=== PATIENT | female | born 1985 | race Caucasian/White ===

== ENCOUNTER 2017-07-27 05:19 | Inpatient (IN) | payer OTHER ==
--- NOTE | 2017-07-24 05:59 | HPE ---
DATE OF PLANNED ADMISSION: 07/27/2017 This lady is having a repeat section 07/27/2017. She is a 32-year-old, 4, para 2 with one living child, whose last menstrual period (LMP) was 10/31/2016, estimated date of delivery (EDC) 08/17/2017. Her past history is in 2011, at 32 weeks, had a classical section for hydrocephalic with demise. In 2013, had a repeat section at 37 weeks of gestation, delivered a live male , 6 pounds 1 ounce. The at 32 weeks of gestation was 4.6 pounds, male, but had marked abnormalities. In August 2014, had spontaneous (AB) with no dilation and curettage (D and C). ALLERGIES: She has no allergies. She is on vitamins, otherwise is unremarkable. The rest of her examination, she is normocephalic, atraumatic. Neck full range of motions. Pupils equal and reactive to light. Distal pulses are symmetric. No evidence of deep venous thrombosis (DVT), pulmonary embolism (PE), or superficial phlebitis. Chest is clear bilaterally to bases. No wheezes or rhonchi. No costovertebral angle (CVA) tenderness. Abdomen is soft. Four quadrant bowel sounds are noted. The incisional site is nontender. There are no rashes, lesions, or pruritus. No arthralgia or myalgia. No complaints of cough, wheezes, shortness of breath, or dyspnea on exertion. No allergies. No chest pain. No bleeding. Neurologically complete. No incontinence, urgency, or frequency. No nausea, vomiting, diarrhea, or constipation. No diabetic issues. 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 PAST MEDICAL HISTORY: Unremarkable. PAST SURGICAL HISTORY: As mentioned. FAMILY HISTORY: Is noncontributory. She does not smoke, drink, abuse drugs, and she has no domestic violence. Today, she weighs 145 pounds, is 5 feet 3 inches. Blood pressure is 118/65, pulse is 83, and temperature is 98.1. We counseled her regarding repeat section, including hemorrhage, infection, perforation, , reoperation, remote possibility of blood transfusion, remote possibility of hysterectomy, remote possibility of laceration, remote possibility of admission to intensive care unit (NICU). Patient has expressed understanding of the risks and benefits, and she did ask about trial of labor after section (TOLAC); however, it is not recommended after having one classical section. She has been treated for pyelonephritis and has test of cure, which was negative, and the rest of the she is on prophylactic Macrobid. IN SUMMARY: We have a 39+ weeks for elective repeat section. Risks and benefits were outlined. Patient understands, signed and witnessed the consent form, and procedure is planned as present. We spent 40 minutes in the [id number] consultation.
[2017-07-27] VITALS (8 sets, daily range): BP systolic 102–117; BP diastolic 55–75
[~2017-07-27] VITALS: Ht 160 cm; Wt 64.8 kg
[~2017-07-27 05:19] MED LIST: CEPH500C PO; PRENTAB55 PO
[2017-07-27] MEDS ORDERED: BUPIVACAINE HCL 0.25% 10 ML VIAL INFIL PRN (06:00)
[2017-07-27] MEDS ORDERED: ACETAMINOPHEN 650 MG SUPP PR ONE (06:00)
[2017-07-27] MEDS ORDERED: LR 1,000 ML IV SCH ×2 (06:00→09:30)
[2017-07-27] MEDS ORDERED: LR 1,000 ML IV ONE (06:00)
[2017-07-27] MEDS ORDERED: AZITHROMYCIN INJ 500 MG, VIAL MATE ADAPTER 1 EACH in D5W 250 ML IV ONE (06:00)
[2017-07-27] MEDS ORDERED: BICITRA 30ML SOLN UDC PO ONE (06:00)
[2017-07-27 06:16] LABS: MEAN CORPUSCULAR HEMOGLOBIN 27.8 pg (27.0-33.0); MEAN CORPUSCULAR HGB CONC 33.6 g/dl (32.0-36.5); MEAN CORPUSCULAR VOLUME 82.8 fl (80.0-96.0); PLATELET COUNT, AUTOMATED 244 10^3/uL (150-450); RED CELL DISTRIBUTION WIDTH 15.1 % (11.5-14.5); WHITE BLOOD COUNT 10.2 10^3/uL (4.0-10.0)
[2017-07-27] MEDS ORDERED: CEPH500T PO (07:20)
[2017-07-27] MEDS ORDERED: PRENTAB9 PO (07:20)
[2017-07-27] MEDS ORDERED: ONDANSETRON 4MG/2ML VIAL (J2405) IV PRN ×2 (08:03→09:30)
[2017-07-27] MEDS ORDERED: METOCLOPRAMIDE INJ 10MG/2ML VIAL (J2765) IV PRN ×2 (08:03→09:30)
[2017-07-27] MEDS ORDERED: NALOXONE INJ 0.4 MG/1 ML VIAL (J2310) IV PRN ×2 (08:03)
[2017-07-27] MEDS ORDERED: PHENYLephrine HCL 500 MCG/5 ML (100MCG/ML) SYRINGE (J2370) As Ordered ONE (08:10)
[2017-07-27] MEDS ORDERED: MORPHINE PRES-FREE INJ 10 MG/10 ML VIAL (J2274) As Ordered ONE (08:10)
[2017-07-27] MEDS ORDERED: OXYTOCIN INJ 10 UNITS/ML VIAL (J2590) As Ordered ONE (08:10)
[2017-07-27] MEDS ORDERED: KETOROLAC 60 MG/2 ML VIAL (J1885) As Ordered ONE (08:44)
[2017-07-27 08:48] LABS: CORD GAS HCO3 A 25.6 MEQ/L; CORD GAS O2 SAT A 24.4 %; CORD GAS PCO2 A 60.7 mmHg; CORD GAS PH A 7.243 UNITS; CORD GAS PO2 A 15.5 mmHg; CORD GAS SBC A 20.2 MEQ/L; CORD GAS TCO2 A 27.5 MEQ/L
[2017-07-27 08:49] LABS: CORD GAS ABE V -2.2; CORD GAS HCO3 V 23.7 MEQ/L; CORD GAS O2 SAT V 56.6 %; CORD GAS PCO2 V 44.6 mmHg; CORD GAS PH V 7.343 UNITS; CORD GAS PO2 V 23.8 mmHg; CORD GAS SBC V 21.6 MEQ/L; CORD GAS TCO2 V 25.1 MEQ/L
[2017-07-27] MEDS ORDERED: OXYTOCIN DRIP 30 UNITS in APPROPRIATE DILUENT 1 EA IV SCH (09:09)
[2017-07-27] MEDS ORDERED: RHOGAM 300 MCG (1500 IU) INJ (J2790) IM SCH (09:15)
[2017-07-27] MEDS ORDERED: MEASLES,MUMPS,RUBELLA VACCINE INJ (MMR-II) (90707) SC SCH (09:15)
[2017-07-27] MEDS ORDERED: MOM 30ML SUSPENSION UDC PO PRN (09:15)
[2017-07-27] MEDS ORDERED: DOCUSATE SODIUM 100 MG CAP PO PRN (09:15)
[2017-07-27] MEDS ORDERED: ANUSOL HC CREAM 30GM TOP PRN (09:15)
[2017-07-27] MEDS ORDERED: PERCOCET 5MG/325MG TAB PO PRN ×2 (09:15)
[2017-07-27] MEDS ORDERED: OXYTOCIN INJ 10 UNITS/ML VIAL (J2590) IV ONE (09:15)
[2017-07-27] MEDS ORDERED: METHYLERGONOVINE MALEATE 0.2 MG/ML VIAL (J2210) IM PRN (09:15)
[2017-07-27] MEDS ORDERED: MEPERIDINE INJ 25 MG/ML VIAL (J2175) IV PRN (09:30)
[2017-07-27] MEDS ORDERED: NALBUPHINE HCL 10 MG/ML AMP (J2300) IV PRN (09:30)
[2017-07-27] MEDS ORDERED: KETOROLAC 30 MG/ML VIAL (J1885) IV PRN (09:30)
[2017-07-27] MEDS ORDERED: fentaNYL 100 MCG/2 ML INJECTION (J3010) IV PRN (09:30)
[2017-07-27 09:34] LABS: HBSAG L&D NEGATIVE (NEGATIVE)
[2017-07-27] MEDS: NALBUPHINE HCL 10 MG/ML AMP (J2300) IV PRN ×2 (11:09→15:45)
[2017-07-27] MEDS: LR 1,000 ML IV SCH ×2 (12:00→15:30)
[2017-07-27] MEDS: IBUPROFEN 800 MG TAB PO SCH (17:14)
[2017-07-28] MEDS: IBUPROFEN 800 MG TAB PO SCH ×3 (00:21→17:06)
[2017-07-28 02:00] VITALS: BP 100/60
[2017-07-28 06:00] VITALS: BP 107/63
[2017-07-28 07:00] LABS: MEAN CORPUSCULAR HEMOGLOBIN 28.6 pg (27.0-33.0); MEAN CORPUSCULAR HGB CONC 33.9 g/dl (32.0-36.5); MEAN CORPUSCULAR VOLUME 84.5 fl (80.0-96.0); PLATELET COUNT, AUTOMATED 216 10^3/uL (150-450); RED CELL DISTRIBUTION WIDTH 15.6 % (11.5-14.5); WHITE BLOOD COUNT 12.7 10^3/uL (4.0-10.0)
--- NOTE | 2017-07-28 08:42 | IPN ---
DATE: 07/28/2017 day 2. This lady had a repeat section because of a classical previous section, live male infant 5 pounds 14 ounces, 2660 grams, of 8 and 9 and 1 and 5 minutes respectively. Arterial pH was 7.24, base excess -3.0, venous pH was 7.34, base excess -2.2. Admitting hemoglobin 13.4, hematocrit 39.9 and platelets were 244. Her day 1 hemoglobin 12.6, hematocrit 37.2 and platelets are 216. Vital signs: Today her blood pressure is 107/63, respirations 17, pulse 74 and temperature 97.6. She is presently breast-feeding, doing well, passing gas, voiding, has had a bowel movement. We discussed phlebitis, cystitis, mastitis, metritis and cellulitis, diet, excise pain management, perineal breast and wound care. She is planning on discharge tomorrow and she is requesting a Mirena IUCD for contraception. We had a discussion regarding her repeat section yesterday and the fact that she had a classical section and on entry into the abdomen we noticed an extension up on the anterior vertical incision of her section scar and also extension on the right side prior to actually initiating the section, indicating that there was subsequently a weakness in the previous vertical incision. We did repair them separately before repairing the rest of the incisional site, however, she plans on having a repeat section perhaps earlier than 37 weeks may be indicated. We will revisit this issue at her checkup. The patient is planned on discharge for tomorrow. cc: Stacey Holloway
[2017-07-28] MEDS: PRENATAL VITAMINS CHEWABLE TABLET PO SCH (10:02)
[2017-07-28 12:03] VITALS: BP 129/66
[2017-07-28 14:32] VITALS: BP 118/72
[2017-07-28 18:25] VITALS: BP 117/71
[2017-07-29] MEDS: IBUPROFEN 800 MG TAB PO SCH ×2 (00:53→08:28)
[2017-07-29 06:06] VITALS: BP 127/75
[2017-07-29] MEDS: PRENATAL VITAMINS CHEWABLE TABLET PO SCH (08:28)
[2017-07-29] MEDS ORDERED: IBUP-1114 PO (08:29)
[2017-07-29] MEDS ORDERED: OXYC1TAB23 PO (08:30)
[2017-07-29] MEDS ORDERED: MOM30SS PO (08:38)
[2017-07-29] MEDS ORDERED: COLA100C5 PO (08:38)
[2017-07-29] MEDS ORDERED: ANUS2.5C2 TOP (08:38)
[2017-07-29] MEDS ORDERED: ADACEL/BOOSTRIX VACCINE (DIPHTH/PERTUSS/ACELL/TETANUS)0.5ML SYR (90715) IM ONE (09:00)
--- NOTE | 2017-07-29 16:28 | DSES ---
DATE OF ADMISSION: 07/27/2017 DATE OF DISCHARGE: 07/29/2017 This lady is a 32-year-old 3, now para 3, who had a repeat section because of her previous classical section. Delivered a live male , 5 pounds 14 ounces, 2660 grams, of 8 and 9 at one and five minutes, respectively. Arterial pH was 7.24, base excess -3.0, venous pH 7.34, base excess -2.2. Admitting hemoglobin was 13.4, hematocrit 39.2, and platelets were 244. Discharge hemoglobin 12.6, hematocrit 37.2 and platelets are 216. We discussed phlebitis, cystitis, mastitis, metritis, and cellulitis, diet, exercise pain management, and perineal, breast, and wound care. At the time of her section she had a defect anteriorly and vertically from her previous classical section before we ever actually got to do the section. This will have to be taken into consideration if she wishes to have another because of the state of her uterus at that time. The rest the examination is unremarkable. Her vital signs: Blood pressure is 127/75, respirations 19, pulse 66, and temperature is 98.1. She is normocephalic, atraumatic. Neck: Full range of motion. Pupils equal and reactive to light. Distal pulses are symmetric. No evidence of deep vein thrombosis (DVT) , pulmonary embolism (PE) or superficial phlebitis. Lungs are clear bilaterally to bases. No wheezes or rhonchi. No costovertebral angle (CVA) tenderness. Uterus is 2 below. Lochia is moderate. Incision is clean and dry and healing. She has no rashes, lesions, or pruritus. No arthralgia or myalgia. No complaints of cough, wheezes, shortness of breath, or dyspnea on exertion. No chest pain. Not bleeding. Neurologic complete. No incontinency, urgency, or frequency. No nausea, vomiting, diarrhea, or constipation. No diabetic issues. She does not smoke, drink, abuse drugs. She is . Good support at home. No domestic violence. In summary, we have a repeat times three of a classical section. The patient was discharged to followup in the office in 6 weeks' time. Medications were given and dispensed at discharge. She has a 2-week incision check and a 6-week check.
--- NOTE | 2017-07-31 09:40 | IPN ---
DATE: 07/27/2017 This patient and requested circumcision of their male . After discussing the risks and benefits of circumcision, the medical and nonmedical indications, the penile block and the aftercare, expressed understanding of penile block, aftercare and complications, signed and witnessed consent form. We await the clearance by the electric train driver.
--- NOTE | 2017-07-31 10:40 | RO ---
DATE OF OPERATION: 07/27/2017 PREOPERATIVE DIAGNOSIS: Previous classical section. OPERATION PROPOSED: Repeat section. OPERATION PERFORMED: Repeat section. ANESTHESIA: Spinal plus local anesthetic for intraperitoneal procedures. ESTIMATED BLOOD LOSS: 300 mL SURGEON: Jhoan Willis MD ROLL SETTER: Lisandro Tyler MD DESCRIPTION OF PROCEDURE: After adequate time-out and Swain catheter in the bladder draining clear urine, acetaminophen suppository 1300 mg per rectum, sequentials on board, and adequate antibiotic coverage, a low transverse incision was made into the uterus through the previous abdominal incision passing through abdominal layers securing hemostasis. On opening into the peritoneal cavity, we noticed a defect in the upper part of the previous vertical incision, which was quite obvious, showing into the uterine cavity with membranes intact. We then did the low transverse incision. Artificial rupture of membranes (ARM) draining clear liquor, delivered a livebirth male infant weighing 2660 grams. scores of 8 and 9 at 1 and 5 minutes, respectfully. 5 pounds 14 ounces. Arterial pH 7.24, base excess -3.0, venous pH 7.34, base excess -2.2. The placenta was manually removed. Three-vessel cord, membranes, and tissues intact. The uterine cavity was swept out to clean. It was contracted well down under Pitocin. We then addressed both the defect in the upper segment and a low transverse incision. The angle stitches were placed, and we then repaired the defect in the vertical part of the incision, and then did separate two-layer closure of the low transverse incision, imbricating the second layer. With that done and with instrument pad count correct, we lavaged out the abdomen, identified ovaries and tubes were normal. The uterus was contracted well down under Pitocin. Once again, we reviewed the lower segment, which was clean and dry. We then went ahead and closed the peritoneum with a running stitch. Then, the fascia was closed in the usual fashion. Interrupted subcutaneous. Irrigating the subcutaneous fat and then Dexon 3-0 to the skin. Marcaine 0.25% to the skin with spray and Telfa, and the patient was then sent to recovery in good condition.
== END 2017-07-29 13:30 | disposition home or self-care (01) | DRG 766 ==
LOC: M LDI 05:19 → M OBS 10:49
PROVIDERS: ADMIT Obstetrics & Gynecology; ATTEND Obstetrics & Gynecology
PROC: 10D00Z1 Extraction of Products of Conception, Low, Open Approach (ICD-10-PCS; principal; 2017-07-27 07:30)
DX: O34.212 Maternal care for vertical scar from previous cesarean delivery (principal); Z3A.39 39 weeks gestation of pregnancy; Z37.0 Single live birth; O94 Sequelae of complication of pregnancy, childbirth, and the puerperium; O90.89 Other complications of the puerperium, not elsewhere classified

== ENCOUNTER → 2018-04-02 | Outpatient (REF) | payer OTHER | LOC: M SFHCLERA 16:51 | DX: R10.9 Unspecified abdominal pain (principal) | CPT/HCPCS: 87186 ==

== ENCOUNTER 2019-03-25 17:52 | Inpatient (IN) | payer OTHER ==
[~2019-03-25] VITALS: Ht 160 cm; Wt 50.7 kg
[~2019-03-25 17:52] MED LIST changes: +ANUS2.5C2 TOP; +CEPH500T PO; +COLA100C5 PO; +IBUP-1114 PO; +MOM30SS PO; +OXYC1TAB23 PO; +PRENTAB9 PO
[2019-03-25 18:50] LABS: BASO # 0.1 10^3/uL (0.0-0.2); BASO % 0.6 % (0.0-1.0); HEMATOCRIT 57.9 % (36.0-47.0); LYMPH # 0.4 10^3/uL (1.5-4.5); LYMPH % 2.2 % (24.0-44.0); MEAN CORPUSCULAR HEMOGLOBIN 33.5 pg (27.0-33.0); MEAN CORPUSCULAR HGB CONC 31.6 g/dl (32.0-36.5); MEAN CORPUSCULAR VOLUME 105.9 fl (80.0-96.0); MONO % 5.8 % (0.0-5.0); NEUTROPHILS # 15.8 10^3/uL (1.8-7.7); PLATELET COUNT, AUTOMATED 219 10^3/uL (150-450); RED BLOOD COUNT 5.47 10^6/uL (4.00-5.40); WHITE BLOOD COUNT 17.4 10^3/uL (4.0-10.0)
[2019-03-25 18:58] LABS: HEMOGLOBIN 18.3 g/dl (12.0-15.5)
[2019-03-25 19:20] LABS: ALBUMIN 4.6 GM/DL (3.2-5.2); BILIRUBIN,DIRECT 0.2 MG/DL (0.0-0.2); BILIRUBIN,TOTAL 0.9 MG/DL (0.2-1.0); CALCIUM LEVEL 9.1 MG/DL (8.5-10.1); CREATININE FOR GFR 1.51 MG/DL (0.55-1.30); GLOMERULAR FILTRATION RATE 42.2 (>60); POTASSIUM SERUM 4.7 MEQ/L (3.5-5.1); TOTAL PROTEIN 10.1 GM/DL (6.4-8.2)
[2019-03-25] MEDS ORDERED: ONDANSETRON 4MG/2ML VIAL (J2405) IV ONE (21:15)
[2019-03-25] MEDS ORDERED: NS 1,000 ML IV ONE ×2 (21:15)
[2019-03-25] MEDS ORDERED: MORPHINE 4 MG/ML 1ML VIAL/SYRINGE (J2270) IV ONE (21:30)
[2019-03-25] MEDS ORDERED: PROMETHAZINE INJ 25 MG/ML VIAL (J2550) IV ONE (22:30)
[2019-03-25] MEDS ORDERED: ISOVUE-370 76% 100ML VIAL (Q9967) As Ordered ONE (22:53)
[2019-03-25 22:56] LABS: HEMOGLOBIN A1c 5.2 %
[2019-03-25] MEDS ORDERED: HYDROMORPHONE HCL 0.5 MG/ 0.5 ML SYRINGE (J1170 PER 1) IV PRN (23:30)
--- NOTE | 2019-03-26 00:24 | REPVR ---
EXAM: CT Abdomen and Pelvis With Contrast EXAM DATE/TIME: 03/25/2019 10:18 PM CLINICAL HISTORY: 33 years old, female; Abdominal pain; Epigastric; Additional info: Abd pain, pancreatitis TECHNIQUE: Imaging protocol: Axial computed tomography images of the abdomen and pelvis with intravenous contrast. Coronal and sagittal reformatted images were created and reviewed. Radiation optimization: All CT scans at this facility use at least one of these dose optimization techniques: automated exposure control; mA and/or kV adjustment per patient size (includes targeted exams where dose is matched to clinical indication); or iterative reconstruction. Contrast material: ISO;Contrast volume: 100 ml;Contrast route: AC; COMPARISON: No relevant prior studies available. FINDINGS: Mediastinum: Small hiatal hernia and mild nonspecific distal esophageal wall thickening, suggesting chronic reflux/esophagitis. Liver: Diffuse hepatic steatosis. Gallbladder and bile ducts: No radiodense gallstones. No biliary ductal dilatation. Pancreas: Moderate peripancreatic stranding and edema. No necrosis or hemorrhage. 1.6 x 1.5 cm ovoid hyperdense lesion abutting the pancreatic tail. Spleen: Unremarkable. Adrenals: Unremarkable. Kidneys and ureters: No mass. No radiodense calculi. No hydronephrosis. Stomach and bowel: Mild prominence of the proximal small bowel loops in the upper abdomen, likely reactive. Submucosal fat deposition in the terminal ileum and colon, consistent with chronic inflammation. No obstruction. No pneumatosis. Appendix: Normal. Intraperitoneal space: Small ascites, likely reactive. No organized collection. No free air. Vasculature: Unremarkable. No aneurysm. Lymph nodes: No pathologically enlarged lymph nodes. Bladder: Unremarkable. Reproductive: Unremarkable. Bones/joints: No acute osseous abnormality. Soft tissues: Unremarkable. IMPRESSION: 1. Acute pancreatitis, as described above. Correlate with serum amylase and lipase levels. No drainable fluid collection. No necrosis or hemorrhage. 2. 1.6 x 1.5 cm ovoid hyperdense lesion abutting the pancreatic tail. Malignancy cannot be excluded. Suggest MRI upon resolution of the patient's acute clinical issues. 3. Additional findings, as above. Electronically signed by: Len Golden On 03/26/2019 00:24:41 AM
[2019-03-26] MEDS ORDERED: MULTIVITAMIN -ADULT INJECTION 10 ML, THIAMINE INJection 100 MG, FOLIC ACID 1 MG in NS 1... IV ONE (02:15)
--- NOTE | 2019-03-26 02:29 | HPEPDOC ---
General Date of Admission 03/26/19 Date of Service: Mar 26, 2019 Chief Complaint The patient is a 33-year-old female admitted with a reason for visit of Naus/Vom/Back Pain. History of Present Illness This isn a 33 yo female with no significant pmhx who was drinking a lot of alcohol on Monday, but on Monday, she started having nausea, NBNB vomiting and abd pain radiating to the back with chills, but no fever, chest pain, sob, headache or diarrhea. Patient's pain is 2/10 during our interaction. She requesting clear liquid diet . nausea ia also better controlled. ROS - all 14 point review of system is negative except for whats listed in HPI Surgical hx - 3 c sections social - denied smoking , drinks 4-5 beer and couple shot couple times per week, denied drug use family hx - non- contributory allergy - none Home meds - vitamins - but not Physical exam Gen: NAD, healthy appearing , HEENT: normocephalic, atraumatic, no discharge from ears or nose, no oropharyngeal erythema or exudate, neck is supple, no lymphadenopathy, trachea midline CVS: tachycardic, RR, normal S1n S2, no murmur, rubs, or gallops, no edema, no jvd Resp: LCTAB, no rhonchi, wheezes or crackles Abd : soft, mild tenderness, normal bowel sounds, no rebound tenderness or gu arding MSK: no swelling, full range of motion, strength 5/5 Neuro: AOAx3, no confusion, no focal deficit Psych: normal mood and affect, good judgment Assessment and plan Acute alcoholic pancreatitis and noted ?pancreatic mass on ct abd Acute renal failure and transaminitis noted leukocytosis noted - but lactic acid is wnl and no fever noted- lab results looks hemoconcentrated likely 2/2 vomiting and vol depletion, - monitor off abx -monitor cmp, avoid nephrotoxic agents -ciwa protocol -banana bag 200cc/hr for now - change fluid to ns when complete -bowel rest for now given pancreatic edema on CT scan - ice chips ok - advance diet as tolerated -consider surgery consult for pancreatic mass - prn pain meds -counseled on etoh cessation -f/u abd sono dvt ppx gi ppx full code , from home Home Medications Scheduled [id number]/Iron Fum/Folic/Docusate ( 19 Tablet) 1 Tab Tab, 1 TAB PO DAILY, (Reported) Allergies Coded Allergies: No Known Allergies (Unverified , 07/19/17) A-FIB/CHADSVASC A-FIB History Current/History of A-Fib/PAF?: No Current PO Anticoag Therapy: No Age/Risk Factor Scoring CHADSVASC: CHADSVASC Response (Comments) Value Age Risk Factor Age < 65 years old 0 Gender Risk Factor Female 1 Hx of CHF No 0 Hx of HTN No 0 Hx of Stroke/TIA/or VTE No 0 Hx of Diabetes No 0 Hx of Vascular Disease No 0 Total 1 Treatment Treatment ordered: NONE Reason Anticoagulant not given: Not indicated/[id number] Vital Signs Vital Signs Date Time Temp Pulse Resp B/P (MAP) Pulse Ox O2 Delivery O2 Flow Rate FiO2 03/26/19 00:20 16 03/25/19 23:52 97.6 124 120/76 (91) 100 Room Air Laboratory Data Labs 24H Laboratory Tests 2 03/25/19 18:26: Estimated Mean Plasma Glucose 103, Hemoglobin A1c 5.2 03/25/19 18:33: Immature Granulocyte % (Auto) 0.4, White Blood Count 17.4H, Red Blood Count 5.47H, Hemoglobin 18.3H, Hematocrit 57.9H, Mean Corpuscular Volume 105.9H, Mean Corpuscular Hemoglobin 33.5H, Mean Corpuscular Hemoglobin Concent 31.6L, Red Cell Distribution Width 14.0, Platelet Count 219, Neutrophils (%) (Auto) 91.0H, Lymphocytes (%) (Auto) 2.2L, Monocytes (%) (Auto) 5.8H, Eosinophils (%) (Auto) 0.0, Basophils (%) (Auto) 0.6, Neutrophils # (Auto) 15.8H, Lymphocytes # (Auto) 0.4L, Monocytes # (Auto) 1.0H, Eosinophils # (Auto) 0.0, Basophils # (Auto) 0.1, Nucleated Red Blood Cells % (auto) 0.1H, Anion Gap 25H, Glomerular Filtration Rate 42.2L, Calcium Level 9.1, Aspartate Amino Transf (AST/SGOT) 150H, Alanine Aminotransferase (ALT/SGPT) 102H, Alkaline Phosphatase 113, Total Bilirubin 0.9, Direct Bilirubin 0.2, Total Protein 10.1H, Albumin 4.6, Albumin/Globulin Ratio 0.84L, Lipase [id number] 03/25/19 23:59: Urine Color YELLOW, Urine Appearance CLOUDYH, Urine pH 5.0, Urine Specific [place] 1.025, Urine Protein 1+H, Urine Glucose (UA) 3+H, Urine Ketones 2+H, Urine Blood 3+H, Urine Nitrite NEGATIVE, Urine Bilirubin NEGATIVE, Urine Urobilinogen 0.2, Urine Leukocyte Esterase NEGATIVE, Urine WBC (Auto) 43H, Urine RBC (Auto) 7H, Urine Hyaline Casts (Auto) 12, Urine Bacteria (Auto) NEGATIVE, Urine Squamous Epithelial Cells 7, Urine Transitional Epithelial Cells <1, Urine Granular Casts (Auto) 17, Urine Mucus (Auto) SMALL, Urine Sperm (Auto) 03/26/19 00:27: Lactic Acid Level 1.8 CBC/BMP Laboratory Tests 03/25/19 18:33 Red Blood Count 5.47 H, Mean Corpuscular Volume 105.9 H, Mean Corpuscular Hemoglobin 33.5 H, Mean Corpuscular Hemoglobin Concent 31.6 L, Red Cell Distribution Width 14.0, Neutrophils (%) (Auto) 91.0 H, Lymphocytes (%) (Auto) 2.2 L, Monocytes (%) (Auto) 5.8 H, Eosinophils (%) (Auto) 0.0, Basophils (%) (Auto) 0.6, Neutrophils # (Auto) 15.8 H, Lymphocytes # (Auto) 0.4 L, Monocytes # (Auto) 1.0 H, Eosinophils # (Auto) 0.0, Basophils # (Auto) 0.1 Microbiology Microbiology 03/25/19 Urine Culture, Received Pending Plan / VTE VTE Prophylaxis Ordered?: Yes KASHMIR HURTADO MD Mar 26, 2019 02:25
[2019-03-26 06:40] LABS: HEMATOCRIT 49.1 % (36.0-47.0); MEAN CORPUSCULAR HEMOGLOBIN 33.9 pg (27.0-33.0); MEAN CORPUSCULAR HGB CONC 32.8 g/dl (32.0-36.5); MEAN CORPUSCULAR VOLUME 103.4 fl (80.0-96.0); PLATELET COUNT, AUTOMATED 152 10^3/uL (150-450); RED BLOOD COUNT 4.75 10^6/uL (4.00-5.40); WHITE BLOOD COUNT 19.2 10^3/uL (4.0-10.0)
[2019-03-26 06:48] LABS: HEMOGLOBIN 16.1 g/dl (12.0-15.5)
[2019-03-26 07:04] LABS: CALCIUM LEVEL 7.2 MG/DL (8.5-10.1); CREATININE FOR GFR 1.22 MG/DL (0.55-1.30); MAGNESIUM LEVEL 2.4 MG/DL (1.8-2.4); POTASSIUM SERUM 3.8 MEQ/L (3.5-5.1)
[2019-03-26] MEDS: HEPARIN SOD (PORCINE) 5000 UNITS/ML VIAL SC SCH ×3 (07:57→21:01)
[2019-03-26] MEDS: MORPHINE 4 MG/ML 1ML VIAL/SYRINGE (J2270) IV PRN ×4 (10:04→23:13)
[2019-03-26] MEDS: NS 1,000 ML IV SCH ×5 (10:04→23:12)
[2019-03-26] MEDS: PRENATAL VITAMINS CHEWABLE TABLET PO SCH (10:25)
[2019-03-26] MEDS: DOCUSATE SODIUM 100 MG CAP PO SCH ×2 (10:25→21:01)
[2019-03-26] MEDS: PANTOPRAZOLE 40MG TAB (PROTONIX) PO SCH (10:25)
[2019-03-26 15:16] VITALS: BP 141/77
[2019-03-26 15:20] VITALS: BP 141/77
[2019-03-26] MEDS: ACETAMINOPHEN TAB 650MG DOSE (2X325MG) PO PRN ×2 (15:57→21:04)
--- NOTE | 2019-03-26 16:11 | IPNPDOC ---
Date Seen The patient was seen on 03/26/19. Progress Note SUBJECTIVE: Patient is a 33-year-old white female with past medical history of kidney infection who presented to the emergency room with nausea, vomiting, and back pain. She admits to drinking an excessive amount of alcohol on Monday. On Monday she began having nausea, non-bloody non-bilious vomiting, and abdominal pain (2/10) radiating to her back. She also states that she had chills throug hout the day. She presented to the ER on 03/25/19 after experiencing similar symptoms. She denies fever, chest pain, shortness of breath, or diarrhea. Patient's nausea was controlled in the ER and she was placed on NPO diet. Patient examined in ER. She states that she is still having dull epigastric pain that does not radiate to her back; she rates the pain as a 7/10. Mrs. León states that she has vomited since being in the ER and has had continuous nausea. She feels weak and fatigued but denies diarrhea, syncope, dizziness, chest pain, or chest palpitations. She requested more medication for pain management while I was in the room with her. She is tolerating ice chips and has asked to advance her diet and take a shower. OBJECTIVE PHYSICAL EXAMINATION: VITAL SIGNS: Please see below. GENERAL: 33 year old well nourished female lying in bed. She was alert but in pain. HEENT: NC AT, mucous membranes moist CARDIOVASCULAR: regular rate and rhythm, normal S1S2 RESPIRATORY: Clear to auscultation bilaterally ABDOMINAL: soft, normal bowel sounds, tender to palpation in epigastric region and LUQ. EXTREMITIES: No edema, cyanosis, or rash noted. NEUROLOGICAL: Alert and oriented x3, no focal deficits PSYCHOLOGICAL: normal affect, history of alcohol abuse. LABORATORY DATA, IMAGING STUDIES, MICROBIOLOGY: Please see below. 1. Abdomen/pelvis CT 03/25/19: 1. Acute pancreatitis, as described above. Correlate with serum amylase and lipase levels. No drainable fluid collection. No necrosis or hemorrhage. 2. 1.6 x 1.5 cm ovoid hyperdense lesion abutting the pancreatic tail. Malignancy cannot be excluded. Suggest MRI upon resolution of the patient's acute clinical issues. DVT prophylaxis ordered?: Yes, Heparin ASSESSMENT AND PLAN: Patient is a 33-year-old white female with past medical history of kidney infection PROBLEMS: 1. Acute pancreatitis likely 2/2 to alcohol abuse, less likely 2/2 to high triglycerides -Patient on NPO diet, advance diet as tolerated -c/w 250cc/hr IV fluids -c/w morphine and Tylenol prn for pain -Ordered triglyceride panel to r/o hypertriglyceridemia -Patient fasting glucose: 210 Pancreatic lesion on imaging - CT imaging noted above - discussed these results with patient on 03/26/19; patient has verbalized understanding of findings and need for follow up imaging - MRI ordered to assess hyperdense lesion on pancreatic tail 2. Transaminitis likely 2/2 to acute pancreatitis -AST/ALT 150/102 3. Leukocytosis -Urine culture pending -Monitor patient for fever, not currently on antibiotics. 4. Alcohol abuse -[facility] protocol -elder counselor patient on alcohol cessation -Supplemented with multivitamin DISPOSITION: Patient is stable and prognosis is good. We have ordered a MRI to further assess hyperdense lesion on Abdominal CT. Provide patient with supportive care. VS, I&O, 24H, Fishbone Vital Signs/I&O Vital Signs Date Time Temp Pulse Resp B/P (MAP) Pulse Ox O2 Delivery O2 Flow Rate FiO2 03/26/19 15:06 132/82 (99) 100 03/26/19 14:51 92 03/26/19 14:29 18 03/26/19 14:19 97.7 03/26/19 13:36 Room Air Laboratory Data 24H LABS Laboratory Tests 2 03/25/19 18:26: Estimated Mean Plasma Glucose 103, Hemoglobin A1c 5.2 03/25/19 18:33: Immature Granulocyte % (Auto) 0.4, White Blood Count 17.4H, Red Blood Count 5.47H, Hemoglobin 18.3H, Hematocrit 57.9H, Mean Corpuscular Volume 105.9H, Mean Corpuscular Hemoglobin 33.5H, Mean Corpuscular Hemoglobin Concent 31.6L, Red Cell Distribution Width 14.0, Platelet Count 219, Neutrophils (%) (Auto) 91.0H, Lymphocytes (%) (Auto) 2.2L, Monocytes (%) (Auto) 5.8H, Eosinophils (%) (Auto) 0.0, Basophils (%) (Auto) 0.6, Neutrophils # (Auto) 15.8H, Lymphocytes # (Auto) 0.4L, Monocytes # (Auto) 1.0H, Eosinophils # (Auto) 0.0, Basophils # (Auto) 0.1, Nucleated Red Blood Cells % (auto) 0.1H, Anion Gap 25H, Glomerular Filtration R ate 42.2L, Calcium Level 9.1, Aspartate Amino Transf (AST/SGOT) 150H, Alanine Aminotransferase (ALT/SGPT) 102H, Alkaline Phosphatase 113, Total Bilirubin 0.9, Direct Bilirubin 0.2, Total Protein 10.1H, Albumin 4.6, Albumin/Globulin Ratio 0.84L, Lipase [id number], POC Beta HCG, Quantitative < 5.0 03/25/19 23:59: Urine Color YELLOW, Urine Appearance CLOUDYH, Urine pH 5.0, Urine Specific [place] 1.025, Urine Protein 1+H, Urine Glucose (UA) 3+H, Urine Ketones 2+H, Urine Blood 3+H, Urine Nitrite NEGATIVE, Urine Bilirubin NEGATIVE, Urine Urobilinogen 0.2, Urine Leukocyte Esterase NEGATIVE, Urine WBC (Auto) 43H, Urine RBC (Auto) 7H, Urine Hyaline Casts (Auto) 12, Urine Bacteria (Auto) NEGATIVE, Urine Squamous Epithelial Cells 7, Urine Transitional Epithelial Cells <1, Urine Granular Casts (Auto) 17, Urine Mucus (Auto) SMALL, Urine Sperm (Auto) 03/26/19 00:27: Lactic Acid Level 1.8 03/26/19 06:24: Nucleated Red Blood Cells % (auto) 0.0, Anion Gap 17H, Glomerular Filtration Rate 54.0L, Lactic Acid Level 0.9, Blood Urea Nitrogen 18, Creatinine 1.22, Sodium Level 138, Potassium Level 3.8, Chloride Level 112H, Carbon Dioxide Level 9L, Calcium Level 7.2#L, Magnesium Level 2.4 CBC/BMP Laboratory Tests 03/25/19 18:33 Red Blood Count 5.47 H, Mean Corpuscular Volume 105.9 H, Mean Corpuscular Hemoglobin 33.5 H, Mean Corpuscular Hemoglobin Concent 31.6 L, Red Cell Distribution Width 14.0, Neutrophils (%) (Auto) 91.0 H, Lymphocytes (%) (Auto) 2.2 L, Monocytes (%) (Auto) 5.8 H, Eosinophils (%) (Auto) 0.0, Basophils (%) (Auto) 0.6, Neutrophils # (Auto) 15.8 H, Lymphocytes # (Auto) 0.4 L, Monocytes # (Auto) 1.0 H, Eosinophils # (Auto) 0.0, Basophils # (Auto) 0.1 03/26/19 06:24 Red Blood Count 4.75, Mean Corpuscular Volume 103.4 H, Mean Corpuscular Hemoglobin 33.9 H, Mean Corpuscular Hemoglobin Concent 32.8, Red Cell Distribution Width 13.8, Calcium Level 7.2 #L Microbiology Microbiology 03/25/19 Urine Culture, Received Pending GME ATTESTATION GME ATTESTATION My faculty preceptor for this patient encounter was physically present during the encounter and was fully available. All aspects of the patient interview, examination, medical decision making process, and medical care plan development were reviewed and approved by the faculty preceptor. The faculty preceptor is aware and concurs with the plan as stated in the body of this note and will attest to such by his/her cosignature. ATTENDING NOTE I, Jn Goetz, have independently examined this patient and performed my own physical exam, as well as reviewed the documentation and edited where necessary. I have discussed in detail with the resident / student the findings and plan of treatment as documented by the resident / student and edited their note. I agree with their findings and treatment plan and have edited their documentation. I will continue to follow the patient during this hospital stay. ZHOU SINGLETARY OMS-3 Mar 26, 2019 16:11 JN GOETZ MD Mar 26, 2019 16:47
[2019-03-26 20:00] VITALS: BP_SYST 124; BP_SYST 128; BP_DIAS 64; BP_DIAS 78
[2019-03-26] MEDS ORDERED: PROHANCE 279.3MG/ML 15ML VIAL (A9576) As Ordered ONE (20:03)
--- NOTE | 2019-03-26 23:42 | REPVR ---
EXAM: MR Abdomen Without and With Contrast EXAM DATE/TIME: 03/26/2019 8:36 PM CLINICAL HISTORY: 33 years old, female; Abnormal Findings; Abnormal Radiologic Finding of the Abdomen; Radiologic exam and body structure: pancreas; Abdominal tenderness and Nausea and Other: pain; Additional Info: pancratic mass evaulation TECHNIQUE: Imaging protocol: MR of the abdomen without and with intravenous contrast. Contrast material: PROHANCE;Contrast volume: 6 ml;Contrast route: IV; COMPARISON: CT ABD/PEL W/IV CONTRAST ONLY 03/25/2019 10:58 PM FINDINGS: Limitations: Examination is limited by motion artifact. Upper abdomen is not fully imaged on the study. Liver: Visualized liver is unremarkable. Gallbladder and bile ducts: Gallbladder is distended. No gallbladder wall thickening. No filling defects in the gallbladder. Pancreas: No pancreatic ductal dilatation. Severe peripancreatic fluid collections. Circumscribed exophytic T2-hypointense, T1-isointense solid lesion which is slightly hypervascular relative to the pancreas in the tail of the pancreas measuring 1.5 x 1.7 cm. Spleen: Visualized spleen is unremarkable. Adrenals: Unremarkable. No mass. Kidneys and ureters: Unremarkable. No solid mass. No hydronephrosis. Stomach and bowel: Visualized stomach is unremarkable. Visualized bowel is unremarkable. Intraperitoneal space: No loculated collection. Arteries: No abdominal aortic aneurysm. Bones/joints: Unremarkable. Soft tissues: Unremarkable. IMPRESSION: 1. Severe peripancreatic fluid collections. Consistent with acute pancreatitis. 2. No pancreatic ductal dilatation. 3. Circumscribed exophytic solid lesion in the tail of the pancreas. Differential diagnosis includes but not limited to exophytic pancreatic cancer versus solid pseudopapillary tumor of pancreas. Endocrine tumor is less likely. Recommend routine followup followup with tissue correlation. Electronically signed by: Tracy Urbano On 03/26/2019 23:41:59 PM
--- NOTE | 2019-03-26 23:45 | REPVR ---
EXAM: US Abdomen Complete EXAM DATE/TIME: 03/26/2019 3:54 AM CLINICAL HISTORY: 33 years old, female; Abnormal Findings; Abnormal Lab Test and Abnormal Radiologic Finding of the Abdomen; Radiologic exam and body structure: CT; Elevated Lipase and Elevated liver enzymes; Additional Info: transaminitis//acute pancreatitis TECHNIQUE: Imaging protocol: Real-time ultrasound of the abdomen with image documentation. COMPARISON: CT ABD/PEL W/IV CONTRAST ONLY 03/25/2019 10:58 PM FINDINGS: Liver: Fatty infiltration of the liver. Gallbladder: No gallbladder wall thickening. No gallstones. Gallbladder is dilated. Common bile duct: CBD measures 4.6 mm in diameter. Pancreas: Visualized pancreas is edematous. Discrete pancreatic mass is not identified on this study. Right kidney: Right kidney measures 9.5 cm in length. No right hydronephrosis. No masses. Left kidney: Left kidney measures 10.7 cm in length the No left hydronephrosis. No masses. Spleen: Spleen measures 7.9 cm in length. No masses. Aorta: Aorta measures 2.0 cm in AP diameter. Unremarkable. Inferior vena cava: Normal. Intraperitoneal space: Trace free fluid in the right upper quadrant. IMPRESSION: 1. Visualized pancreas is edematous. Consistent with known pancreatitis. 2. Fatty infiltration of the liver. 3. Trace free fluid in the right upper quadrant. Electronically signed by: Tracy Urbano On 03/26/2019 23:44:59 PM
[2019-03-26 23:59] VITALS: BP 124/78
[2019-03-27] VITALS (7 sets, daily range): BP systolic 130–154; BP diastolic 74–89
[2019-03-27] MEDS: ACETAMINOPHEN TAB 650MG DOSE (2X325MG) PO PRN (02:11)
[2019-03-27] MEDS: NS 1,000 ML IV SCH ×5 (03:32→22:55)
[2019-03-27] MEDS: MORPHINE 4 MG/ML 1ML VIAL/SYRINGE (J2270) IV PRN (04:32)
[2019-03-27] MEDS: HEPARIN SOD (PORCINE) 5000 UNITS/ML VIAL SC SCH ×3 (06:12→21:11)
[2019-03-27] MEDS: DOCUSATE SODIUM 100 MG CAP PO SCH ×2 (07:51→20:53)
[2019-03-27] MEDS: PANTOPRAZOLE 40MG TAB (PROTONIX) PO SCH (07:51)
[2019-03-27] MEDS: PRENATAL VITAMINS CHEWABLE TABLET PO SCH (07:51)
[2019-03-27 09:10] LABS: BASO % 0.1 % (0.0-1.0); EOS % 0.1 % (0.0-3.0); HEMOGLOBIN 14.6 g/dl (12.0-15.5); LYMPH # 0.4 10^3/uL (1.5-4.5); LYMPH % 2.5 % (24.0-44.0); MEAN CORPUSCULAR HEMOGLOBIN 33.4 pg (27.0-33.0); MEAN CORPUSCULAR VOLUME 98.4 fl (80.0-96.0); MONO # 0.6 10^3/uL (0.0-0.8); MONO % 3.9 % (0.0-5.0); NEUTROPHILS # 14.7 10^3/uL (1.8-7.7); NEUTROPHILS % 92.5 % (36.0-66.0); RED BLOOD COUNT 4.37 10^6/uL (4.00-5.40); WHITE BLOOD COUNT 15.9 10^3/uL (4.0-10.0)
[2019-03-27] MEDS: SENOKOT S TAB PO SCH ×2 (09:15→20:53)
[2019-03-27] MEDS ORDERED: NORCO, ANEXSIA 5/325MG TABLET (HYDROcodone/ACETAMINOPHEN) PO PRN (09:15)
[2019-03-27] MEDS: NORCO, ANEXSIA 5/325MG TABLET (HYDROcodone/ACETAMINOPHEN) PO PRN ×4 (09:16→21:12)
[2019-03-27 09:30] LABS: ALBUMIN 2.8 GM/DL (3.2-5.2); ALT/SGPT 45 U/L (12-78); BLOOD UREA NITROGEN 5 MG/DL (7-18); CALCIUM LEVEL 7.4 MG/DL (8.5-10.1); CARBON DIOXIDE LEVEL 20 MEQ/L (21-32); CHLORIDE LEVEL 108 MEQ/L (98-107); CREATININE FOR GFR 0.63 MG/DL (0.55-1.30); GLOMERULAR FILTRATION RATE > 60.0 (>60); GLUCOSE, FASTING 123 MG/DL (70-100); POTASSIUM SERUM 2.9 MEQ/L (3.5-5.1); SODIUM LEVEL 139 MEQ/L (136-145); TOTAL PROTEIN 6.4 GM/DL (6.4-8.2)
[2019-03-27 09:57] LABS: PLATELET COUNT, AUTOMATED 94 10^3/uL (150-450)
[2019-03-27] MEDS ORDERED: MOM 30ML SUSPENSION UDC PO PRN (10:30)
[2019-03-27] MEDS ORDERED: MIRALAX *UNIT DOSE* 17GM PACKET PO PRN (10:30)
--- NOTE | 2019-03-27 10:37 | IPNPDOC ---
Date Seen The patient was seen on 03/27/19. Progress Note SUBJECTIVE: Patient is a 33-year-old white female with past medical history of kidney infection who presented to the emergency room with nausea, vomiting, and back pain. She admits to drinking an excessive amount of alcohol on Monday. On Monday she began having nausea, non-bloody non-bilious vomiting, and abdominal pain (2/10) radiating to her back. She also states that she had chills throug hout the day. She presented to the ER on 03/25/19 after experiencing similar symptoms. She denies fever, chest pain, shortness of breath, or diarrhea. Patient's nausea was controlled in the ER and she was placed on NPO diet. Patient examined at bedside. She is feeling about the same as she was yesterday. Her epigastric/ LUQ pain level has been fluctuating between a 5-8 out of 10. She states that the pain radiates to the right side of her lower back. Her stomach feels more distended today; she has been unable to have a bowel movement but has been urinating frequently. She denies fever, chills, nausea, vomiting, or diarrhea. OBJECTIVE PHYSICAL EXAMINATION: VITAL SIGNS: Please see below. GENERAL: 33 year old well nourished female lying in bed. She was alert but in pain. HEENT: NC AT, mucous membranes moist CARDIOVASCULAR: regular rate and rhythm, normal S1S2 RESPIRATORY: Clear to auscultation bilaterally ABDOMINAL: soft, normal bowel sounds, abdomen appears distended today, tender to palpation in epigastric region and LUQ. EXTREMITIES: No edema, cyanosis, or rash noted. NEUROLOGICAL: Alert and oriented x3, no focal deficits PSYCHOLOGICAL: normal affect, history of alcohol abuse. LABORATORY DATA, IMAGING STUDIES, MICROBIOLOGY: Please see below. 1. Abdomen/pelvis CT 03/25/19: 1. Acute pancreatitis, as described above. Correlate with serum amylase and lipase levels. No drainable fluid collection. No necrosis or hemorrhage. 2. 1.6 x 1.5 cm ovoid hyperdense lesion abutting the pancreatic tail. Malignancy cannot be excluded. Suggest MRI upon resolution of the patient's ac josefina clinical issues. 2. Abdominal US 03/26/19: 1. Visualized pancreas is edematous. Consistent with known pancreatitis. 2. Fatty infiltration of the liver. 3. Trace free fluid in the right upper quadrant. 3. Abdominal MRI 03/26/19: 1. Severe peripancreatic fluid collections. Consistent with acute pancreatitis. 2. No pancreatic ductal dilatation. 3. Circumscribed exophytic solid lesion in the tail of the pancreas. Differential diagnosis includes but not limited to exophytic pancreatic cancer versus solid pseudopapillary tumor of pancreas. Endocrine tumor is less likely. Recommend routine followup with tissue correlation. DVT prophylaxis ordered?: Yes, Heparin ASSESSMENT AND PLAN: Patient is a 33-year-old white female with past medical history of kidney infection PROBLEMS: 1. Acute pancreatitis likely 2/2 to alcohol abuse, less likely 2/2 to high triglycerides -Advancing patient diet as tolerated -c/w 200cc/hr IV fluids -Pain management has been transitioned from morphine to PO oxycodone. -Patient given docusate for constipation likely 2/2 to pain medication -Ordered triglyceride panel to r/o hypertriglyceridemia 2. Pancreatic lesion on imaging - CT imaging noted above - Discussed these results with patient on 03/26/19; patient has verbalized understanding of findings and need for follow up imaging - MRI imaging noted above; routine followup with tissue correlation recommended; - Again verbalized the results of MRI imaging with the patient including the possibility that this could be a malignancy and that a tissue diagnosis might be required - After discussion with radiology, Dr. Matt, it was decided to pursue nuclear medicine options prior; Nuclear medicine liver with SPECT ordered 3. Hypokalemia -Potassium level 2.9 today 4. Transaminitis likely 2/2 to acute pancreatitis -AST: 58 -ALT within normal limits 5. Leukocytosis -WBC: 19.2 and trending up -Urine culture results in lab section; specimen appeared contaminated -Monitor patient for fever, not currently on antibiotics. 6. Alcohol abuse -[facility] protocol -chief counsel patient on alcohol cessation -Supplemented with multivitamin DISPOSITION: Patient is stable and prognosis is fair. Watching how patient does with an advanced diet. She will need followup for solid lesion found on tail of pancreas. Hoping to discharge home in next [address] Matt for input. VS, I&O, 24H, Fishbone Vital Signs/I&O Vital Signs Date Time Temp Pulse Resp B/P (MAP) Pulse Ox O2 Delivery O2 Flow Rate FiO2 03/27/19 09:16 18 03/27/19 08:00 98.1 87 134/85 (101) 99 03/26/19 13:36 Room Air I&O- Last 24 Hours up to 6 AM 03/27/19 06:00 Intake Total 5750 ml Output Total 1000 ml Balance 4750 ml Laboratory Data 24H LABS Laboratory Tests 2 03/27/19 08:00: Immature Granulocyte % (Auto) 0.9, White Blood Count 15.9H, Red Blood Count 4.37, Hemoglobin 14.6, Hematocrit 43.0, Mean Corpuscular Volume 98.4H, Mean Corpuscular Hemoglobin 33.4H, Mean Corpuscular Hemoglobin Concent 34.0, Red Cell Distribution Width 13.4, Platelet Count 94L, Neutrophils (%) (Auto) 92.5H, Lymphocytes (%) (Auto) 2.5L, Monocytes (%) (Auto) 3.9, Eosinophils (%) (Auto) 0.1, Basophils (%) (Auto) 0.1, Neutrophils # (Auto) 14.7H, Lymphocytes # (Auto) 0.4L, Monocytes # (Auto) 0.6, Eosinophils # (Auto) 0.0, Basophils # (Auto) 0.0, Nucleated Red Blood Cells % (auto) 0.0, Immature Platelet Fraction 7.6, Anion Gap 11, Glomerular Filtration Rate > 60.0, Blood Urea Nitrogen 5#L, Creatinine 0.63, Sodium Level 139, Potassium Level 2.9#*L, Chloride Level 108H, Carbon Dioxide Level 20L, Calcium Level 7.4L, Aspartate Amino Transf (AST/SGOT) 58H, Al anine Aminotransferase (ALT/SGPT) 45, Alkaline Phosphatase 68, Total Bilirubin 1.0, Total Protein 6.4#, Albumin 2.8#L, Albumin/Globulin Ratio 0.78L CBC/BMP Laboratory Tests 03/27/19 08:00 Red Blood Count 4.37, Mean Corpuscular Volume 98.4 H, Mean Corpuscular Hemoglobin 33.4 H, Mean Corpuscular Hemoglobin Concent 34.0, Red Cell Distribution Width 13.4, Neutrophils (%) (Auto) 92.5 H, Lymphocytes (%) (Auto) 2.5 L, Monocytes (%) (Auto) 3.9, Eosinophils (%) (Auto) 0.1, Basophils (%) (Auto) 0.1, Neutrophils # (Auto) 14.7 H, Lymphocytes # (Auto) 0.4 L, Monocytes # (Auto) 0.6, Eosinophils # (Auto) 0.0, Basophils # (Auto) 0.0, Calcium Level 7.4 L, Aspartate Amino Transf (AST/SGOT) 58 H, Alanine Aminotransferase (ALT/SGPT) 45, Alkaline Phosphatase 68, Total Bilirubin 1.0, Total Protein 6.4 #, Albumin 2.8 #L Microbiology Microbiology 03/25/19 Urine Culture - Final, Complete GME ATTESTATION GME ATTESTATION My faculty preceptor for this patient encounter was physically present during the encounter and was fully available. All aspects of the patient interview, examination, medical decision making process, and medical care plan development were reviewed and approved by the faculty preceptor. The faculty preceptor is aware and concurs with the plan as stated in the body of this note and will att est to such by his/her cosignature. ATTENDING NOTE I, Jn Goetz, have independently examined this patient and performed my own physical exam, as well as reviewed the documentation and edited where necessary. I have discussed in detail with the resident / student the findings and plan of treatment as documented by the resident / student and edited their note. I agree with their findings and treatment plan and have edited their documentation. I will continue to follow the patient during this hospital stay. ZHOU SINGLETARY OMS-3 Mar 27, 2019 10:37 JN GOETZ MD Mar 27, 2019 15:14
[2019-03-27] MEDS ORDERED: POTASSIUM CHLORIDE 10 MEQ SR TABLET PO ONE ×4 (11:00→21:00)
--- NOTE | 2019-03-27 16:14 | REP ---
Sulfur colloid nuclear liver spleen scan with SPECT: History: 33-year-old patient with acute pancreatitis and a 1.6 cm enhancing nodule and/or adjacent to the tail of the pancreas. Rule out accessory splenule. Comparison is made with recent CT and MRI scanning. Technique: 6.6 mCi technetium 99m sulfur colloid is injected and standard planar images are acquired including anterior, posterior, right and left anterior oblique, and right and left posterior oblique as well as right and left lateral views. A SPECT imaging acquisition is acquired and tomographic reconstruction imaging in all three planes was generated. Scintigraphic findings: There is evidence of mild colloid shift to the bone marrow. The liver measures 18.7 cm in craniocaudal span and is mildly prominent. No focal liver lesion is seen. The spleen is not enlarged measuring 7.5 cm in greatest diameter. It is homogeneous in uptake. There is no evidence to suggest ectopic splenic tissue or accessory splenule in the left mid abdomen. The 16 mm nodule adjacent to the inferior spleen tip does not take sulfur colloid. Impression: Mild colloid shift. Borderline liver size. The nodule seen at the tail of the pancreas does not appear to take up sulfur colloid. Therefore, this does not appear to be an accessory splenule. Electronically Signed by Malachi Matt MD 03/27/2019 06:14 P
[2019-03-27 17:22] LABS: BLOOD UREA NITROGEN 6 MG/DL (7-18); CALCIUM LEVEL 7.7 MG/DL (8.5-10.1); CARBON DIOXIDE LEVEL 26 MEQ/L (21-32); CHLORIDE LEVEL 106 MEQ/L (98-107); CREATININE FOR GFR 0.64 MG/DL (0.55-1.30); GLOMERULAR FILTRATION RATE > 60.0 (>60); GLUCOSE, FASTING 147 MG/DL (70-100); POTASSIUM SERUM 2.8 MEQ/L (3.5-5.1); SODIUM LEVEL 140 MEQ/L (136-145); TRIGLYCERIDES LEVEL 120 MG/DL (<150)
[2019-03-28] VITALS (7 sets, daily range): BP systolic 103–149; BP diastolic 66–90
[2019-03-28] MEDS: NORCO, ANEXSIA 5/325MG TABLET (HYDROcodone/ACETAMINOPHEN) PO PRN ×5 (03:43→23:24)
[2019-03-28] MEDS: NS 1,000 ML IV SCH (03:46)
[2019-03-28 05:12] LABS: BASO % 0.2 % (0.0-1.0); EOS % 0.1 % (0.0-3.0); HEMATOCRIT 38.6 % (36.0-47.0); HEMOGLOBIN 13.6 g/dl (12.0-15.5); LYMPH # 0.6 10^3/uL (1.5-4.5); LYMPH % 3.5 % (24.0-44.0); MEAN CORPUSCULAR HEMOGLOBIN 33.8 pg (27.0-33.0); MEAN CORPUSCULAR HGB CONC 35.2 g/dl (32.0-36.5); MONO % 5.6 % (0.0-5.0); NEUTROPHILS # 15.3 10^3/uL (1.8-7.7); NEUTROPHILS % 89.6 % (36.0-66.0); RED BLOOD COUNT 4.02 10^6/uL (4.00-5.40)
[2019-03-28 05:14] LABS: PLATELET COUNT, AUTOMATED 82 10^3/uL (150-450)
[2019-03-28 05:37] LABS: ALBUMIN 2.7 GM/DL (3.2-5.2); ALT/SGPT 37 U/L (12-78); BILIRUBIN,TOTAL 1.2 MG/DL (0.2-1.0); BLOOD UREA NITROGEN 4 MG/DL (7-18); CALCIUM LEVEL 7.7 MG/DL (8.5-10.1); CARBON DIOXIDE LEVEL 26 MEQ/L (21-32); CHLORIDE LEVEL 105 MEQ/L (98-107); CREATININE FOR GFR 0.53 MG/DL (0.55-1.30); GLOMERULAR FILTRATION RATE > 60.0 (>60); GLUCOSE, FASTING 182 MG/DL (70-100); MAGNESIUM LEVEL 1.9 MG/DL (1.8-2.4); POTASSIUM SERUM 2.9 MEQ/L (3.5-5.1); SODIUM LEVEL 139 MEQ/L (136-145); TOTAL PROTEIN 6.7 GM/DL (6.4-8.2)
[2019-03-28] MEDS: HEPARIN SOD (PORCINE) 5000 UNITS/ML VIAL SC SCH ×3 (06:00→22:00)
[2019-03-28] MEDS: KCL 40MEQ in NS 1000ML 1,000 ML IV SCH ×2 (06:40→11:30)
[2019-03-28] MEDS: KCL 10MEQ/100ML SWI (KRUN) 10 MEQ in APPROPRIATE DILUENT 1 EA IV SCH ×2 (06:41→09:21)
[2019-03-28] MEDS: SENOKOT S TAB PO SCH ×2 (08:08→20:08)
[2019-03-28] MEDS: PRENATAL VITAMINS CHEWABLE TABLET PO SCH (08:09)
[2019-03-28] MEDS: PANTOPRAZOLE 40MG TAB (PROTONIX) PO SCH (08:09)
[2019-03-28] MEDS: DOCUSATE SODIUM 100 MG CAP PO SCH ×2 (08:09→20:08)
[2019-03-28 09:01] LABS: APPEARANCE, URINE CLEAR (CLEAR); BACTERIA, URINE AUTO 1+ (NEGATIVE); BILIRUBIN, URINE AUTO NEGATIVE (NEGATIVE); BLOOD, URINE BLOOD 1+ (NEGATIVE); COLOR, URINE STRAW (YELLOW); GLUCOSE, URINE (UA) AUTO 3+ mg/dL (NEGATIVE); KETONE, URINE AUTO 1+ mg/dL (NEGATIVE); LEUKOCYTE ESTERASE, URINE AUTO NEGATIVE (NEGATIVE); NITRITE, URINE AUTO NEGATIVE (NEGATIVE); PROTEIN, URINE AUTO NEGATIVE (NEGATIVE); RBC, URINE AUTO 4 /HPF (0-3); SPECIFIC GRAVITY URINE AUTO 1.005 (1.002-1.035); SQUAMOUS EPITHELIAL CELL UR AU 1 /HPF (0-6); UROBILINOGEN, URINE AUTO 0.2 mg/dL (0.0-2.0); WBC, URINE AUTO 5 /HPF (0-3)
--- NOTE | 2019-03-28 10:06 | IPNPDOC ---
Date Seen The patient was seen on 03/28/19. Progress Note SUBJECTIVE: Patient is a 33-year-old white female with past medical history of kidney infection who presented to the emergency room with nausea, vomiting, and back pain. She admits to drinking an excessive amount of alcohol on Monday. On Monday she began having nausea, non-bloody non-bilious vomiting, and abdominal pain (2/10) radiating to her back. She also states that she had chills through out the day. She presented to the ER on 03/25/19 after experiencing similar symptoms. She denies fever, chest pain, shortness of breath, or diarrhea. Patient's nausea was controlled in the ER and she was placed on NPO diet. Patient examined at bedside. She states that she is having right and left flank pain; the right side hurts more than the left. She had positive CVA tenderness on the right but denies dysuria or hematuria. A repeat Urine analysis has been ordered. She is no longer experiencing epigastric pain but does have tenderness to palpation in the 2 upper quadrants of her abdomen. Her diet was advanced yesterday and she seems to be tolerating it well. Her stomach feels less distended today; she has been unable to have a bowel movement but has been urinating frequently. Mrs. León is thrombocytopenic today, we will monitor platelet level closely. Patient is hoping to be discharged before 03/30/19 for a two week family trip to [place]. She will need followup for the pancreatic mass documented on imaging. We will call her PCP Dr. Hernandez to discuss further. She denies fever, chills, nausea, vomiting, or diarrhea. OBJECTIVE PHYSICAL EXAMINATION: VITAL SIGNS: Please see below. GENERAL: 33 year old well nourished female lying in bed. She was alert and appears tired. HEENT: NC AT, mucous membranes moist CARDIOVASCULAR: regular rate and irregular rhythm noted (patient's potassium levels are low), normal S1S2 RESPIRATORY: Clear to auscultation bilaterally ABDOMINAL: soft, normal bowel sounds, abdomen appears minimally distended today, tender to palpation in 2 upper quadrants. Right CVA tenderness, no suprapubic tenderness to palpation. EXTREMITIES: No edema, cyanosis, or rash noted. NEUROLOGICAL: Alert and oriented x3, no focal deficits PSYCHOLOGICAL: normal affect, history of alcohol abuse. LABORATORY DATA, IMAGING STUDIES, MICROBIOLOGY: Please see below. 1. Abdomen/pelvis CT 03/25/19: 1. Acute pancreatitis, as described above. Correlate with serum amylase and lipase levels. No drainable fluid collection. No necrosis or hemorrhage. 2. 1.6 x 1.5 cm ovoid hyperdense lesion abutting the pancreatic tail. Malignancy cannot be excluded. Suggest MRI upon resolution of the patient's acute clinical issues. 2. Abdominal US 03/26/19: 1. Visualized pancreas is edematous. Consistent with known pancreatitis. 2. Fatty infiltration of the liver. 3. Trace free fluid in the right upper quadrant. 3. Abdominal MRI 03/26/19: 1. Severe peripancreatic fluid collections. Consistent with acute pancreatitis. 2. No pancreatic ductal dilatation. 3. Circumscribed exophytic solid lesion in the tail of the pancreas. Differential diagnosis includes but not limited to exophytic pancreatic cancer versus solid pseudopapillary tumor of pancreas. Endocrine tumor is less likely. Recommend routine followup with tissue correlation. 4. Liver/Spleen scan NM 03/27/19: Mild colloid shift. Borderline liver size. The nodule seen at the tail of the pancreas does not appear to take up sulfur colloid. Therefore, this does not appear to be an accessory splenule. DVT prophylaxis ordered?: Yes, heparin ASSESSMENT AND PLAN: PROBLEMS: 1. Acute pancreatitis likely 2/2 to alcohol abuse, less likely 2/2 to high triglycerides -Advancing patient diet as tolerated -c/w 200cc/hr IV fluids -Pain management has been transitioned from morphine to PO oxycodone. -Patient given docusate for constipation likely 2/2 to pain medication -Ordered triglyceride panel to r/o hypertriglyceridemia -Patient having R flank pain, repeat urinalysis ordered. Not likely to be referred pain from pancreatitis. 2. Pancreatic lesion on imaging - CT imaging noted above - Discussed these results with patient on 03/26/19; patient has verbalized understanding of findings and need for follow up imaging - MRI imaging noted above; routine followup with tissue correlation recommended; - Again verbalized the results of MRI imaging with the patient including the p ossibility that this could be a malignancy and that a tissue diagnosis might be required - Nuclear medicine imaging did not suggest splenic tissue as an etiology; reported findings to patient - Will need tissue diagnosis; will coordinate with IR for outpatient biopsy 3. Hypokalemia -Potassium level 2.9 today -Supplementing patient with 2-40meq potassium with IV fluids 4. Transaminitis likely 2/2 to acute pancreatitis -resolved, within normal limits today 5. Leukocytosis -WBC: 17.0 and trending up -Repeat urinalysis ordered -Monitor patient for fever, not currently on antibiotics. 6. Alcohol abuse -[facility] protocol -adolescent counselor patient on alcohol cessation -Supplemented with multivitamin 7. Thrombocytopenia -Platelet count 82 -Decreased from 152 on 03/26/19 -Patient on heparin DISPOSITION: Patient is comfortable and prognosis is fair. Advancing diet as tolerated and managing pain. Repeat urinalysis ordered. Continuing to stabilize patient and treat pancreatitis. She will need follow-up consultation for exophytic solid lesion in the tail of the pancreas. We appreciate Dr. Matt for his input. Patient scheduled for discharge tomorrow. VS, I&O, 24H, Fishbone Vital Signs/I&O Vital Signs Date Time Temp Pulse Resp B/P (MAP) Pulse Ox O2 Delivery O2 Flow Rate FiO2 03/28/19 08:39 14 03/28/19 08:00 97.1 95 149/90 (109) 99 03/26/19 13:36 Room Air I&O- Last 24 Hours up to 6 AM 03/28/19 05:59 Intake Total 5560 ml Output Total 3600 ml Balance 1960 ml Laboratory Data 24H LABS Laboratory Tests 2 03/27/19 16:21: Anion Gap 8, Glomerular Filtration Rate > 60.0, Blood Urea Nitrogen 6L, Creatinine 0.64, Sodium Level 140, Potassium Level 2.8*L, Chloride Level 106, Carbon Dioxide Level 26, Calcium Level 7.7L, Triglycerides Level 120 03/28/19 04:34: Anion Gap 8, Glomerular Filtration Rate > 60.0, Blood Urea Nitrogen 4L, Creatinine 0.53L, Sodium Level 139, Potassium Level 2.9*L, Chloride Level 105, Carbon Dioxide Level 26, Calcium Level 7.7L, Immature Granulocyte % (Auto) 1.0, White Blood Count 17.0H, Red Blood Count 4.02, Hemoglobin 13.6, Hematocrit 38.6, Mean Corpuscular Volume 96.0, Mean Corpuscular Hemoglobin 33.8H, Mean Corpuscular Hemoglobin Concent 35.2, Red Cell Distribution Width 13.2, Platelet Count 82L, Neutrophils (%) (Auto) 89.6H, Lymphocytes (%) (Auto) 3.5L, Monocytes (%) (Auto) 5.6H, Eosinophils (%) (Auto) 0.1, Basophils (%) (Auto) 0.2, Neutrophils # (Auto) 15.3H, Lymphocytes # (Auto) 0.6L, Monocytes # (Auto) 1.0H, Eosinophils # (Auto) 0.0, Basophils # (Auto) 0.0, Nucleated Red Blood Cells % (auto) 0.0, Aspartate Amino Transf (AST/SGOT) 36, Alanine Aminotransferase (ALT /SGPT) 37, Alkaline Phosphatase 64, Total Bilirubin 1.2H, Total Protein 6.7, Albumin 2.7L, Magnesium Level 1.9, Albumin/Globulin Ratio 0.68L 03/28/19 08:37: Urine Appearance CLEAR, Urine Color STRAW, Urine pH 7.0, Urine Specific [place] 1.005, Urine Protein NEGATIVE, Urine Glucose (UA) 3+H, Urine Ketones 1+H, Urine Urobilinogen 0.2, Urine Bilirubin NEGATIVE, Urine Leukocyte Esterase NEGATIVE, Urine Blood 1+H, Urine Nitrite NEGATIVE, Urine WBC (Auto) 5H, Urine RBC (Auto) 4H, Urine Hyaline Casts (Auto) 0, Urine Bacteria (Auto) 1+H, Urine Squamous Epithelial Cells 1, Urine Sperm (Auto) CBC/BMP Laboratory Tests 03/27/19 16:21 Calcium Level 7.7 L 03/28/19 04:34 Calcium Level 7.7 L, Red Blood Count 4.02, Mean Corpuscular Volume 96.0, Mean Corpuscular Hemoglobin 33.8 H, Mean Corpuscular Hemoglobin Concent 35.2, Red Cell Distribution Width 13.2, Neutrophils (%) (Auto) 89.6 H, Lymphocytes (%) (Auto) 3.5 L, Monocytes (%) (Auto) 5.6 H, Eosinophils (%) (Auto) 0.1, Basophils (%) (Auto) 0.2, Neutrophils # (Auto) 15.3 H, Lymphocytes # (Auto) 0.6 L, Monocytes # (Auto) 1.0 H, Eosinophils # (Auto) 0.0, Basophils # (Auto) 0.0, Aspartate Amino Transf (AST/SGOT) 36, Alanine Aminotransferase (ALT/SGPT) 37, Alkaline Phosphatase 64, Total Bilirubin 1.2 H, Total Protein 6.7, Albumin 2.7 L Microbiology Microbiology 03/25/19 Urine Culture - Final, Complete GME ATTESTATION GME ATTESTATION My faculty preceptor for this patient encounter was physically present during the encounter and was fully available. All aspects of the patient interview, examination, medical decision making process, and medical care plan development were reviewed and approved by the faculty preceptor. The faculty preceptor is aware and concurs with the plan as stated in the body of this note and will attest to such by his/her cosignature. ATTENDING NOTE I, Jn Charlton, have independently examined this patient and performed my own physical exam, as well as reviewed the documentation and edited where necessary. I have discussed in detail with the resident / student the findings and plan of treatment as documented by the resident / student and edited their note. I agree with their findings and treatment plan and have edited their documentation. I will continue to follow the patient during this hospital stay. ZHOU SINGLETARY OMS-3 Mar 28, 2019 10:06 JN CHARLTON MD Mar 28, 2019 15:53
[2019-03-28] MEDS ORDERED: SENN-52 PO (11:50)
[2019-03-28] MEDS ORDERED: SLF 3 ML SYR IV PRN (12:15)
[2019-03-28] MEDS: SLF 3 ML SYR IV SCH ×2 (13:36→22:36)
[2019-03-28 14:37] LABS: BLOOD UREA NITROGEN 5 MG/DL (7-18); CALCIUM LEVEL 8.2 MG/DL (8.5-10.1); CARBON DIOXIDE LEVEL 28 MEQ/L (21-32); CHLORIDE LEVEL 104 MEQ/L (98-107); GLOMERULAR FILTRATION RATE > 60.0 (>60); GLUCOSE, FASTING 153 MG/DL (70-100); MAGNESIUM LEVEL 2.5 MG/DL (1.8-2.4); POTASSIUM SERUM 3.6 MEQ/L (3.5-5.1); SODIUM LEVEL 140 MEQ/L (136-145)
[2019-03-29] MEDS: NORCO, ANEXSIA 5/325MG TABLET (HYDROcodone/ACETAMINOPHEN) PO PRN ×2 (03:57→11:01)
[2019-03-29 04:00] VITALS: BP 115/66
[2019-03-29 04:20] LABS: BASO # 0.1 10^3/uL (0.0-0.2); BASO % 0.5 % (0.0-1.0); EOS % 0.1 % (0.0-3.0); HEMATOCRIT 42.6 % (36.0-47.0); HEMOGLOBIN 14.9 g/dl (12.0-15.5); LYMPH # 1.3 10^3/uL (1.5-4.5); LYMPH % 7.9 % (24.0-44.0); MEAN CORPUSCULAR HEMOGLOBIN 33.6 pg (27.0-33.0); MEAN CORPUSCULAR VOLUME 95.9 fl (80.0-96.0); MONO # 1.1 10^3/uL (0.0-0.8); MONO % 6.7 % (0.0-5.0); NEUTROPHILS # 14.1 10^3/uL (1.8-7.7); NEUTROPHILS % 84.3 % (36.0-66.0); RED BLOOD COUNT 4.44 10^6/uL (4.00-5.40); WHITE BLOOD COUNT 16.7 10^3/uL (4.0-10.0)
[2019-03-29 04:21] LABS: PLATELET COUNT, AUTOMATED 99 10^3/uL (150-450)
[2019-03-29 04:40] LABS: ALBUMIN 2.7 GM/DL (3.2-5.2); ALT/SGPT 31 U/L (12-78); BILIRUBIN,TOTAL 0.9 MG/DL (0.2-1.0); BLOOD UREA NITROGEN 6 MG/DL (7-18); CALCIUM LEVEL 8.7 MG/DL (8.5-10.1); CARBON DIOXIDE LEVEL 33 MEQ/L (21-32); CHLORIDE LEVEL 98 MEQ/L (98-107); CREATININE FOR GFR 0.61 MG/DL (0.55-1.30); GLOMERULAR FILTRATION RATE > 60.0 (>60); GLUCOSE, FASTING 137 MG/DL (70-100); MAGNESIUM LEVEL 2.3 MG/DL (1.8-2.4); POTASSIUM SERUM 3.2 MEQ/L (3.5-5.1); SODIUM LEVEL 137 MEQ/L (136-145); TOTAL PROTEIN 7.6 GM/DL (6.4-8.2)
[2019-03-29] MEDS: SLF 3 ML SYR IV SCH (05:19)
[2019-03-29] MEDS: HEPARIN SOD (PORCINE) 5000 UNITS/ML VIAL SC SCH (05:19)
[2019-03-29] MEDS ORDERED: POTASSIUM CHLORIDE 10 MEQ SR TABLET PO ONE (07:15)
[2019-03-29] MEDS: PRENATAL VITAMINS CHEWABLE TABLET PO SCH (07:57)
[2019-03-29] MEDS: SENOKOT S TAB PO SCH (07:58)
[2019-03-29] MEDS: PANTOPRAZOLE 40MG TAB (PROTONIX) PO SCH (07:58)
[2019-03-29] MEDS: DOCUSATE SODIUM 100 MG CAP PO SCH (07:58)
[2019-03-29 08:00] VITALS: BP 126/90
[2019-03-29] MEDS ORDERED: ISOVUE-370 76% 100ML VIAL (Q9967) As Ordered ONE (08:02)
--- NOTE | 2019-03-29 08:50 | REP ---
Clinical: Pancreatitis. Comparison: 03/25/2019. Technique: Axial contrast enhanced images from the lung bases to the pubic symphysis using 100 ml Isovue 370 intravenous contrast material with coronal and sagittal re-formations. Findings: The pancreas is diffusely edematous and demonstrates moderate amount of peripancreatic inflammatory stranding and fluid which is considerably decreased when compared to prior examination. A small amount of fluid extends into the pelvis. No drainable collection/abscess or pseudocyst. Mild fatty infiltration to the liver suggested. Spleen, distended gallbladder, bilateral adrenal glands and kidneys are normal. The enteric system is without obstruction or acute inflammatory process. Pelvis demonstrates partially collapsed normal bladder and age-appropriate uterus/adnexa. No free air. No adenopathy. Vasculature normal. Musculoskeletal structures intact. Impression: Improving pancreatitis. Electronically Signed by Fam Hui MD 03/29/2019 08:41 A
[2019-03-29] MEDS ORDERED: HYDR-4571 PO (10:09)
--- NOTE | 2019-03-29 11:05 | DS.PDOC ---
Discharge Summary General Date of Admission Mar 26, 2019 at 01:56 Date of Discharge March 29, 2019 Attending Physician: JN CHARLTON MD Discharge Summary PROCEDURES PERFORMED DURING STAY: None ADMITTING DIAGNOSES: 1. Acute pancreatitis with pancreatic mass DISCHARGE DIAGNOSES: 1. Acute pancreatitis 2. Pancreatic lesion 3. Hypokalemia 4. Transaminitis 5. ETOH abuse 6. Thrombocytopenia COMPLICATIONS/CHIEF COMPLAINT: Nausea, vomiting, back pain HISTORY OF PRESENT ILLNESS / HOSPITAL COURSE: While in the ER she had an Abdomen/pelvis CT scan that showed acute pancreatitis and an ovoid hyperdense lesion abutting the pancreatic tail. She received IV fluids, IV pain medication, and was placed on a NPO diet. On her admission she was also noted to have transaminitis and leukocytosis. Patient has a history of ETOH abuse and was placed on CIWA protocol; fluids and electrolytes were replaced with a banana bag. Abdominal MRI and Liver/Spleen scan NM imaging was ordered. The conclusions are as follows: 1) the lesion is not an accessory spleen 2) Malignancy cannot be ruled out at this time. The patient was able to tolerate an advanced diet well over the course of her stay and was eating solid food before discharge. An abdominal CT scan on 03/29/19 exhibited improving pancreatitis without any abscess collection. Mrs. León continued to be afebrile over the course of her stay. It is highly recommended that she follow up with her PCP, Dr. Hernandez, as soon as she returns from her family vacation to [place] on 04/14/19. DISCHARGE MEDICATIONS: Please see below. ALLERGIES: Please see below. PHYSICAL EXAMINATION ON DISCHARGE: VITAL SIGNS: Please see below. GENERAL: 33 year old well nourished female lying in bed eating breakfast. She was alert and in a pleasant mood HEENT: NC AT, mucous membranes moist CARDIOVASCULAR: regular rate and rhythm, normal S1S2, no murmurs noted. RESPIRATORY: Clear to auscultation bilaterally ABDOMINAL: soft, normal bowel sounds, abdomen appears minimally distended today, tender to palpation in left upper quadrants. Right CVA tenderness, no suprapubic tenderness to palpation. EXTREMITIES: No edema, cyanosis, or rash noted. SKIN: Negative for [place], [place], or Dai signs NEUROLOGICAL: Alert and oriented x3, no focal deficits PSYCHOLOGICAL: normal affect, history of alcohol abuse. LABORATORY DATA: Please see below. IMAGIN. Abdomen/pelvis CT 03/25/19: 1. Acute pancreatitis, as described above. Correlate with serum amylase and lipase levels. No drainable fluid collection. No necrosis or hemorrhage. 2. 1.6 x 1.5 cm ovoid hyperdense lesion abutting the pancreatic tail. Malignancy cannot be excluded. Suggest MRI upon resolution of the patient's acute clinical issues. 2. Abdominal US 03/26/19: 1. Visualized pancreas is edematous. Consistent with known pancreatitis. 2. Fatty infiltration of the liver. 3. Trace free fluid in the right upper quadrant. 3. Abdominal MRI 03/26/19: 1. Severe peripancreatic fluid collections. Consistent with acute pancreatitis. 2. No pancreatic ductal dilatation. 3. Circumscribed exophytic solid lesion in the tail of the pancreas. Differential diagnosis includes but not limited to exophytic pancreatic cancer versus solid pseudopapillary tumor of pancreas. Endocrine tumor is less likely. Recommend routine followup with tissue correlation. 4. Liver/Spleen scan NM 03/27/19: Mild colloid shift. Borderline liver size. The nodule seen at the tail of the pancreas does not appear to take up sulfur colloid. Therefore, this does not appear to be an accessory splenule. 5. Abdominal CT 03/29/19: Improving pancreatitis. PROGNOSIS: Good ACTIVITY: As tolerated DIET: Regular diet DISPOSITION: Patient is being discharged home DISCHARGE INSTRUCTIONS: 1. F.u. with pcp in 2-3 weeks as soon as you return from [place] 2. F.u with pcp for follow up ct abdomen of lesion on pancres and discuss if Fine needle aspiration (FNA) is needed based on repeat imaging. 3. Check CBC in 7-10 days, script provided, we will cc: [facility] results 3. continue to stay hydrated 4. abstain from drinking alcohol. 5. if symptoms return or worsen, please return to the ER. DISCHARGE CONDITION: Stable TIME SPENT ON DISCHARGE: Greater than 35 minutes. Vital Signs/I&Os Vital Signs Date Time Temp Pulse Resp B/P (MAP) Pulse Ox O2 Delivery O2 Flow Rate FiO2 03/29/19 08:00 97.0 90 18 126/90 (102) 99 03/26/19 13:36 Room Air I&O- Last 24 Hours up to 6 AM 03/29/19 06:00 Intake Total 1680 ml Output Total 1750 ml Balance -70 ml Laboratory Data Labs 24H Laboratory Tests 2 03/28/19 11:55: Anion Gap 8, Glomerular Filtration Rate > 60.0, Blood Urea Nitrogen 5L, Creatinine 0.50L, Sodium Level 140, Potassium Level 3.6#, Chloride Level 104, Carbon Dioxide Level 28, Calcium Level 8.2L, Magnesium Level 2.5H 03/29/19 03:51: Anion Gap 6L, Glomerular Filtration Rate > 60.0, Blood Urea Nitrogen 6L, Creat inine 0.61, Sodium Level 137, Potassium Level 3.2L, Chloride Level 98, Carbon Dioxide Level 33H, Calcium Level 8.7, Magnesium Level 2.3, Immature Granulocyte % (Auto) 0.5, White Blood Count 16.7H, Red Blood Count 4.44, Hemoglobin 14.9, Hematocrit 42.6, Mean Corpuscular Volume 95.9, Mean Corpuscular Hemoglobin 33.6H, Mean Corpuscular Hemoglobin Concent 35.0, Red Cell Distribution Width 13.2, Platelet Count 99L, Neutrophils (%) (Auto) 84.3H, Lymphocytes (%) (Auto) 7.9L, Monocytes (%) (Auto) 6.7H, Eosinophils (%) (Auto) 0.1, Basophils (%) (Auto) 0.5, Neutrophils # (Auto) 14.1H, Lymphocytes # (Auto) 1.3L, Monocytes # (Auto) 1.1H, Eosinophils # (Auto) 0.0, Basophils # (Auto) 0.1, Nucleated Red Bl ood Cells % (auto) 0.0, Immature Platelet Fraction 15.3H, Aspartate Amino Transf (AST/SGOT) 24, Alanine Aminotransferase (ALT/SGPT) 31, Alkaline Phosphatase 92, Total Bilirubin 0.9, Total Protein 7.6, Albumin 2.7L, Albumin/Globulin Ratio 0.55L CBC/BMP Laboratory Tests 03/28/19 11:55 Calcium Level 8.2 L 03/29/19 03:51 Calcium Level 8.7, Red Blood Count 4.44, Mean Corpuscular Volume 95.9, Mean Corpuscular Hemoglobin 33.6 H, Mean Corpuscular Hemoglobin Concent 35.0, Red Cell Distribution Width 13.2, Neutrophils (%) (Auto) 84.3 H, Lymphocytes (%) (Auto) 7.9 L, Monocytes (%) (Auto) 6.7 H, Eosinophils (%) (Auto) 0.1, Basophils (%) (Auto) 0.5, Neutrophils # (Auto) 14.1 H, Lymphocytes # (Auto) 1.3 L, Monocytes # (Auto) 1.1 H, Eosinophils # (Auto) 0.0, Basophils # (Auto) 0.1, Aspartate Amino Transf (AST/SGOT) 24, Alanine Aminotransferase (ALT/SGPT) 31, A lkaline Phosphatase 92, Total Bilirubin 0.9, Total Protein 7.6, Albumin 2.7 L Microbiology Microbiology 03/25/19 Urine Culture - Final, Complete Discharge Medications Scheduled Eep675/Iron Fum/Folic/Docusate ( 19 Tablet) 1 Tab Tab, 1 TAB PO DAILY, (Reported) Sennosides/Docusate Sodium (Senna Plus Tablet) 1 Each Tablet, 1 TAB PO BID Scheduled PRN Hydrocodone/Acetaminophen (Hydrocodone-Acetamin 5-325 mg) 1 Each Tablet, 2 TAB PO QHS PRN for SEVERE PAIN (PS 8-10) Allergies Coded Allergies: No Known Allergies (Unverified , 07/19/17) GME ATTESTATION GME ATTESTATION My faculty preceptor for this patient encounter was physically present during the encounter and was fully available. All aspects of the patient interview, examination, medical decision making process, and medical care plan development were reviewed and approved by the faculty preceptor. The faculty preceptor is aware and concurs with the plan as stated in the body of this note and will attest to such by his/her cosignature. ATTENDING NOTE I, Jn Charlton, have independently examined this patient and performed my own physical exam, as well as reviewed the documentation and edited where necessary. I have discussed in detail with the resident / student the findings and plan of treatment as documented by the resident / student and edited their note. I agree with their findings and treatment plan and have edited their documentation. I will continue to follow the patient during this hospital stay. Time spent on discharge - 35 minutes ZHOU S-3 Mar 29, 2019 11:05 WAYNE MUNOZ DO Mar 29, 2019 14:58 JN CHARLTON MD Mar 29, 2019 15:13
== END 2019-03-29 12:20 | disposition home or self-care (01) | DRG 440 ==
LOC: M ED 17:52 → M ED INP 03-26 01:56 → M PCU 03-26 15:17
PROVIDERS: ADMIT Internal Medicine; ATTEND Internal Medicine
DX: K85.20 Alcohol induced acute pancreatitis without necrosis or infection (principal); K86.89 Other specified diseases of pancreas; F10.10 Alcohol abuse, uncomplicated; E87.6 Hypokalemia; D69.6 Thrombocytopenia, unspecified

== ENCOUNTER 2019-04-30 10:43 | Inpatient (IN) | payer OTHER ==
[~2019-04-30] VITALS: Ht 160 cm; Wt 48.9 kg
[~2019-04-30 10:43] MED LIST changes: +HYDR-4571 PO; +SENN-52 PO
[2019-04-30 12:41] LABS: BASO # 0.1 10^3/uL (0.0-0.2); BASO % 0.6 % (0.0-1.0); HEMOGLOBIN 16.5 g/dl (12.0-15.5); LYMPH # 0.5 10^3/uL (1.5-5.0); LYMPH % 2.7 % (24.0-44.0); MEAN CORPUSCULAR HEMOGLOBIN 33.1 pg (27.0-33.0); MEAN CORPUSCULAR HGB CONC 31.7 g/dl (32.0-36.5); MEAN CORPUSCULAR VOLUME 104.2 fl (80.0-96.0); MONO % 5.4 % (0.0-5.0); NEUTROPHILS # 16.1 10^3/uL (1.5-8.5); NEUTROPHILS % 90.6 % (36.0-66.0); PLATELET COUNT, AUTOMATED 195 10^3/uL (150-450); RED BLOOD COUNT 4.99 10^6/uL (4.00-5.40); WHITE BLOOD COUNT 17.8 10^3/uL (4.0-10.0)
[2019-04-30] MEDS ORDERED: NS 1,000 ML IV ONE ×3 (13:00→17:45)
[2019-04-30] MEDS ORDERED: ONDANSETRON 4MG/2ML VIAL (J2405) IV ONE (13:00)
[2019-04-30 13:07] LABS: ALBUMIN 4.8 GM/DL (3.2-5.2); ALT/SGPT 63 U/L (12-78); BILIRUBIN,DIRECT 0.3 MG/DL (0.0-0.2); BILIRUBIN,TOTAL 1.2 MG/DL (0.2-1.0); BLOOD UREA NITROGEN 12 MG/DL (7-18); CALCIUM LEVEL 9.2 MG/DL (8.5-10.1); CARBON DIOXIDE LEVEL 6 MEQ/L (21-32); CHLORIDE LEVEL 100 MEQ/L (98-107); CREATININE FOR GFR 1.31 MG/DL (0.55-1.30); GLOMERULAR FILTRATION RATE 49.5 (>60); GLUCOSE, FASTING 299 MG/DL (70-100); LIPASE 278 U/L (73-393); POTASSIUM SERUM 5.4 MEQ/L (3.5-5.1); SODIUM LEVEL 133 MEQ/L (136-145); TOTAL PROTEIN 9.9 GM/DL (6.4-8.2)
[2019-04-30 13:08] LABS: HCG, SERUM QUALITATIVE NEGATIVE (NEGATIVE)
[2019-04-30] MEDS ORDERED: METOCLOPRAMIDE INJ 10MG/2ML VIAL (J2765) IV ONE (13:30)
[2019-04-30 13:48] LABS: CK-MB VALUE MASS 1.5 NG/ML (<3.6); CPK CREATINE PHOSPHOKINASE 74 U/L (26-192); MB/CK RELATIVE INDEX 2.03 (< OR =4); TROPONIN I < 0.02 NG/ML (< 0.10)
[2019-04-30 13:52] LABS: VENOUS BASE EXCESS -26.6 (-2.0-2.0); VENOUS HCO3 4.3 MEQ/L (23.0-27.0); VENOUS O2 SATURATION 71.5 % (60.0-80.0); VENOUS PARTIAL PRESSURE CO2 20.3 mmHg (38.0-50.0); VENOUS PARTIAL PRESSURE O2 46.8 mmHg (30.0-50.0); VENOUS PH 6.947 UNITS (7.330-7.430); VENOUS STANDARD HCO3 6.8 MEQ/L
[2019-04-30] MEDS ORDERED: ISOVUE-370 76% 100ML VIAL (Q9967) As Ordered ONE (13:53)
[2019-04-30] MEDS: MORPHINE 4 MG/ML 1ML VIAL/SYRINGE (J2270) IV PRN ×7 (14:02→21:10)
[2019-04-30] MEDS ORDERED: VANCOMYCIN HCL 1,000 MG, VIAL MATE ADAPTER 1 EACH in D5W 250 ML IV ONE (14:30)
--- NOTE | 2019-04-30 14:44 | REP ---
Clinical: Acute chest pain and shortness of breath . Technique: Axial contrast enhanced images from the thoracic inlet to the upper abdomen using 100 ml Isovue 370 intravenous contrast material with multiplanar re-formations. Findings: Satisfactory enhancement of the pulmonary vasculature is achieved and no filling defects are identified to suggest pulmonary embolus. Further evaluation of the mediastinum demonstrates normal thoracic aorta, heart and pericardium. The bilateral lung santiago are well aerated and clear without consolidation pleural effusion or pneumothorax. Tracheobronchial tree is patent. No nodule or mass lesion is identified. No adenopathy noted. Surrounding musculoskeletal structures intact Impression: No evidence for pulmonary embolus. No acute mediastinal or pleural parenchymal process. Electronically Signed by Fam Hui MD 04/30/2019 02:36 P
[2019-04-30] MEDS ORDERED: PIPERACILLIN/TAZOBACTAM SOD 3.375 GM in D5W MINI-BAG PLUS 50 ML IV ONE (14:45)
--- NOTE | 2019-04-30 14:51 | REP ---
Clinical: Upper abdominal pain with history of pancreatitis. Technique: Axial contrast enhanced images from the lung bases to the pubic symphysis with coronal and sagittal re-formations using oral (per protocol) and 100 ml Isovue 370 intravenous. Comparison: 03/29/2019. Findings: There appears to be mucosal thickening to the distal esophagus extending to the gastroesophageal junction which may represent esophagitis and should be correlated clinically. Diffuse fatty infiltration to the liver noted without focal hepatic lesion identified. Spleen, bilateral adrenal glands and kidneys are normal. The gallbladder is moderately distended but without evidence for acute cholecystitis. The pancreas is relatively normal in appearance although a 1.5 cm enhancing rounded lesion at the tail of the pancreas is again suggested and unchanged. Mild mucosal thickening of the ascending through transverse colon is nonspecific but infectious/inflammatory colitis cannot be excluded. Remainder of the small large bowel is unremarkable. Pelvis demonstrates normal bladder and age-appropriate uterus/adnexa. No pelvic fluid or ascites. No adenopathy. No free air. Abdominal aorta and vasculature appears normal. Musculoskeletal structures are intact. Impression: 1. Mild mucosal thickening to the distal esophagus raising the possibility of esophagitis. 2. Hepatic steatosis without focal hepatic lesion. 3. Mild mucosal thickening to the ascending and transverse colon raising the possibility of infectious/inflammatory colitis and correlation is recommended. 4. Stable solid 1.5 cm enhancing ovoid lesion at the tail of the pancreas previously evaluated on MRI warrants continued evaluation. Electronically Signed by Fam Hui MD 04/30/2019 02:42 P
[2019-04-30 15:05] LABS: ETHYL ALCOHOL (ETHANOL) < 0.003 % (0.000-0.010)
[2019-04-30 15:58] LABS: AMPHETAMINES LEVEL URINE NEGATIVE (NEGATIVE); BARBITURATES URINE NEGATIVE (NEGATIVE); BENZODIAZEPINES URINE NEGATIVE (NEGATIVE); CANNABINOIDS URINE NEGATIVE (NEGATIVE); COCAINE METABOLITE URINE NEGATIVE (NEGATIVE); METHADONE URINE NEGATIVE (NEGATIVE); OPIATES URINE NEGATIVE (NEGATIVE); PHENCYCLIDINE URINE NEGATIVE (NEGATIVE)
--- NOTE | 2019-04-30 16:08 | REP ---
Clinical: Epigastric pain. Technique: Real time escobar scale ultrasound examination using curved array transducer. Findings: Diffuse fatty infiltration to the liver without focal hepatic lesion identified. Pancreas is incompletely evaluated but visualized portions appear normal. Gallbladder is without gallstones, wall thickening, or pericholecystic fluid. No biliary ductal dilatation is appreciated and the common bile duct measures 4.4 mm diameter. The right kidney is normal in reniform shape without hydronephrosis and measures 10.2 x 5.0 x 3.5 cm. No ascites. Impression: Hepatic steatosis. Electronically Signed by Fam Hui MD 04/30/2019 04:00 P
[2019-04-30] MEDS ORDERED: INSULIN HUMAN REGULAR 100 UNITS in NS 99 ML IV SCH (17:43)
[2019-04-30] MEDS ORDERED: NS 1,000 ML IV SCH ×2 (17:43→18:15)
[2019-04-30] MEDS ORDERED: HumaLOG INSULIN (NovoLOG) PER UNIT IV STA (18:12)
[2019-04-30 18:38] LABS: VENOUS BASE EXCESS -24.1 (-2.0-2.0); VENOUS HCO3 5.6 MEQ/L (23.0-27.0); VENOUS O2 SATURATION 98.6 % (60.0-80.0); VENOUS PARTIAL PRESSURE CO2 22.4 mmHg (38.0-50.0); VENOUS PARTIAL PRESSURE O2 136.2 mmHg (30.0-50.0); VENOUS PH 7.012 UNITS (7.330-7.430); VENOUS STANDARD HCO3 8.4 MEQ/L; VENOUS TOTAL CO2 6.2 MEQ/L (24.0-28.0)
--- NOTE | 2019-04-30 18:55 | HPEPDOC ---
General Date of Admission 04/30/19 Date of Service: Apr 30, 2019 Attending Physician: SUSAN SOTELO DO Chief Complaint The patient is a 34-year-old female admitted with a reason for visit of Ad burkett Source: Patient Exam Limitations: No limitations Timing/Duration: Day(s) (3-4 days) Severity: Severe Associated Symptoms: Loss of appetite, Nausea, Vomiting History of Present Illness Patient is 34 years old female without significant past medical history present ed to the hospital with nausea, vomiting, abdominal pain. Patient stated that around 3-4 days ago she started feeling nausea, vomited multiple times almost every hour, had epigastric abdominal pain. Today his symptoms became worse and she decided to come to the hospital. Of note, patient stated when she was 19 years old she was found to have hyperglycemia however she has never been diagnosed with diabetes, did not take any medications for diabetes. Also patient recently had pancreatitis and she was admitted in the hospital.. In emergency room patient was found to have a glucose level of 299, lactic acid of 3.4, potassium level 5.4, bicarbonate 6, anion gap of 27, VBG pH 6.8, urine positive for ketones Home Medications Scheduled Nfd147/Iron Fum/Folic/Docusate ( 19 Tablet) 1 Tab Tab, 1 TAB PO DAILY, (Reported) Allergies Coded Allergies: No Known Allergies (Unverified , 07/19/17) Past Medical History Medical History Patient stated that she is healthy, however when she was in age 19 she was diagnosed with hyperglycemia, she does not remember about diagnosis of diabetes. She didn't take any medications after that. Family History Father has COPD grand mother has diabetes Social History * Smoker: Denies Drugs: denies Psychosocial History: No pertinent psych hx A-FIB/CHADSVASC A-FIB History Current/History of A-Fib/PAF?: No Current PO Anticoag Therapy: No Review of Systems Constitutional: Reports: Malaise, Fatigue, Weight Loss; Denies: Chills Eyes: Denies: Eyelid inflammation ENT: Denies: Head Aches, Dysphagia Skin: Denies: Lesions, Jaundice Pulmonary: Denies: Dyspnea Cardiovascular: Reports: Palpitations; Denies: Chest Pain Gastrointestinal: Reports: Nausea, Vomiting, Abdominal Pain Genitourinary: Reports: Dysuria, Frequency Hematologic: Denies: Bruising Endocrine: Reports: Polydipsia, Polyuria Musculoskeletal: Denies: Neck Pain Neurological: Denies: Weakness Psych: Reports: Mood Normal Physical Examination General Exam: Positive: Alert, Cooperative Eye Exam: Positive: PERRLA, EOMI ENT Exam: Positive: Atraumatic Neck Exam: Positive: Supple; Negative: JVD Chest Exam: Positive: Clear to auscultation Heart Exam: Positive: Tachycardic Telemetry: Positive: No significant arrhythmia Abdomen Exam: Positive: BS Hypoactive Extremity Exam: Negative: Clubbing, Cyanosis Skin Exam: Negative: Rash Neuro Exam: Positive: Strength at 5/5 X4 ext, Cranial Nerves 3-12 NL Psych Exam: Positive: Mental status NL Vital Signs Vital Signs Date Time Temp Pulse Resp B/P (MAP) Pulse Ox O2 Delivery O2 Flow Rate FiO2 04/30/19 16:41 20 04/30/19 16:34 113 100 Room Air 04/30/19 16:20 117/75 (89) 04/30/19 14:31 97.8 Laboratory Data Labs 24H Laboratory Tests 2 04/30/19 11:17: Immature Granulocyte % (Auto) 0.7, White Blood Count 17.8H, Red Blood Count 4.99, Hemoglobin 16.5H, Hematocrit 52.0H, Mean Corpuscular Volume 104.2H, Mean Corpuscular Hemoglobin 33.1H, Mean Corpuscular Hemoglobin Concent 31.7L, Red Cell Distribution Width 13.2, Platelet Count 195, Neutrophils (%) (Auto) 90.6H, Lymphocytes (%) (Auto) 2.7L, Monocytes (%) (Auto) 5.4H, Eosinophils (%) (Auto) 0.0, Basophils (%) (Auto) 0.6, Neutrophils # (Auto) 16.1H, Lymphocytes # (Auto) 0.5L, Monocytes # (Auto) 1.0H, Eosinophils # (Auto) 0.0, Basophils # (Auto) 0.1, Nucleated Red Blood Cells % (auto) 0.0, Anion Gap 27H, Glomerular Filtration Rate 49.5L, Calcium Level 9.2, Aspartate Amino Transf (AST/SGOT) 96H, Alanine Aminotransferase (ALT/SGPT) 63, Alkaline Phosphatase 131H, Total Bilirubin 1.2H, Direct Bilirubin 0.3H, Total Creatine Kinase 74, Creatine Kinase MB 1.5, Creatine Kinase MB Relative Index 2.03, Troponin I < 0.02, Total Protein 9.9H, Albumin 4.8, Albumin/Globulin Ratio 0.94L, Lipase 278, Human Chorionic Gonadotropin, Qual NEGATIVE, Ethyl Alcohol Level < 0.003 04/30/19 11:55: Urine Color YELLOW, Urine Appearance HAZY, Urine pH 5.0, Urine Specific [place] 1.022, Urine Protein 2+H, Urine Glucose (UA) 3+H, Urine Ketones 2+H, Urine Blood 2+H, Urine Nitrite NEGATIVE, Urine Bilirubin NEGATIVE, Urine Urobilinogen 0.2, Urine Leukocyte Esterase NEGATIVE, Urine WBC (Auto) 4H, Urine RBC (Auto) 6H, Urine Hyaline Casts (Auto) 3, Urine Bacteria (Auto) NEGATIVE, Urine Squamous Ep ithelial Cells 1, Urine Amorphous Sediment SMALLH, Urine Granular Casts (Auto) 6, Urine Mucus (Auto) SMALL, Urine Sperm (Auto) , Urine Amphetamines Screen NEGATIVE, Urine Benzodiazepines Screen NEGATIVE, Urine Opiates Screen NEGATIVE, Urine Methadone Screen NEGATIVE, Urine Barbiturates Screen NEGATIVE, Urine Phencyclidine Screen NEGATIVE, Urine Cocaine Metabolite Screen NEGATIVE, Urine Cannabinoids Screen NEGATIVE 04/30/19 13:25: Blood Gas Bicarbonate Standard 6.8, Venous Blood pH 6.947L, Venous Blood Partial Pressure CO2 20.3L, Venous Blood Partial Pressure O2 46.8, Venous Blood Total Carbon Dioxide 5.0L, Venous Blood HCO3 4.3L, Venous Blood Oxygen Saturation 71.5, Venous Blood Base Excess -26.6L, Lactic Acid Level 3.4*H CBC/BMP Laboratory Tests 04/30/19 11:17 Red Blood Count 4.99, Mean Corpuscular Volume 104.2 H, Mean Corpuscular Hemoglobin 33.1 H, Mean Corpuscular Hemoglobin Concent 31.7 L, Red Cell Distribution Width 13.2, Neutrophils (%) (Auto) 90.6 H, Lymphocytes (%) (Auto) 2.7 L, Monocytes (%) (Auto) 5.4 H, Eosinophils (%) (Auto) 0.0, Basophils (%) (Auto) 0.6, Neutrophils # (Auto) 16.1 H, Lymphocytes # (Auto) 0.5 L, Monocytes # (Auto) 1.0 H, Eosinophils # (Auto) 0.0, Basophils # (Auto) 0.1 Microbiology Microbiology 04/30/19 Blood Culture, Received Pending 04/30/19 Blood Culture, Received Pending Assessment/Plan Patient is 34 years old female without significant past medical history presented to the hospital with nausea, vomiting, abdominal pain. Patient stated that around 3-4 days ago she started feeling nausea, vomited multiple times almost every hour, had epigastric abdominal pain. Today his symptoms became worse and she decided to come to the hospital. Of note, patient stated when she was 19 years old she was found to have hyperglycemia however she has never been diagnosed with diabetes, did not take any medications for diabetes. In emergency room patient was found to have a glucose level of 299, lactic acid of 3.4, potassium level 5.4, bicarbonate 6, anion gap of 27. Treatment for DKA initiated. Problems (1) DKA (diabetic ketoacidoses) Problem Text: Patient developed DKA We will check anti [place], anti -islet, anti-insulin antibody Patient recently has been treated for pancreatitis. Differential diagnosis includes secondary development of diabetes due to previous pancreatitis or SAY or SONJA 10 units of insulin IV Glucose level every hour BMP every 2 hours, potassium as needed Insulin drip, when serum glucose reaches 200 changed normal saline to 5% dextrose with 0.45 % NaCl at 150-250 mL/h Aggressive hydration When serum glucose reaches 200 mg/dc reduce Regular Insulin infusion to 0.02 units/kg , keep serum glucose between 150-200 mg /dl Continue insulin drip until AG close and glucose level <200. I gave sign out to night team to watch closely. (2) Metabolic acidosis Status: Acute Problem Text: Secondary to DKA Monitor lactic acid Monitor ABG ABG STAT (3) Dehydration Status: Acute Problem Text: Aggressive hydration Monitor BMP Plan / VTE VTE Prophylaxis Ordered?: Yes Plan IVF: Initiate SUSAN SOTELO DO Apr 30, 2019 18:55
[2019-04-30 18:59] LABS: BLOOD UREA NITROGEN 11 MG/DL (7-18); CALCIUM LEVEL 7.9 MG/DL (8.5-10.1); CARBON DIOXIDE LEVEL 7 MEQ/L (21-32); CHLORIDE LEVEL 113 MEQ/L (98-107); CREATININE FOR GFR 1.04 MG/DL (0.55-1.30); GLOMERULAR FILTRATION RATE > 60.0 (>60); GLUCOSE, FASTING 172 MG/DL (70-100); POTASSIUM SERUM 5.2 MEQ/L (3.5-5.1); SODIUM LEVEL 139 MEQ/L (136-145)
[2019-04-30 19:22] LABS: HEMOGLOBIN A1c 6.5 %
[2019-04-30] MEDS ORDERED: D5W/0.45% SODIUM CHLORIDE 1,000 ML IV SCH (19:45)
[2019-04-30] MEDS: D5W/0.45% SODIUM CHLORIDE 1,000 ML IV SCH (19:49)
[2019-04-30] MEDS ORDERED: ONDANSETRON 4MG/2ML VIAL (J2405) IV PRN (20:30)
[2019-04-30 20:37] VITALS: BP 116/81
[2019-04-30 20:43] LABS: BLOOD UREA NITROGEN 10 MG/DL (7-18); CARBON DIOXIDE LEVEL 5 MEQ/L (21-32); CHLORIDE LEVEL 114 MEQ/L (98-107); CREATININE FOR GFR 1.02 MG/DL (0.55-1.30); GLOMERULAR FILTRATION RATE > 60.0 (>60); GLUCOSE, FASTING 157 MG/DL (70-100); POTASSIUM SERUM 4.8 MEQ/L (3.5-5.1); SODIUM LEVEL 138 MEQ/L (136-145)
[2019-04-30 21:00] VITALS: BP 117/79; O2SAT 99
[2019-04-30] MEDS: INSULIN IV RATE CHANGE DOCUMENTATION ML/HR XX SCH ×2 (21:01→23:04)
[2019-04-30] MEDS: HEPARIN SOD (PORCINE) 5000 UNITS/ML VIAL SC SCH (21:08)
[2019-04-30 22:00] VITALS: BP 108/74; O2SAT 100
[2019-04-30 23:00] VITALS: BP 117/76; O2SAT 100
[2019-04-30] MEDS: HYDROMORPHONE HCL 0.5 MG/ 0.5 ML SYRINGE (J1170 PER 1) IV PRN (23:26)
[2019-05-01] VITALS (18 sets, daily range): BP systolic 94–126; BP diastolic 65–80; O2SAT 97–100
[2019-05-01 00:04] LABS: ACETAMINOPHEN LEVEL < 2.0 UG/ML (10.0-30.0); ACETONE/KETONE > 46.00 MG/DL (<2.81); BLOOD UREA NITROGEN 9 MG/DL (7-18); CALCIUM LEVEL 7.8 MG/DL (8.5-10.1); CARBON DIOXIDE LEVEL 9 MEQ/L (21-32); CHLORIDE LEVEL 113 MEQ/L (98-107); GLOMERULAR FILTRATION RATE > 60.0 (>60); GLUCOSE, FASTING 160 MG/DL (70-100); POTASSIUM SERUM 4.7 MEQ/L (3.5-5.1); SODIUM LEVEL 136 MEQ/L (136-145)
[2019-05-01] MEDS: INSULIN IV RATE CHANGE DOCUMENTATION ML/HR XX SCH ×11 (01:06→12:22)
[2019-05-01 01:35] LABS: BLOOD UREA NITROGEN 9 MG/DL (7-18); CALCIUM LEVEL 8.1 MG/DL (8.5-10.1); CARBON DIOXIDE LEVEL 11 MEQ/L (21-32); CHLORIDE LEVEL 115 MEQ/L (98-107); CREATININE FOR GFR 0.96 MG/DL (0.55-1.30); GLOMERULAR FILTRATION RATE > 60.0 (>60); GLUCOSE, FASTING 148 MG/DL (70-100); POTASSIUM SERUM 3.9 MEQ/L (3.5-5.1); SODIUM LEVEL 139 MEQ/L (136-145)
[2019-05-01] MEDS: D5W/0.45% SODIUM CHLORIDE 1,000 ML IV SCH ×2 (03:13→08:10)
[2019-05-01] MEDS ORDERED: CEPACOL LOZENGE PO PRN (03:30)
[2019-05-01] MEDS: ONDANSETRON 4MG/2ML VIAL (J2405) IV PRN ×2 (03:40→07:35)
[2019-05-01] MEDS: HYDROMORPHONE HCL 0.5 MG/ 0.5 ML SYRINGE (J1170 PER 1) IV PRN ×4 (03:42→22:26)
[2019-05-01 05:09] LABS: HEMATOCRIT 39.5 % (36.0-47.0); MEAN CORPUSCULAR HEMOGLOBIN 32.2 pg (27.0-33.0); MEAN CORPUSCULAR HGB CONC 32.4 g/dl (32.0-36.5); MEAN CORPUSCULAR VOLUME 99.5 fl (80.0-96.0); PLATELET COUNT, AUTOMATED 128 10^3/uL (150-450); RED BLOOD COUNT 3.97 10^6/uL (4.00-5.40); WHITE BLOOD COUNT 13.7 10^3/uL (4.0-10.0)
[2019-05-01 05:12] LABS: HEMOGLOBIN 12.8 g/dl (12.0-15.5)
[2019-05-01 05:42] LABS: ALBUMIN 3.4 GM/DL (3.2-5.2); ALT/SGPT 38 U/L (12-78); BILIRUBIN,TOTAL 0.9 MG/DL (0.2-1.0); BLOOD UREA NITROGEN 9 MG/DL (7-18); CALCIUM LEVEL 8.1 MG/DL (8.5-10.1); CARBON DIOXIDE LEVEL 13 MEQ/L (21-32); CHLORIDE LEVEL 114 MEQ/L (98-107); CREATININE FOR GFR 0.87 MG/DL (0.55-1.30); GLOMERULAR FILTRATION RATE > 60.0 (>60); GLUCOSE, FASTING 155 MG/DL (70-100); MAGNESIUM LEVEL 2.2 MG/DL (1.8-2.4); PHOSPHORUS LEVEL 1.1 MG/DL (2.5-4.9); POTASSIUM SERUM 3.7 MEQ/L (3.5-5.1); SODIUM LEVEL 138 MEQ/L (136-145); TOTAL PROTEIN 7.4 GM/DL (6.4-8.2)
[2019-05-01 06:18] LABS: ABG O2 SATURATION 97.9 % (95.0-99.0); ABG PARTIAL PRESSURE CO2 25.1 mmHg (35.0-45.0); ABG PARTIAL PRESSURE O2 95.5 mmHg (75.0-100.0); ABG STANDARD HCO3 12.5 MEQ/L (22.0-26.0); ABG TOTAL CO2 10.8 MEQ/L (22.0-29.0)
[2019-05-01 06:21] LABS: ABG pH (ARTERIAL) 7.218 UNITS (7.350-7.450)
[2019-05-01] MEDS ORDERED: SODIUM PHOSPHATE INJ 20 MMOL in D5W 250 ML IV ONE (07:00)
[2019-05-01] MEDS: HEPARIN SOD (PORCINE) 5000 UNITS/ML VIAL SC SCH ×2 (08:11→21:00)
[2019-05-01] MEDS ORDERED: INSULIN HUMAN REGULAR 100 UNITS in NS 99 ML IV SCH (09:00)
[2019-05-01 09:34] LABS: BLOOD UREA NITROGEN 7 MG/DL (7-18); CALCIUM LEVEL 7.5 MG/DL (8.5-10.1); CARBON DIOXIDE LEVEL 15 MEQ/L (21-32); CHLORIDE LEVEL 111 MEQ/L (98-107); CREATININE FOR GFR 0.85 MG/DL (0.55-1.30); GLOMERULAR FILTRATION RATE > 60.0 (>60); GLUCOSE, FASTING 158 MG/DL (70-100); POTASSIUM SERUM 3.4 MEQ/L (3.5-5.1); SODIUM LEVEL 137 MEQ/L (136-145)
[2019-05-01] MEDS ORDERED: SODIUM BICARBONATE 8.4% INJ 50 ML SYRINGE IV ONE (10:00)
[2019-05-01] MEDS: CIPROFLOXACIN 400 MG in APPROPRIATE DILUENT 1 EA IV SCH ×2 (10:09→21:30)
[2019-05-01] MEDS: metroNIDAZOLE 500 MG in APPROPRIATE DILUENT 1 EA IV SCH ×2 (11:23→18:35)
--- NOTE | 2019-05-01 11:54 | IPNPDOC ---
Subjective Date Seen The patient was seen on 05/01/19. Subjective Chief Complaint/HPI Patient is comfortable in no apparent distress. Offers no new complaints except left-sided abdominal pain General: Denies: ROS Unobtainable, Chills, Night Sweats, Fatigue, Malaise, Normal Appetite, Other Symptoms Constitutional: Denies: Chills, Fever, Malaise, Night Sweats, Weakness, Fatigue, Weight Loss, Lethargy, Other Eyes: Denies: Pain, Vision change, Conjunctivae inflammation, Eyelid inflammation, Redness, Other ENT: Denies: Head Aches, Ear Pain, Dysphagia, Sinus Congestion, Post Nasal Drip, Sore Throat, Epistaxis, Other Symptoms Skin: Denies: Rash, Lesions, Jaundice, Bruising, Itching, Dry, Breakdown, Nail Changes, Other Pulmonary: Denies: Dyspnea, Cough, Pleuritic Chest Pain, Other Symptoms Cardiovascular: Denies: Chest Pain, Palpitations, Orthopnea, Paroxysmal Noc. Dyspnea, Edema, Lt Headedness, Other Symptoms Gastrointestinal: Reports: Abdominal Pain Genitourinary: Denies: Dysuria, Frequency, Incontinence, Hematuria, Retention, Other Symptoms Musculoskeletal: Denies: Neck Pain, Back Pain, Shoulder Pain, Arm Pain, Hand Pain, Leg Pain, Foot Pain, Joint Pain, Muscle Pain, Spasms, Other Symptoms Neurological: Denies: Weakness, Numbness, Incoordination, Change in speech, Confusion, Seizures, Other Symptoms Objective Physical Examination General Exam: Positive: Alert, Cooperative Eye Exam: Positive: PERRLA, EOMI ENT Exam: Positive: Atraumatic Neck Exam: Positive: Supple; Negative: JVD Chest Exam: Positive: Clear to auscultation Heart Exam: Positive: Tachycardic Telemetry: Positive: No significant arrhythmia Abdomen Exam: Positive: BS Hypoactive, Tenderness (mild tenderness. Positive at the left lower quadrant) Extremity Exam: Negative: Clubbing, Cyanosis Skin Exam: Negative: Rash Neuro Exam: Positive: Strength at 5/5 X4 ext, Cranial Nerves 3-12 NL Psych Exam: Positive: Mental status NL Assessment /Plan Problems (1) DKA (diabetic ketoacidoses) Status: Acute Problem Text: (2) Metabolic acidosis Status: Acute Problem Text: (3) Dehydration Status: Acute Problem Text: (4) Colitis Status: Acute (5) Pancreatic lesion Status: Chronic Plan/VTE VTE Prophylaxis Ordered?: Yes Plan IVF: Initiate Despite patient's normal fingerstick blood sugar. She is is still acidotic with low bicarbonate levels Will continue D5 half-normal saline. Her 150 mL per hour Will continue insulin drip at 1 unit per hour at least 6 more hours Soda bicarbonate 50 mEq IV 1 Phosphate supplement given Potassium supplement ordered BMP and phosphate every 4 hours for 24 hours Once patient has normal pH and acidosis has completely resolved, then we'll start her on by mouth diet and will cover with subcutaneous insulin Patient has a history of lesion on the pancreatic tail for which outpatient workup was recommended on her last admission, which she never got followed up. CT abdomen and pelvis shows acute colitis of the ascending and transverse colon and on physical examination she does have tenderness mostly on the left side lower quadrant on deep palpation cause of her colitis could be infectious versus inflammatory. And since she had a leukocytosis which responded to Zosyn and Vanco. We'll restart patient on Cipro and Flagyl for acute bacterial colitis. We'll monitor patient's CBC in a.m. VS, I&O, 24H, [facility] Vital Signs/I&O Vital Signs Date Time Temp Pulse Resp B/P (MAP) Pulse Ox O2 Delivery O2 Flow Rate FiO2 05/01/19 11:22 18 100 05/01/19 09:00 95 118/78 (91) 05/01/19 08:00 98.6 05/01/19 04:00 Room Air I&O- Last 24 Hours up to 6 AM 05/01/19 06:00 Intake Total 3125 ml Output Total 850 ml Balance 2275 ml Laboratory Data 24H LABS Laboratory Tests 2 04/30/19 11:55: Urine Color YELLOW, Urine Appearance HAZY, Urine pH 5.0, Urine Specific [place] 1.022, Urine Protein 2+H, Urine Glucose (UA) 3+H, Urine Ketones 2+H, Urine Blood 2+H, Urine Nitrite NEGATIVE, Urine Bilirubin NEGATIVE, Urine Urobilinogen 0.2, Urine Leukocyte Esterase NEGATIVE, Urine WBC (Auto) 4H, Urine RBC (Auto) 6H, Urine Hyaline Casts (Auto) 3, Urine Bacteria (Auto) NEGATIVE, Urine Squamous Epithelial Cells 1, Urine Amorphous Sediment SMALLH, Urine Granular Casts (Auto) 6, Urine Mucus (Auto) SMALL, Urine Sperm (Auto) , Urine Amphetamines Screen NEGATIVE, Urine Benzodiazepines Screen NEGATIVE, Urine Opiates Screen NEGATIVE, Urine Methadone Screen NEGATIVE, Urine Barbiturates Screen NEGATIVE, Urine Phencyclidine Screen NEGATIVE, Urine Cocaine Metabolite Screen NEGATIVE, Urine Cannabinoids Screen NEGATIVE 04/30/19 13:25: Blood Gas Bicarbonate Standard 6.8, Venous Blood pH 6.947L, Venous Blood Partial Pressure CO2 20.3L, Venous Blood Partial Pressure O2 46.8, Venous Blood Total Carbon Dioxide 5.0L, Venous Blood HCO3 4.3L, Venous Blood Oxygen Saturation 71.5, Venous Blood Base Excess -26.6L, Lactic Acid Level 3.4*H 04/30/19 18:28: Blood Gas Bicarbonate Standard 8.4, Venous Blood pH 7.012L, Venous Blood Partial Pressure CO2 22.4L, Venous Blood Partial Pressure O2 136.2H, Venous Blood Total Carbon Dioxide 6.2L, Venous Blood HCO3 5.6L, Venous Blood Oxygen Saturation 98.6H, Venous Blood Base Excess -24.1L, Anion Gap 19H, Glomerular Filtration Rate > 60.0, Estimated Mean Plasma Glucose 140H, Hemoglobin A1c 6.5, Osmolality 307H, Blood Urea Nitrogen 11, Creatinine 1.04, Sodium Level 139, Potassium Level 5.2H, Chloride Level 113H, Carbon Dioxide Level 7L, Calcium Level 7.9L 04/30/19 18:29: Lactic Acid Followup at 4 Hours 1.4 04/30/19 18:52: Bedside Glucose (Misc Panel) 168H 04/30/19 20:09: Anion Gap 19H, Glomerular Filtration Rate > 60.0, Blood Urea Nitrogen 10, Creatinine 1.02, Sodium Level 138, Potassium Level 4.8, Chloride Level 114H, Carbon Dioxide Level 5L, Calcium Level 8.0L 04/30/19 20:38: Bedside Glucose (Misc Panel) 141H 04/30/19 22:07: Bedside Glucose (Misc Panel) 147H 04/30/19 23:00: Bedside Glucose (Misc Panel) 158H, Anion Gap 14, Glomerular Filtration Rate > 60.0, Blood Urea Nitrogen 9, Creatinine 1.00, Sodium Level 136, Potassium Level 4.7, Chloride Level 113H, Carbon Dioxide Level 9L, Calcium Level 7.8L, Salicylates Level 2.0L, Acetaminophen Level < 2.0L, B-Hydroxybutyrate > 46.00H 05/01/19 00:31: Bedside Glucose (Misc Panel) 163H 05/01/19 01:03: Bedside Glucose (Misc Panel) 144H, Anion Gap 13, Glomerular Filtration Rate > 60.0, Blood Urea Nitrogen 9, Creatinine 0.96, Sodium Level 139, Potassium Level 3.9, Chloride Level 115H, Carbon Dioxide Level 11L, Calcium Level 8.1L 05/01/19 02:06: Bedside Glucose (Misc Panel) 151H 05/01/19 03:10: Bedside Glucose (Misc Panel) 113H 05/01/19 03:49: Bedside Glucose (Misc Panel) 112H 05/01/19 04:51: Bedside Glucose (Misc Panel) 149H, Nucleated Red Blood Cells % (auto) 0.0, Anion Gap 11, Glomerular Filtration Rate > 60.0, Lactic Acid Level 0.6, Blood Urea Nitrogen 9, Creatinine 0.87, Sodium Level 138, Potassium Level 3.7, Chloride Level 114H, Carbon Dioxide Level 13L, Calcium Level 8.1L, Phosphorus Level 1.1L, Aspartate Amino Transf (AST/SGOT) 43H, Alanine Aminotransferase (ALT/SGPT) 38, Alkaline Phosphatase 85, Total Bilirubin 0.9, Total Protein 7.4#, Albumin 3.4#, Magnesium Level 2.2, Albumin/Globulin Ratio 0.85L, B-Hydroxybutyrate 40.10H 05/01/19 06:01: Blood Gas Bicarbonate Standard 12.5L, Arterial Blood pH 7.218*L, Arterial Blood Partial Pressure CO2 25.1L, Arterial Blood Partial Pressure O2 95.5, Arterial Blood Total CO2 10.8L, Arterial Blood HCO3 10.0L, Arterial Blood Base Excess - 16.0L, Arterial Blood Oxygen Saturation 97.9 05/01/19 06:06: Bedside Glucose (Misc Panel) 173H 05/01/19 07:22: Bedside Glucose (Misc Panel) 115H 05/01/19 08:20: Bedside Glucose (Misc Panel) 128H 05/01/19 09:02: Anion Gap 11, Glomerular Filtration Rate > 60.0, Blood Urea Nitrogen 7, Creatinine 0.85, Sodium Level 137, Potassium Level 3.4L, Chloride Level 111H, Carbon Dioxide Level 15L, Calcium Level 7.5L 05/01/19 09:04: Bedside Glucose (Misc Panel) 147H 05/01/19 10:12: Bedside Glucose (Misc Panel) 179H 05/01/19 11:03: Bedside Glucose (Misc Panel) 166H CBC/BMP Laboratory Tests 04/30/19 18:28 Calcium Level 7.9 L 04/30/19 20:09 Calcium Level 8.0 L 04/30/19 23:00 Calcium Level 7.8 L 05/01/19 01:03 Calcium Level 8.1 L 05/01/19 04:51 Red Blood Count 3.97 L, Mean Corpuscular Volume 99.5 H, Mean Corpuscular Hemoglobin 32.2, Mean Corpuscular Hemoglobin Concent 32.4, Red Cell Distribution Width 13.3, Calcium Level 8.1 L, Phosphorus Level 1.1 L, Aspartate Amino Transf (AST/SGOT) 43 H, Alanine Aminotransferase (ALT/SGPT) 38, Alkaline Phosphatase 85, Total Bilirubin 0.9, Total Protein 7.4 #, Albumin 3.4 # 05/01/19 09:02 Calcium Level 7.5 L Microbiology Microbiology 04/30/19 Blood Culture, Received Pending 04/30/19 Blood Culture, Received Pending MARIO ALBERTO NAPIER MD May 01, 2019 11:54
[2019-05-01] MEDS ORDERED: KCL 10MEQ/100ML SWI (KRUN) 10 MEQ in APPROPRIATE DILUENT 1 EA IV ONE ×2 (12:00→23:00)
[2019-05-01] MEDS ORDERED: POTASSIUM PHOSPHATE INJ 15 MMOL in D5W 250 ML IV ONE (13:00)
[2019-05-01 13:45] LABS: BLOOD UREA NITROGEN 5 MG/DL (7-18); CALCIUM LEVEL 7.4 MG/DL (8.5-10.1); CARBON DIOXIDE LEVEL 17 MEQ/L (21-32); CHLORIDE LEVEL 109 MEQ/L (98-107); CREATININE FOR GFR 0.72 MG/DL (0.55-1.30); GLOMERULAR FILTRATION RATE > 60.0 (>60); GLUCOSE, FASTING 105 MG/DL (70-100); PHOSPHORUS LEVEL 0.5 MG/DL (2.5-4.9); SODIUM LEVEL 137 MEQ/L (136-145)
[2019-05-01] MEDS: POTASSIUM CHLORIDE 10 MEQ SR TABLET PO ONE ×3 (14:44→15:00)
[2019-05-01] MEDS: LEVEMIR (INSULIN DETEMIR) 1 UNITS/0.01ML SC SCH (14:44)
[2019-05-01] MEDS ORDERED: POTASSIUM CHLORIDE 10% LIQ 20 MEQ/15 ML UDC PO ONE ×2 (15:00→23:00)
[2019-05-01] MEDS ORDERED: POTASSIUM CHLORIDE 10 MEQ SR TABLET PO ONE (15:15)
--- NOTE | 2019-05-01 16:57 | ECGEPIP ---
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
[2019-05-01 17:17] LABS: BLOOD UREA NITROGEN 4 MG/DL (7-18); CARBON DIOXIDE LEVEL 17 MEQ/L (21-32); CHLORIDE LEVEL 107 MEQ/L (98-107); CREATININE FOR GFR 0.68 MG/DL (0.55-1.30); GLOMERULAR FILTRATION RATE > 60.0 (>60); GLUCOSE, FASTING 160 MG/DL (70-100); POTASSIUM SERUM 3.4 MEQ/L (3.5-5.1); SODIUM LEVEL 135 MEQ/L (136-145)
[2019-05-01] MEDS: HumaLOG INSULIN (NovoLOG) PER UNIT SC SCH ×2 (18:34→21:00)
--- NOTE | 2019-05-01 20:34 | ECGEPIP ---
[facility] Test Date: 2019-04-30 Pat Name: FRIDA HERNANDEZ Department: Room: - Gender: Female Cinema Operator: maritza : 1985 Requested By: SUSAN SOTELO Order Number: [id number] Reading MD: Logan Rueda Measurements Intervals [place] Rate: 109 P: 74 TN: 126 QRS: 78 QRSD: 92 T: 76 QT: 346 QTc: 468 Interpretive Statements SINUS TACHYCARDIA ABNORMAL RHYTHM ECG Electronically Signed on 05-01-2019 20:34:11 EDT by Logan Rueda
[2019-05-01] MEDS: K-PHOS ORIGINAL (POT.ACID PHOSPHATE) 500MG TAB PO SCH ×2 (21:30→22:25)
[2019-05-01 21:52] LABS: BLOOD UREA NITROGEN 4 MG/DL (7-18); CALCIUM LEVEL 8.1 MG/DL (8.5-10.1); CARBON DIOXIDE LEVEL 19 MEQ/L (21-32); CHLORIDE LEVEL 107 MEQ/L (98-107); CREATININE FOR GFR 0.65 MG/DL (0.55-1.30); GLOMERULAR FILTRATION RATE > 60.0 (>60); GLUCOSE, FASTING 112 MG/DL (70-100); POTASSIUM SERUM 3.2 MEQ/L (3.5-5.1); SODIUM LEVEL 135 MEQ/L (136-145)
[2019-05-02] VITALS: BP 118/79
[2019-05-02 02:09] LABS: BLOOD UREA NITROGEN 4 MG/DL (7-18); CALCIUM LEVEL 8.1 MG/DL (8.5-10.1); CARBON DIOXIDE LEVEL 20 MEQ/L (21-32); CHLORIDE LEVEL 105 MEQ/L (98-107); CREATININE FOR GFR 0.64 MG/DL (0.55-1.30); GLOMERULAR FILTRATION RATE > 60.0 (>60); GLUCOSE, FASTING 136 MG/DL (70-100); POTASSIUM SERUM 3.9 MEQ/L (3.5-5.1); SODIUM LEVEL 134 MEQ/L (136-145)
[2019-05-02] MEDS: metroNIDAZOLE 500 MG in APPROPRIATE DILUENT 1 EA IV SCH ×3 (03:24→18:24)
[2019-05-02 04:00] VITALS: BP 120/83
[2019-05-02] MEDS: HYDROMORPHONE HCL 0.5 MG/ 0.5 ML SYRINGE (J1170 PER 1) IV PRN (04:37)
[2019-05-02] MEDS: ONDANSETRON 4MG/2ML VIAL (J2405) IV PRN (04:44)
[2019-05-02 04:52] LABS: BASO % 0.4 % (0.0-1.0); EOS % 0.4 % (0.0-3.0); HEMATOCRIT 36.6 % (36.0-47.0); HEMOGLOBIN 12.7 g/dl (12.0-15.5); LYMPH # 1.2 10^3/uL (1.5-5.0); LYMPH % 14.9 % (24.0-44.0); MEAN CORPUSCULAR HEMOGLOBIN 33.9 pg (27.0-33.0); MEAN CORPUSCULAR HGB CONC 34.7 g/dl (32.0-36.5); MEAN CORPUSCULAR VOLUME 97.6 fl (80.0-96.0); MONO # 0.6 10^3/uL (0.0-0.8); MONO % 7.3 % (0.0-5.0); NEUTROPHILS # 6.1 10^3/uL (1.5-8.5); NEUTROPHILS % 76.7 % (36.0-66.0); PLATELET COUNT, AUTOMATED 103 10^3/uL (150-450); RED BLOOD COUNT 3.75 10^6/uL (4.00-5.40)
[2019-05-02 05:14] LABS: ALBUMIN 3.1 GM/DL (3.2-5.2); ALT/SGPT 29 U/L (12-78); BLOOD UREA NITROGEN 3 MG/DL (7-18); CARBON DIOXIDE LEVEL 20 MEQ/L (21-32); CHLORIDE LEVEL 105 MEQ/L (98-107); CREATININE FOR GFR 0.69 MG/DL (0.55-1.30); GLOMERULAR FILTRATION RATE > 60.0 (>60); GLUCOSE, FASTING 142 MG/DL (70-100); MAGNESIUM LEVEL 1.8 MG/DL (1.8-2.4); PHOSPHORUS LEVEL 0.4 MG/DL (2.5-4.9); POTASSIUM SERUM 3.5 MEQ/L (3.5-5.1); SODIUM LEVEL 133 MEQ/L (136-145); TOTAL PROTEIN 7.2 GM/DL (6.4-8.2)
[2019-05-02] MEDS ORDERED: SODIUM PHOSPHATE INJ 30 MMOL in D5W 500 ML IV ONE (08:00)
[2019-05-02] MEDS: LEVEMIR (INSULIN DETEMIR) 1 UNITS/0.01ML SC SCH (08:24)
[2019-05-02] MEDS: HumaLOG INSULIN (NovoLOG) PER UNIT SC SCH ×4 (08:24→20:33)
[2019-05-02] MEDS: K-PHOS ORIGINAL (POT.ACID PHOSPHATE) 500MG TAB PO SCH ×2 (08:25→21:16)
[2019-05-02] MEDS: HEPARIN SOD (PORCINE) 5000 UNITS/ML VIAL SC SCH (08:54)
[2019-05-02 09:06] VITALS: BP 121/74
[2019-05-02] MEDS: PERCOCET 5MG/325MG TAB PO PRN ×3 (09:15→18:52)
[2019-05-02] MEDS: PANTOPRAZOLE 40MG TAB (PROTONIX) PO SCH (09:16)
[2019-05-02] MEDS ORDERED: MAG SULF 1GM/100ML (MAG RUN) 1 GM in APPROPRIATE DILUENT 1 EA IV ONE (10:00)
[2019-05-02] MEDS: CIPROFLOXACIN 400 MG in APPROPRIATE DILUENT 1 EA IV SCH ×2 (10:32→21:17)
--- NOTE | 2019-05-02 11:06 | IPNPDOC ---
Subjective Date Seen The patient was seen on 05/02/19. Subjective Chief Complaint/HPI Offers no new complaints. The present time except soreness at the lower esophagus on swelling General: Denies: ROS Unobtainable, Chills, Night Sweats, Fatigue, Malaise, Normal Appetite, Other Symptoms Constitutional: Denies: Chills, Fever, Malaise, Night Sweats, Weakness, Fatigue, Weight Loss, Lethargy, Other Eyes: Denies: Pain, Vision change, Conjunctivae inflammation, Eyelid inflammation, Redness, Other ENT: Denies: Head Aches, Ear Pain, Dysphagia, Sinus Congestion, Post Nasal Drip, Sore Throat, Epistaxis, Other Symptoms Skin: Denies: Rash, Lesions, Jaundice, Bruising, Itching, Dry, Breakdown, Nail Changes, Other Cardiovascular: Denies: Chest Pain, Palpitations, Orthopnea, Paroxysmal Noc. Dyspnea, Edema, Lt Headedness, Other Symptoms Gastrointestinal: Denies: Nausea, Vomiting, Abdominal Pain, Diarrhea, Constipation, Melena, Hematochezia, Other Symptoms Musculoskeletal: Denies: Neck Pain, Back Pain, Shoulder Pain, Arm Pain, Hand Pain, Leg Pain, Foot Pain, Joint Pain, Muscle Pain, Spasms, Other Symptoms Neurological: Denies: Weakness, Numbness, Incoordination, Change in speech, Confusion, Seizures, Other Symptoms Psych: Denies: Mood Normal, Anxiety, Depression, Memory Issues, Thoughts of Self Harm, Anger, Thoughts of Harming Other, Other Psych Objective Physical Examination General Exam: Positive: Alert, Cooperative Eye Exam: Positive: PERRLA, EOMI ENT Exam: Positive: Atraumatic Neck Exam: Positive: Supple; Negative: JVD Chest Exam: Positive: Clear to auscultation Heart Exam: Positive: Tachycardic Telemetry: Positive: No significant arrhythmia Abdomen Exam: Positive: BS Hypoactive, Tenderness (mild tenderness. Positive at the left lower quadrant) Extremity Exam: Negative: Clubbing, Cyanosis Skin Exam: Negative: Rash Neuro Exam: Positive: Strength at 5/5 X4 ext, Cranial Nerves 3-12 NL Psych Exam: Positive: Mental status NL Assessment /Plan Problems (1) DKA (diabetic ketoacidoses) Status: Resolved Problem Text: Started on a carb consistent diet IV fluids. DC Continue detemir 10 units subcutaneous daily Antibody workup is still pending, most likely autoimmune or secondary to previous pancreatitis Monitor for inducible sugar with coverage (2) Metabolic acidosis Status: Resolved Problem Text: (3) Dehydration Status: Resolved Problem Text: (4) Colitis Status: Acute Problem Text: WBC count is progressively decreasing Patient is no more abdominal pain up or tenderness on palpation Continue Cipro and Flagyl Pain management Out of bed as tolerated (5) Pancreatic lesion Status: Chronic (6) Thrombocytopenia Status: Acute Problem Text: Patient's platelet counts has a progressively decreasing its 103 today. We will DC subcutaneous heparin. Patient does not require DVT prophylaxis as she can be physically active. Once the IV fluids and drips have been stopped Repeat labs in a.m. Plan/VTE VTE Prophylaxis Ordered?: No VTE Exclusion Mechanical Proph: Low Risk for VTE VTE Exclusion Pharmacological: At Low Risk for VTE Plan IVF: Initiate VS, I&O, 24H, Fishbone Vital Signs/I&O Vital Signs Date Time Temp Pulse Resp B/P (MAP) Pulse Ox O2 Delivery O2 Flow Rate FiO2 05/02/19 09:45 18 05/02/19 09:06 98.5 100 121/74 (90) 99 05/01/19 04:00 Room Air I&O- Last 24 Hours up to 6 AM 05/02/19 05:59 Intake Total 3289.0 ml Output Total 500 ml Balance 2789.0 ml Laboratory Data 24H LABS Laboratory Tests 2 05/01/19 12:17: Bedside Glucose (Misc Panel) 103 05/01/19 13:05: Anion Gap 11, Glomerular Filtration Rate > 60.0, Blood Urea Nitrogen 5L, Creatinine 0.72, Sodium Level 137, Potassium Level 3.0L, Chloride Level 109H, Carbon Dioxide Level 17L, Calcium Level 7.4L, Phosphorus Level 0.5#L 05/01/19 13:06: Bedside Glucose (Misc Panel) 94 05/01/19 16:28: Anion Gap 11, Glomerular Filtration Rate > 60.0, Blood Urea Nitrogen 4L, Creatinine 0.68, Sodium Level 135L, Potassium Level 3.4L, Chloride Level 107, Carbon Dioxide Level 17L, Calcium Level 8.0L 05/01/19 18:24: Bedside Glucose (Misc Panel) 142H 05/01/19 20:57: Bedside Glucose (Misc Panel) 112H 05/01/19 21:04: Anion Gap 9, Glomerular Filtration Rate > 60.0, Blood Urea Nitrogen 4L, Creatinine 0.65, Sodium Level 135L, Potassium Level 3.2L, Chloride Level 107, Carbon Dioxide Level 19L, Calcium Level 8.1L 05/02/19 01:01: Anion Gap 9, Glomerular Filtration Rate > 60.0, Blood Urea Nitrogen 4L, Creatinine 0.64, Sodium Level 134L, Potassium Level 3.9#, Chloride Level 105, Carbon Dioxide Level 20L, Calcium Level 8.1L 05/02/19 04:39: Immature Granulocyte % (Auto) 0.3, White Blood Count 8.0, Red Blood Count 3.75L, Hemoglobin 12.7, Hematocrit 36.6, Mean Corpuscular Volume 97.6H, Mean Corpuscular Hemoglobin 33.9H, Mean Corpuscular Hemoglobin Concent 34.7, Red Cell Distribution Width 12.9, Platelet Count 103L, Neutrophils (%) (Auto) 76.7H, Lymphocytes (%) (Auto) 14.9L, Monocytes (%) (Auto) 7.3H, Eosinophils (%) (Auto) 0.4, Basophils (%) (Auto) 0.4, Neutrophils # (Auto) 6.1, Lymphocytes # (Auto) 1.2L, Monocytes # (Auto) 0.6, Eosinophils # (Auto) 0.0, Basophils # (Auto) 0.0, Nucleated Red Blood Cells % (auto) 0.0, Anion Gap 8, Glomerular Filtration Rate > 60.0, Blood Urea Nitrogen 3L, Creatinine 0.69, Sodium Level 133L, Potassium Level 3.5, Chloride Level 105, Carbon Dioxide Level 20L, Calcium Level 8.0L, Phosphorus Level 0.4L, Aspartate Amino Transf (AST/SGOT) 33, Alanine Aminotransferase (ALT/SGPT) 29, Alkaline Phosphatase 81, Total Bilirubin 1.0, Total Protein 7.2, Albumin 3.1L, Magnesium Level 1.8, Albumin/Globulin Ratio 0.76L 05/02/19 08:18: Bedside Glucose (Misc Panel) 172H CBC/BMP Laboratory Tests 05/01/19 13:05 Calcium Level 7.4 L 05/01/19 16:28 Calcium Level 8.0 L 05/01/19 21:04 Calcium Level 8.1 L 05/02/19 01:01 Calcium Level 8.1 L 05/02/19 04:39 Red Blood Count 3.75 L, Mean Corpuscular Volume 97.6 H, Mean Corpuscular Hemoglobin 33.9 H, Mean Corpuscular Hemoglobin Concent 34.7, Red Cell Distribution Width 12.9, Neutrophils (%) (Auto) 76.7 H, Lymphocytes (%) (Auto) 14.9 L, Monocytes (%) (Auto) 7.3 H, Eosinophils (%) (Auto) 0.4, Basophils (%) ( Auto) 0.4, Neutrophils # (Auto) 6.1, Lymphocytes # (Auto) 1.2 L, Monocytes # (Auto) 0.6, Eosinophils # (Auto) 0.0, Basophils # (Auto) 0.0, Calcium Level 8.0 L, Phosphorus Level 0.4 L, Aspartate Amino Transf (AST/SGOT) 33, Alanine Aminotransferase (ALT/SGPT) 29, Alkaline Phosphatase 81, Total Bilirubin 1.0, Total Protein 7.2, Albumin 3.1 L Microbiology Microbiology 04/30/19 Blood Culture - Preliminary, Resulted No growth after 24 hours . All specim... 04/30/19 Blood Culture - Preliminary, Resulted No growth after 24 hours . All specim... MARIO ALBERTO NAPIER MD May 02, 2019 11:06
[2019-05-02 15:10] VITALS: BP 120/78
[2019-05-02] MEDS ORDERED: GLUCOSE 4 GM CHEW TABLET PO PRN (17:00)
[2019-05-02] MEDS ORDERED: GLUCAGON FOR INJ 1 MG VIAL (J1610) SC PRN (17:00)
[2019-05-02] MEDS ORDERED: DEXTROSE 50% 50 ML SYRINGE IV PRN (17:00)
[2019-05-02 19:00] VITALS: BP 110/64
[2019-05-02 20:55] VITALS: BP 111/80
[2019-05-03] MEDS: PERCOCET 5MG/325MG TAB PO PRN ×2 (02:41→09:17)
[2019-05-03] MEDS: metroNIDAZOLE 500 MG in APPROPRIATE DILUENT 1 EA IV SCH ×2 (02:42→11:00)
[2019-05-03 04:00] VITALS: BP 110/72
[2019-05-03 04:54] LABS: BASO % 0.6 % (0.0-1.0); EOS % 0.4 % (0.0-3.0); HEMATOCRIT 35.5 % (36.0-47.0); HEMOGLOBIN 12.3 g/dl (12.0-15.5); LYMPH # 0.9 10^3/uL (1.5-5.0); LYMPH % 18.9 % (24.0-44.0); MEAN CORPUSCULAR HEMOGLOBIN 32.7 pg (27.0-33.0); MEAN CORPUSCULAR HGB CONC 34.6 g/dl (32.0-36.5); MEAN CORPUSCULAR VOLUME 94.4 fl (80.0-96.0); MONO # 0.5 10^3/uL (0.0-0.8); MONO % 10.7 % (0.0-5.0); NEUTROPHILS # 3.3 10^3/uL (1.5-8.5); PLATELET COUNT, AUTOMATED 100 10^3/uL (150-450); RED BLOOD COUNT 3.76 10^6/uL (4.00-5.40); WHITE BLOOD COUNT 4.8 10^3/uL (4.0-10.0)
[2019-05-03 05:03] VITALS: BP 114/76
[2019-05-03 05:12] LABS: ALBUMIN 2.9 GM/DL (3.2-5.2); ALT/SGPT 23 U/L (12-78); BILIRUBIN,TOTAL 0.7 MG/DL (0.2-1.0); BLOOD UREA NITROGEN 4 MG/DL (7-18); CARBON DIOXIDE LEVEL 27 MEQ/L (21-32); CHLORIDE LEVEL 101 MEQ/L (98-107); CREATININE FOR GFR 0.46 MG/DL (0.55-1.30); GLOMERULAR FILTRATION RATE > 60.0 (>60); GLUCOSE, FASTING 158 MG/DL (70-100); POTASSIUM SERUM 2.7 MEQ/L (3.5-5.1); SODIUM LEVEL 135 MEQ/L (136-145); TOTAL PROTEIN 6.5 GM/DL (6.4-8.2)
[2019-05-03] MEDS ORDERED: POTASSIUM CHLORIDE 10 MEQ SR TABLET PO ONE (05:30)
[2019-05-03] MEDS ORDERED: KCL 10MEQ/100ML SWI (KRUN) 10 MEQ in APPROPRIATE DILUENT 1 EA IV ONE (05:30)
[2019-05-03 06:47] LABS: MAGNESIUM LEVEL 2.1 MG/DL (1.8-2.4); PHOSPHORUS LEVEL 1.5 MG/DL (2.5-4.9)
[2019-05-03] MEDS ORDERED: K-PHOS NEUTRAL 250MG TABLET (SOD.PHOSPHATE/POT.PHOSPHATE) PO SCH (09:00)
[2019-05-03] MEDS: PANTOPRAZOLE 40MG TAB (PROTONIX) PO SCH (09:16)
[2019-05-03] MEDS: HumaLOG INSULIN (NovoLOG) PER UNIT SC SCH ×2 (09:18→12:00)
[2019-05-03] MEDS: CIPROFLOXACIN 400 MG in APPROPRIATE DILUENT 1 EA IV SCH (09:18)
[2019-05-03 10:41] LABS: BLOOD UREA NITROGEN 4 MG/DL (7-18); CALCIUM LEVEL 8.6 MG/DL (8.5-10.1); CARBON DIOXIDE LEVEL 24 MEQ/L (21-32); CHLORIDE LEVEL 102 MEQ/L (98-107); CREATININE FOR GFR 0.53 MG/DL (0.55-1.30); GLOMERULAR FILTRATION RATE > 60.0 (>60); GLUCOSE, FASTING 144 MG/DL (70-100); SODIUM LEVEL 134 MEQ/L (136-145)
[2019-05-03] MEDS ORDERED: PANT40TA3 PO (11:08)
[2019-05-03] MEDS ORDERED: PERCOCET PO (11:08)
[2019-05-03] MEDS ORDERED: CIPR-250 PO (11:08)
[2019-05-03] MEDS ORDERED: FLAG250T PO (11:08)
[2019-05-03] MEDS ORDERED: POTA1TAB23 PO (11:14)
[2019-05-03] MEDS ORDERED: GLUC500T PO (11:49)
--- NOTE | 2019-05-03 13:02 | DS.PDOC ---
Discharge Summary General Date of Admission Apr 30, 2019 at 17:43 Date of Discharge 05/03/19 Attending Physician: MARIO ALBERTO NAPIER MD Discharge Summary PROCEDURES PERFORMED DURING STAY: None. ADMITTING DIAGNOSES: 1. DKA metabolic acidosis, diabetes mellitus type 2. DISCHARGE DIAGNOSES: 1. DKA, metabolic acidosis, diabetes mellitus type 2, and acute colitis, dehydration, acute esophagitis, hypokalemia, hypomagnesemia. COMPLICATIONS/CHIEF COMPLAINT: Dehydration Dka Metabiloc Acidosis. HISTORY OF PRESENT ILLNESS: Patient is 34 years old female without significant past medical history presented to the hospital with nausea, vomiting, abdominal pain. Patient stated that around 3-4 days ago she started feeling nausea, vomited multiple times almost every hour, had epigastric abdominal pain. Today his symptoms became worse and she decided to come to the hospital. Of note, patient stated when she was 19 years old she was found to have hyperglycemia however she has never been diagnosed with diabetes, did not take any medications for diabetes. Also patient recently had pancreatitis and she was admitted in the hospital.. In emergency room patient was found to have a glucose level of 299, lactic acid of 3.4, potassium level 5.4, bicarbonate 6, anion gap of 27, VBG pH 6.8, urine positive for ketones. HOSPITAL COURSE: Patient was admitted to ICU with DKA. Patient was started on normal saline and insulin drip initially. Patient was monitored with every 4 hours BMP and ABGs patient had a white anion gap and acidosis on the basis of laboratory work, which was corrected with IV fluids and bicarbonate of 2 A IV. Patient progressively improved. Her fingerstick became normal. IV fluids were changed to D5 half-normal saline and continued on a small dose of insulin. R and insulin was DC'd IV fluids were DC'd and she was started on oral feedings as well as fingerstick blood sugar every before meals and at bedtime and with coverage. Also was found to have acute colitis and was started on Flagyl and Cipro IV, which she responded well with the results in resolution of symptoms and decreasing WBC count. Patient also remained hypokalemic for which she frequently required potassium supplement as well as magnetic magnesium for many hypomagnesemia. Patient will be discharged home on by mouth Glucophage 500 mg by mouth twice a day, and carbonic consistent diet and diabetic teaching will be provided by nursing staff. Extensive counseling was done regarding alcohol abuse. All the risks were explained to her and patient planning to address it as an outpatient. In the meantime for acute esophagitis. Patient had been prescribed Protonix for 6 weeks. Further any changes as per PCP when she sees him as an outpatient.. DISCHARGE MEDICATIONS: Please see below. ALLERGIES: Please see below. PHYSICAL EXAMINATION ON DISCHARGE: VITAL SIGNS: Please see below. GENERAL: Within normal limits HEENT: . Pupils equally reactive to light and accommodation NECK: Supple CARDIOVASCULAR EXAMINATION: S1, S2, regular RESPIRATORY EXAMINATION: Clear to A&P ABDOMINAL EXAMINATION: , Soft, nontender, bowel sounds present EXTREMITIES: Negative clubbing, cyanosis, edema SKIN: Within normal limits NEUROLOGICAL EXAMINATION: . No focal motor sensory deficit PSYCHIATRIC EXAMINATION: Normal exam LABORATORY DATA: Please see below. IMAGING: CT abdomen pelvis:Impression: 1. Mild mucosal thickening to the distal esophagus raising the possibility of esophagitis. 2. Hepatic steatosis without focal hepatic lesion. 3. Mild mucosal thickening to the ascending and transverse colon raising the possibility of infectious/inflammatory colitis and correlation is recommended. 4. Stable solid 1.5 cm enhancing ovoid lesion at the tail of the pancreas previously evaluated on MRI warrants continued evaluation. PROGNOSIS: Good ACTIVITY: As tolerated. DIET: Carbohydrate consistent diet DISCHARGE PLAN: Follow with PCP in one week DISPOSITION: . Home DISCHARGE INSTRUCTIONS: 1. As per discharge instructions. ITEMS TO FOLLOWUP ON ON OUTPATIENT: 1. Follow with PCP in one week. DISCHARGE CONDITION: Stable. TIME SPENT ON DISCHARGE: 38 minutes. Vital Signs/I&Os Vital Signs Date Time Temp Pulse Resp B/P (MAP) Pulse Ox O2 Delivery O2 Flow Rate FiO2 05/03/19 09:47 16 05/03/19 05:03 98.3 85 114/76 (89) 96 05/01/19 04:00 Room Air I&O- Last 24 Hours up to 6 AM 05/03/19 06:00 Intake Total 2900 ml Output Total 600 ml Balance 2300 ml Laboratory Data Labs 24H Laboratory Tests 2 05/02/19 16:41: Bedside Glucose (Misc Panel) 45L 05/02/19 17:03: Bedside Glucose Confirm (Misc) 62 05/02/19 17:22: Bedside Glucose (Misc Panel) 103 05/02/19 20:31: Bedside Glucose (Misc Panel) 146H 05/02/19 22:25: Bedside Glucose (Misc Panel) 180H 05/03/19 04:33: Immature Granulocyte % (Auto) 0.4, White Blood Count 4.8, Red Blood Count 3.76L, Hemoglobin 12.3, Hematocrit 35.5L, Mean Corpuscular Volume 94.4, Mean Corpuscular Hemoglobin 32.7, Mean Corpuscular Hemoglobin Concent 34.6, Red Cell Distribution Width 12.8, Platelet Count 100L, Neutrophils (%) (Auto) 69.0H, Lymphocytes (%) (Auto) 18.9L, Monocytes (%) (Auto) 10.7H, Eosinophils (%) (Auto) 0.4, Basophils (%) (Auto) 0.6, Neutrophils # (Auto) 3.3, Lymphocytes # (Auto) 0.9L, Monocytes # (Auto) 0.5, Eosinophils # (Auto) 0.0, Basophils # (Auto) 0.0, Nucleated Red Blood Cells % (auto) 0.0, Anion Gap 7L, Glomerular Filtration Rate > 60.0, Blood Urea Nitrogen 4L, Creatinine 0.46L, Sodium Level 135L, Potassium Level 2.7#*L, Chloride Level 101, Carbon Dioxide Level 27, Calcium Level 8.0L, Phosphorus Level 1.5#L, Aspartate Amino Transf (AST/SGOT) 19, Alanine Aminotransferase (ALT/SGPT) 23, Alkaline Phosphatase 74, Total Bilirubin 0.7, Total Protein 6.5, Albumin 2.9L, Magnesium Level 2.1, Albumin/Globulin Ratio 0.81L 05/03/19 09:56: Anion Gap 8, Glomerular Filtration Rate > 60.0, Blood Urea Nitrogen 4L, Creatinine 0.53L, Sodium Level 134L, Potassium Level 3.0L, Chloride Level 102, Carbon Dioxide Level 24, Calcium Level 8.6 05/03/19 11:21: Bedside Glucose (Misc Panel) 180H CBC/BMP Laboratory Tests 05/03/19 04:33 Red Blood Count 3.76 L, Mean Corpuscular Volume 94.4, Mean Corpuscular Hemoglobin 32.7, Mean Corpuscular Hemoglobin Concent 34.6, Red Cell Distribution Width 12.8, Neutrophils (%) (Auto) 69.0 H, Lymphocytes (%) (Auto) 18.9 L, Monocytes (%) (Auto) 10.7 H, Eosinophils (%) (Auto) 0.4, Basophils (%) (Auto) 0.6, Neutrophils # (Auto) 3.3, Lymphocytes # (Auto) 0.9 L, Monocytes # (Auto) 0.5, Eosinophils # (Auto) 0.0, Basophils # (Auto) 0.0, Calcium Level 8.0 L, Phosphorus Level 1.5 #L, Aspartate Amino Transf (AST/SGOT) 19, Alanine Aminotransferase (ALT/SGPT) 23, Alkaline Phosphatase 74, Total Bilirubin 0.7, Total Protein 6.5, Albumin 2.9 L 05/03/19 09:56 Calcium Level 8.6 FSBS Laboratory Tests Test 05/02/19 16:41 05/02/19 17:22 05/02/19 20:31 05/02/19 22:25 Range/Units Bedside Glucose (Misc Panel) 45 103 146 180 70-105 MG/DL Test 05/03/19 11:21 Range/Units Bedside Glucose (Misc Panel) 180 70-105 MG/DL Microbiology Microbiology 04/30/19 Blood Culture - Preliminary, Resulted No Growth after 48 hours. All Specime... 04/30/19 Blood Culture - Preliminary, Resulted No Growth after 48 hours. All Specime... Discharge Medications Scheduled Ciprofloxacin HCl (Cipro) 250 Mg Tablet, 250 MG PO BID Metformin HCl (Glucophage) 500 Mg Tablet, 500 MG PO BID Metronidazole (Flagyl) 250 Mg Tablet, 250 MG PO TID Pantoprazole Sodium (Pantoprazole Sodium) 40 Mg Tablet.dr, 40 MG PO DAILY Mem625/Iron Fum/Folic/Docusate ( 19 Tablet) 1 Tab Tab, 1 TAB PO DAILY, (Reported) Potassium Chloride (Potassium Chloride) 10 Meq Tablet.er, 1 TAB PO DAILY Scheduled PRN Oxycodone/Acetaminophen (Oxycodone-Acetaminophen 5-325) 1 Each Tablet, 1 TAB PO Q4HP PRN for PAIN Allergies Coded Allergies: No Known Allergies (Unverified , 07/19/17) MARIO ALBERTO NAPIER MD May 03, 2019 13:02
[2019-05-04 00:06] LABS: ISLET CELL ANTIBODIES Negative (Neg:<1:1)
== END 2019-05-03 13:39 | disposition home or self-care (01) | DRG 638 ==
LOC: M ED 10:43 → M ED INP 17:43 → M ICU 20:30 → M MSPAV 05-02 14:28
PROVIDERS: ADMIT Internal Medicine; ATTEND Internal Medicine
DX: E11.10 Type 2 diabetes mellitus with ketoacidosis without coma (principal); A04.9 Bacterial intestinal infection, unspecified; E86.0 Dehydration; K86.89 Other specified diseases of pancreas; D69.6 Thrombocytopenia, unspecified; K20.9 Esophagitis, unspecified; E87.6 Hypokalemia; E83.42 Hypomagnesemia; Z79.899 Other long term (current) drug therapy

== ENCOUNTER 2019-06-21 16:55 | Inpatient (IN) | payer OTHER ==
[2019-06-21] VITALS (9 sets, daily range): BP systolic 91–131; BP diastolic 62–81
[~2019-06-21] VITALS: Ht 167.6 cm; Wt 47.8 kg
[~2019-06-21 16:55] MED LIST changes: +CIPR-250 PO; +FLAG250T PO; +GLUC500T PO; +PANT40TA3 PO; +PANTOPRAZOLE 40MG INJ (PROTONIX) (C9113) IV SCH; +PERCOCET PO; +POTA1TAB23 PO
[2019-06-21] MEDS ORDERED: ADENOSINE 6MG/2ML INJECTION (J0153) As Ordered ONE (17:06)
[2019-06-21] MEDS ORDERED: MIDAZOLAM INJ 2 MG/2 ML VIAL (J2250) As Ordered ONE (17:21)
[2019-06-21 18:04] LABS: ABG BASE EXCESS -13.4 (-2.0-2.0); ABG HCO3 13.1 MEQ/L (22.0-26.0); ABG O2 SATURATION 90.7 % (95.0-99.0); ABG PARTIAL PRESSURE O2 76.1 mmHg (75.0-100.0); ABG STANDARD HCO3 14.2 MEQ/L (22.0-26.0); ABG TOTAL CO2 14.1 MEQ/L (22.0-29.0)
[2019-06-21 18:05] LABS: ABG pH (ARTERIAL) 7.217 UNITS (7.350-7.450)
--- NOTE | 2019-06-21 18:06 | REPVR ---
PROCEDURE INFORMATION: Exam: CT Head Without Contrast Exam date and time: 06/21/2019 5:19 PM Clinical history: 34 years old, female; Injury or trauma; Injury history: Found unresponsive; Initial encounter; Blunt trauma (contusions or hematomas) TECHNIQUE: Imaging protocol: Computed tomography of the head without contrast. Radiation optimization: All CT scans at this facility use at least one of these dose optimization techniques: automated exposure control; mA and/or kV adjustment per patient size (includes targeted exams where dose is matched to clinical indication); or iterative reconstruction. COMPARISON: No relevant prior studies available. FINDINGS: Brain: Unremarkable. No acute intracranial hemorrhage. No midline shift. Ventricles: Normal. No ventriculomegaly. Bones/joints: No acute fracture. Sinuses: Mild mucosal thickening in the right maxillary sinus. Mastoid air cells: Visualized mastoid air cells are well aerated. Soft tissues: Unremarkable. IMPRESSION: No acute intracranial abnormality. Electronically signed by: Ilana Maxwell On 06/21/2019 18:06:19 PM
--- NOTE | 2019-06-21 18:11 | REPVR ---
PROCEDURE INFORMATION: Exam: CT Cervical Spine Without Contrast Exam date and time: 06/21/2019 5:19 PM Clinical history: 34 years old, female; Injury or trauma; Injury history: Found unresponsive; Initial encounter; Blunt trauma TECHNIQUE: Imaging protocol: Computed tomography images of the cervical spine without contrast. Radiation optimization: All CT scans at this facility use at least one of these dose optimization techniques: automated exposure control; mA and/or kV adjustment per patient size (includes targeted exams where dose is matched to clinical indication); or iterative reconstruction. COMPARISON: No relevant prior studies available. FINDINGS: Limitations: Examination is slightly limited by motion artifact. Tubes, catheters and devices: Patient is intubated. 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 No acute fracture is identified. Normal alignment. Discs/Spinal canal/Neural foramina: No significant disc space narrowing. Soft tissues: Unremarkable. Lungs: Mild patchy groundglass opacity in the right upper lobe. Multifocal consolidation and groundglass opacity in the left upper lobe. IMPRESSION: 1. No acute cervical spine fracture. 2. Consolidation in the left upper lobe, which may reflect pulmonary contusion or aspiration. Electronically signed by: Ilana Maxwell On 06/21/2019 18:11:39 PM
[2019-06-21] MEDS: MIDAZOLAM INJ 5 MG/ML VIAL (J2250) IV PRN ×3 (18:14→19:18)
--- NOTE | 2019-06-21 18:14 | REPVR ---
PROCEDURE INFORMATION: Exam: CT Maxillofacial Without Contrast Exam date and time: 06/21/2019 5:19 PM Clinical history: 34 years old, female; Injury or trauma; Injury history: Found unresponsive; Initial encounter; Blunt trauma (contusions or hematomas); Forehead TECHNIQUE: Imaging protocol: Computed tomography images of the face without contrast. Radiation optimization: All CT scans at this facility use at least one of these dose optimization techniques: automated exposure control; mA and/or kV adjustment per patient size (includes targeted exams where dose is matched to clinical indication); or iterative reconstruction. COMPARISON: No relevant prior studies available. FINDINGS: Limitations: Examination is slightly limited by motion artifact. Orbits: Orbits are normal. Globes are unremarkable. Sinuses: Mild mucosal thickening right maxillary sinus. Bones/joints: No acute fracture. Soft tissues: Unremarkable. IMPRESSION: No acute facial fracture. Electronically signed by: Ilana Maxwell On 06/21/2019 18:14:50 PM
[2019-06-21] MEDS ORDERED: PIPERACILLIN/TAZOBACTAM SOD 4.5 GM in D5W MINI-BAG PLUS 50 ML IV ONE (18:15)
[2019-06-21] MEDS ORDERED: ADENOSINE 6MG/2ML INJECTION (J0153) IV STA (18:16)
[2019-06-21] MEDS ORDERED: ETOMIDATE INJ 20MG/10ML VIAL IV STA (18:17)
[2019-06-21] MEDS ORDERED: SUCCINYLCHOLINE INJ 200 MG/10 ML VIAL (J0330) IV ONE (18:30)
[2019-06-21] MEDS ORDERED: KCL 10MEQ/100ML SWI (KRUN) 10 MEQ in IV 1 EA IV SCH (18:30)
[2019-06-21] MEDS ORDERED: NS 1,000 ML IV ONE ×2 (18:30→20:00)
[2019-06-21 19:05] LABS: BLOOD UREA NITROGEN 6 MG/DL (7-18); CALCIUM LEVEL 9.7 MG/DL (8.5-10.1); CARBON DIOXIDE LEVEL 15 MEQ/L (21-32); CHLORIDE LEVEL 98 MEQ/L (98-107); CK-MB VALUE MASS 2.9 NG/ML (<3.6); CPK CREATINE PHOSPHOKINASE 286 U/L (26-192); CREATININE FOR GFR 0.68 MG/DL (0.55-1.30); GLOMERULAR FILTRATION RATE > 60.0 (>60); GLUCOSE, FASTING 167 MG/DL (70-100); MAGNESIUM LEVEL 2.2 MG/DL (1.8-2.4); MB/CK RELATIVE INDEX 1.01 (< OR =4); POTASSIUM SERUM 3.7 MEQ/L (3.5-5.1); SODIUM LEVEL 137 MEQ/L (136-145)
[2019-06-21] MEDS ORDERED: METF-791 PO (19:15)
[2019-06-21 19:16] LABS: ETHYL ALCOHOL (ETHANOL) 0.194 % (0.000-0.010)
[2019-06-21] MEDS ORDERED: PATIENT COMMENT (19:17)
[2019-06-21] MEDS ORDERED: METAL LOCK LOOP XX ONE (19:19)
[2019-06-21 19:29] LABS: BASO # 0.1 10^3/uL (0.0-0.2); BASO % 0.5 % (0.0-1.0); EOS % 0.1 % (0.0-3.0); HEMATOCRIT 40.5 % (36.0-47.0); HEMOGLOBIN 13.3 g/dl (12.0-15.5); LYMPH # 0.9 10^3/uL (1.5-5.0); LYMPH % 8.7 % (24.0-44.0); MEAN CORPUSCULAR HEMOGLOBIN 32.2 pg (27.0-33.0); MEAN CORPUSCULAR HGB CONC 32.8 g/dl (32.0-36.5); MEAN CORPUSCULAR VOLUME 98.1 fl (80.0-96.0); MONO # 0.2 10^3/uL (0.0-0.8); MONO % 1.9 % (0.0-5.0); NEUTROPHILS # 8.8 10^3/uL (1.5-8.5); NEUTROPHILS % 87.9 % (36.0-66.0); PLATELET COUNT, AUTOMATED 137 10^3/uL (150-450); RED BLOOD COUNT 4.13 10^6/uL (4.00-5.40)
[2019-06-21] MEDS ORDERED: MIDAZOLAM INJ 5 MG/ML VIAL (J2250) IM ONE (19:30)
[2019-06-21] MEDS ORDERED: MIDAZOLAM INJ 2 MG/2 ML VIAL (J2250) IV STA (19:31)
[2019-06-21 19:39] LABS: INR 1.55; PARTIAL THROMBOPLASTIN TIME 42.4 SECONDS (25.0-38.4); PROTHROMBIN TIME 18.4 SECONDS (11.8-14.0)
[2019-06-21] MEDS ORDERED: SODIUM CHLORIDE 0.9% 1000ML IV STA (19:57)
[2019-06-21] MEDS: IPRATROPIUM 0.5MG/ALBUTEROL 2.5MG INH SOL UD 3ML (DUONEB)(J7620) NEB SCH (20:00)
[2019-06-21] MEDS ORDERED: SODIUM CHLORIDE 0.9% 1000ML IV SCH ×2 (20:00)
[2019-06-21] MEDS ORDERED: REFRIGERATOR IV KEYS XX PRN (20:15)
[2019-06-21] MEDS ORDERED: VANCOMYCIN HCL 1,000 MG, VIAL MATE ADAPTER 1 EACH in D5W 250 ML IV ONE (20:15)
[2019-06-21 20:19] LABS: AMYLASE 70 U/L (25-115); LIPASE 143 U/L (73-393)
[2019-06-21] MEDS ORDERED: SODIUM CHLORIDE 0.9% 1000ML IV ONE (20:30)
[2019-06-21] MEDS: MIDAZOLAM INJ 2 MG/2 ML VIAL (J2250) IV PRN ×2 (20:45→23:52)
[2019-06-21 20:50] LABS: AMPHETAMINES LEVEL URINE NEGATIVE (NEGATIVE); BARBITURATES URINE NEGATIVE (NEGATIVE); BENZODIAZEPINES URINE NEGATIVE (NEGATIVE); CANNABINOIDS URINE NEGATIVE (NEGATIVE); COCAINE METABOLITE URINE NEGATIVE (NEGATIVE); METHADONE URINE NEGATIVE (NEGATIVE); OPIATES URINE NEGATIVE (NEGATIVE); PHENCYCLIDINE URINE NEGATIVE (NEGATIVE)
[2019-06-21 21:02] LABS: CLOSTRIDIUM DIFFICILE PCR POSITIVE (NEGATIVE)
[2019-06-21] MEDS: MIDAZOLAM HCL 100 MG in D5W 80 ML IV SCH (21:07)
[2019-06-21 21:24] LABS: URINE PREG TEST NEGATIVE (NEGATIVE)
[2019-06-21] MEDS: FAMOTIDINE IV BAG 20 MG in IV 1 EA IV SCH (21:26)
[2019-06-21] MEDS: CHLORHEXIDINE GLUCONATE 0.12 % 15ML UDC (PERIDEX ORAL RINSE) MT SCH (21:26)
[2019-06-21] MEDS ORDERED: THIAMINE HCL 200 MG/2 ML VIAL (J3411) IV ONE (21:30)
[2019-06-21] MEDS ORDERED: GLUCOSE 4 GM CHEW TABLET PO PRN (21:45)
[2019-06-21] MEDS ORDERED: DEXTROSE 50% 50 ML SYRINGE IV PRN (21:45)
[2019-06-21] MEDS ORDERED: GLUCAGON FOR INJ 1 MG VIAL (J1610) SC PRN (21:45)
[2019-06-21 21:50] LABS: ABG BASE EXCESS -15.4 (-2.0-2.0); ABG O2 SATURATION 93.6 % (95.0-99.0); ABG PARTIAL PRESSURE CO2 28.1 mmHg (35.0-45.0); ABG PARTIAL PRESSURE O2 85.5 mmHg (75.0-100.0); ABG STANDARD HCO3 12.6 MEQ/L (22.0-26.0); ABG TOTAL CO2 11.8 MEQ/L (22.0-29.0)
--- NOTE | 2019-06-21 21:59 | ECHO ---
DATE OF PROCEDURE: 06/21/2019 REFERRING PHYSICIAN: Dr. Jorge L Rollins INDICATION: Status post cardiac arrest. HEIGHT: 5 feet 6 inches WEIGHT: 130 pounds 2D MEASUREMENTS: Proximal ascending aorta: 2.5 cm Left atrium: 2.3 cm Aortic root: 2.5 cm Ventricular septum: 1.05 cm Posterior wall: 0.97 cm Left ventricle diastole: 3.55 cm Inferior vena cava: 0.9 cm with much greater than 50% respiratory variation DOPPLER MEASUREMENTS: Aortic valve velocity: 89.6 cm/s LVOT velocity: 84.2 cm/s Mitral E velocity: 60.0 cm/s Mitral A velocity: 70.7 cm/s Mild tricuspid regurgitation. Estimated right ventricle systolic pressure: 24-29 mmHg assuming a right atrial pressure of 0-5 mmHg. Pulmonary acceleration time: 99 milliseconds MITRAL ANNULAR TISSUE DOPPLER: E prime lateral: 6.6 cm/s E prime septal: 6.2 cm/s DESCRIPTION: Rhythm was sinus tachycardia. This was a moderately technically difficult echocardiogram. This was a 2D, M-mode, color flow Doppler and pulse wave Doppler examination and included mitral annular tissue Doppler. CONCLUSIONS: 1. Hyperdynamic left ventricle systolic function. Left ventricular ejection fraction (LVEF) 75% by visual estimate. No regional wall motion abnormalities. Difficult to adequately assess left ventricular (LV) diastolic function in the setting of sinus tachycardia. 2. Normal right ventricle size and hyperdynamic systolic function. Suggestive of normal estimated right ventricle systolic pressure. Central venous pressure estimated to be 0-5 mmHg. 3. No pericardial effusion. 4. Structurally and functionally normal cardiac valves. Results of the study were relayed by cell phone to Dr. Jorge L Rollins at 9:32 p.m. on 06/21/2019.
[2019-06-21] MEDS ORDERED: FOLIC ACID 1 MG in NS 50 ML IV ONE (22:00)
[2019-06-21] MEDS ORDERED: SODIUM BICARBONATE 8.4% INJ 50 ML SYRINGE IV STA (22:34)
[2019-06-21 22:42] LABS: ALBUMIN 2.1 GM/DL (3.2-5.2); ALT/SGPT 535 U/L (12-78); BILIRUBIN,TOTAL 0.7 MG/DL (0.2-1.0); BLOOD UREA NITROGEN 6 MG/DL (7-18); CALCIUM LEVEL 7.1 MG/DL (8.5-10.1); CARBON DIOXIDE LEVEL 16 MEQ/L (21-32); CHLORIDE LEVEL 112 MEQ/L (98-107); CHOLESTEROL LEVEL 111 MG/DL (< 200); CPK CREATINE PHOSPHOKINASE 204 U/L (26-192); CREATININE FOR GFR 0.56 MG/DL (0.55-1.30); GLOMERULAR FILTRATION RATE > 60.0 (>60); GLUCOSE, FASTING 153 MG/DL (70-100); LDH LACTATE DEHYDROGENASE 1281 U/L (84-246); PHOSPHORUS LEVEL 4.5 MG/DL (2.5-4.9); POTASSIUM SERUM 2.8 MEQ/L (3.5-5.1); SODIUM LEVEL 146 MEQ/L (136-145); TOTAL PROTEIN 4.9 GM/DL (6.4-8.2); TRIGLYCERIDES LEVEL 69 MG/DL (<150)
[2019-06-21] MEDS: VANCOMYCIN HCL 1,000 MG, VIAL MATE ADAPTER 1 EACH in D5W 250 ML IV SCH (22:54)
[2019-06-21 22:56] LABS: MAGNESIUM LEVEL 1.3 MG/DL (1.8-2.4)
[2019-06-21] MEDS ORDERED: KCL 20MEQ IN 100ML SWI (KRUN) 20 MEQ in IV 1 EA IV ONE ×2 (23:00)
--- NOTE | 2019-06-21 23:02 | REP ---
CHEST, SINGLE VIEW: Portable supine film of the chest is performed. Endotracheal tube is seen with the tip 3.5 cm above the kia. Heart is not enlarged. There are diffuse bilateral infiltrates more so on the left superiorly than on the right. No other acute findings are seen. Electronically Signed by Lisandro Trujillo MD 06/22/2019 03:38 P
--- NOTE | 2019-06-21 23:14 | RO ---
DATE OF PROCEDURE: 06/21/2019 PREPROCEDURE DIAGNOSIS: Hypotension. POSTPROCEDURE DIAGNOSIS: Hypotension. PROCEDURE: Right internal jugular venous catheter, triple lumen SURGEON: Dr. Jorge L Rollins DIRECTOR OF FIELD COORDINATION: None ANESTHESIA: The patient had Versed prior to my arrival. Verbal consent obtained from the ; this was deemed urgent due to the severity of her illness. DESCRIPTION OF PROCEDURE: The right IJ was prepped and draped in a sterile manner. Chlorhexidine and full barrier sterile precautions were used. Time-out was performed confirming correct site, correct procedure. Right IJ was then accessed under ultrasound guidance on the first pass with a [id number] syringe. The estimated central venous pressure was less than 5. The IJ was fairly collapsed. A wire was fed through the needle, the needle was removed. Bradly in the skin was made and the triple-lumen catheter was placed via modified Seldinger technique. Wire was removed. All three ports returned venous blood flow and flushed easily. This was sutured in place at 15 cm. A sterile impregnated dressing was placed over the site. There were no observed complications. Postprocedure chest x-ray shows the tip of the catheter in the superior vena cava (SVC) without evidence of pneumothorax. MTDD
[2019-06-21] MEDS: HumaLOG INSULIN (NovoLOG) PER UNIT SC SCH (23:37)
[2019-06-21] MEDS: MEROPENEM INJ 1 GM in IV 1 EA IV SCH (23:37)
[2019-06-21] MEDS: KCL 40MEQ IN D5/0.45NS 1000ML 1,000 ML IV SCH (23:37)
[2019-06-21] MEDS: VANCOMYCIN ORAL SOL 250MG/5ML ORAL SYRINGE PO SCH (23:38)
--- NOTE | 2019-06-21 23:59 | CCN ---
DATE: 06/21/2019 History and physical Critical care time was 2 hours; this excludes all procedures. I was called to the emergency room for this patient who was found unresponsive. Apparently she was picking up her child and walking him home from the bus stop and then lost consciousness in front of the child. First responders came, automated external defibrillator (AED) was available but no recordable rhythms were available for review. Shocked the patient twice. IO was placed in the right leg. The patient presented to the emergency room with a [place] Coma Scale (GCS) of 8, not intubated, with vomitus around her mouth. I reviewed the chart for the majority of the history. The patient is a known diabetic, recent diagnosis due to severe pancreatitis with alcohol abuse. Alcohol level in the emergency room (ER) was 0.194. Her last hospitalization apparently was in April for diabetic ketoacidosis (DKA) thought to be secondary to colitis, was apparently sent home on Flagyl and Cipro. Flagyl remained on her incoming medication list. In February, she was admitted for pancreatitis. Right upper quadrant ultrasound at that point in time showed normal gallbladder, normal bile ducts, and it was thought that it was secondary to the alcohol abuse. On my arrival, the patient was slightly hypotensive, tachycardiac, tachypneic. Well, prior to my arrival, the ER physician gave the patient adenosine as the patient had supraventricular tachycardia (SVT). I placed a central line for my suspicion of probable underlying toxic metabolic cause of the cardiac arrest. The IJ was flat, estimated central venous pressure was 4. The patient remained tachycardiac, but in a sinus tachycardia and has sensed with occasional premature ventricular contractions (PVCs). The patient remained comatose but did move her legs. Does not appear that she has any seizure activity. Multiple imaging images were performed as outlined below. The patient was found with a large amount of stool, diarrhea. This was sent and already is positive for Clostridium difficile (C diff). The patient had a severe metabolic acidosis with a lactate of 8.6. After I place a central line, central venous oxygen saturation (O2 sat) was 75. The remainder of her tox screen was negative. On interviewing the , he states she is fairly healthy, does drink maybe every other day. Did not seem to indicate that the patient had a drinking problem. After I expressed that she had a positive alcohol level, he states that he thought she quit. He states she was happy, healthy this morning, had no fevers or chills, expressed no symptoms. He states she made him breakfast this morning prior to him going to work. PHYSICAL EXAM: Temperature 98.6, blood pressure 98/64, mean arterial pressure 75, oxygen saturation 92% on 0.80 FiO2. General: The patient is unresponsive on mechanical ventilation, occasionally moving extremities. HEENT: Pupils are approximately 8 mm bilaterally but reactive to light. There is no corneal reflex, and there is an abnormal oculocephalic reflex. The patient is hyperventilating with forced exhalation. Neck is supple. No tracheal deviation or mass. Right IJ is without erythema or exudate. Lymphs: No cervical, supraclavicular or axillary adenopathy. Cardiac: Tachycardiac, S1, S2 without audible murmur, rub or gallop. No elevated jugular venous pressure (JVP). No systemic edema. Pulmonary: Decreased breath sounds on the left, right is fairly clear. No rales, rhonchi or wheezes. No dullness to percussion. No accessory muscle use. Abdomen: Soft, nontender, nondistended. No hepatosplenomegaly. No masses or hernia. Extremities: No cyanosis, clubbing or edema. Extremities are cool. Peripheral pulses are present and symmetric. Neurologic: There is no myoclonus. Oculocephalic, corneal and pupillary exam as mentioned above. The patient does bring her arms to her midline, appears more purposeful than posturing but hard to tell. There is no evidence of seizure activity at this point in time. Musculoskeletal: No evidence of trauma. There was an IO in her left tibia. No signs of joint effusions. Laboratory evaluation shows a sodium of 137, potassium 3.7, chloride of 98, bicarbonate of 15, BUN of 6, creatinine of 0.68 with a glucose of 167, lactic acid is 8.6. CK was 286. Troponin was 0.8. Amylase, lipase that was added on later was 70 and 143 as part of my the workup. Procalcitonin pending. pH is 7.22, pCO2 of 33 and pAO2 of 61, ScvO2 is 75.6. White blood cell count is 10, which is up from 4.8 on her last visit. Her white blood cell count normally runs low. Hemoglobin is 13.3, hematocrit of 40.5, MCV is elevated at 98.1 suggesting possibly chronic vitamin deficiency, B12 or folate. Platelet count is 137 and low, consistent with chronic alcohol use. There is neutrophilia 88%. No evidence of bandemia. INR is 1.55, PT 18.4, PTT 42.4. Alcohol level of 0.194. The remainder of the urine tox screen is negative. Salicylates and Tylenol are pending as I ordered them; they were not ordered in the ER. Negative urine test. Positive Clostridium difficile toxin (C diff tox). Glucose of 186. Most recent chest x-ray shows that the central line is in adequate position with the tip in the superior vena cava (SVC). Lung santiago show some probable aspiration pneumonitis on the left greater than the right. Endotracheal tube is in good position. Cardiac silhouette appears normal. There is no effusion. No evidence of pneumothorax. On the first x-ray around 1720 hours, there was a question of a deep sulcus. Therefore, I removed the patient from the trauma board and re-imaged. However, there was no evidence of pneumothorax on the upright film that was done at 7:[address] shows no acute cervical spine fractures. Head CT shows no acute intracranial abnormality. Maxillofacial CT shows no acute fractures. CT scan of the abdomen on 04/30/2019 shows a thickened esophagus, hepatic steatosis and a 1.5 cm enhancing lesion in the pancreas with evidence of pancreatitis. EKG from 04/30/2019 shows a sinus tachycardia, normal axis. No ST abnormalities. No QRS prolongation. WA interval appears normal. Suggesting no intrinsic cardiac disease at that point in time that would cause electrolyte abnormalities. Initial EKG at 1708 hours shows a supraventricular tachycardia with a heart rate of 181. Repeat EKG at 1721 hours shows sinus tachycardia, nonspecific abnormalities with normal QRS. Normal axis. IMPRESSION: 1. Reported cardiac arrest, definite coma. Thought to be secondary to metabolic hypoperfusion. The patient has severe lactic acidosis, likely from Clostridium difficile infection. Given the fact that there is infiltrate on chest x-ray, cannot rule out pneumonia at this point in time. Will cover with oral vancomycin as this is preferred in severe Clostridium difficile infections.. Neurologic recovery is within question, and it is not clear that the patient has significant neurologic impairment, but the neurologic exam is not normal. This can be impaired by the toxic metabolic abnormalities, including alcohol intoxication and severe lactic acidosis. Will continue IV fluid hydration, vasopressor therapy if needed. Currently, however, the patient appears very dry with low estimated central venous pressures. 2. Possible pneumonia. Placed on IV antibiotics. Will de-escalate as soon as possible given the face of Clostridium difficile. 3. Diabetes. Will cover with sliding scale insulin unless the patient becomes more hypoglycemic, then will consider insulin drip. 4. Severe metabolic acidosis causing respiratory failure. 5. History of pancreatitis and pancreatic lesion. Currently without evidence of acute pancreatitis. Amylase and lipase are normal. Pancreatic lesion must be followed up. 6. Alcohol abuse. Versed was given as the patient is quite tachypneic, to help slow down the respiratory rate. She is likely tachypneic due to the severity of her acidosis. However, I believe this is impairing oxygenation along with ventilation. Thiamine and folate have been administered. The patient will need counseling. 7. Gastrointestinal (GI) prophylaxis with famotidine. In the face of Clostridium difficile, I did not want to use a proton pump inhibitor. 8. Deep vein thrombosis (DVT) prophylaxis with Lovenox. The patient has relative thrombocytopenia. Will continue to monitor for worsening thrombocytopenia. 9. Elevated MCV. Likely from folate or B12 deficiency. Most likely folate given alcohol use. The patient remains critically ill, has high risk of . [facility]
[2019-06-22] VITALS (81 sets, daily range): BP systolic 72–119; BP diastolic 46–69; O2SAT 98
[2019-06-22] MEDS ORDERED: CALCIUM GLUCONATE 1,000 MG in D5W MINI-BAG PLUS 100 ML IV ONE ×2
[2019-06-22] MEDS: MIDAZOLAM INJ 2 MG/2 ML VIAL (J2250) IV PRN ×7 (00:23→22:25)
[2019-06-22] MEDS ORDERED: NS 1,000 ML IV ONE ×2 (00:30→14:00)
[2019-06-22] MEDS ORDERED: MAG SULF 1GM/100ML (MAG RUN) 1 GM in IV 1 EA IV ONE ×2 (01:00→04:45)
[2019-06-22] MEDS ORDERED: KCL 20MEQ IN 100ML SWI (KRUN) 20 MEQ in IV 1 EA IV ONE ×4 (01:00→02:00)
[2019-06-22] MEDS: fentaNYL CITRATE 1,000 MCG in NS 80 ML IV SCH (02:21)
[2019-06-22] MEDS: NOREPINEPHRINE BITARTRATE 8 MG in D5W 492 ML IV SCH ×4 (02:22→12:41)
[2019-06-22 03:40] LABS: HEMATOCRIT 26.1 % (36.0-47.0); MEAN CORPUSCULAR HEMOGLOBIN 32.1 pg (27.0-33.0); MEAN CORPUSCULAR HGB CONC 32.6 g/dl (32.0-36.5); MEAN CORPUSCULAR VOLUME 98.5 fl (80.0-96.0); RED BLOOD COUNT 2.65 10^6/uL (4.00-5.40); WHITE BLOOD COUNT 7.9 10^3/uL (4.0-10.0)
[2019-06-22 04:20] LABS: ALBUMIN 1.9 GM/DL (3.2-5.2); ALT/SGPT 640 U/L (12-78); BILIRUBIN,TOTAL 0.9 MG/DL (0.2-1.0); BLOOD UREA NITROGEN 5 MG/DL (7-18); CALCIUM LEVEL 6.8 MG/DL (8.5-10.1); CARBON DIOXIDE LEVEL 20 MEQ/L (21-32); CHLORIDE LEVEL 117 MEQ/L (98-107); CREATININE FOR GFR 0.65 MG/DL (0.55-1.30); GLOMERULAR FILTRATION RATE > 60.0 (>60); GLUCOSE, FASTING 226 MG/DL (70-100); MAGNESIUM LEVEL 1.4 MG/DL (1.8-2.4); POTASSIUM SERUM 4.6 MEQ/L (3.5-5.1); SODIUM LEVEL 147 MEQ/L (136-145); TOTAL PROTEIN 4.5 GM/DL (6.4-8.2)
[2019-06-22 04:30] LABS: PLATELET COUNT, AUTOMATED 86 10^3/uL (150-450)
[2019-06-22 04:31] LABS: HEMOGLOBIN 8.5 g/dl (12.0-15.5)
[2019-06-22 05:04] LABS: ACETAMINOPHEN LEVEL < 2.0 UG/ML (10.0-30.0); SALICYLATE LEVEL < 1.7 MG/DL (5.0-30.0)
[2019-06-22] MEDS: HumaLOG INSULIN (NovoLOG) PER UNIT SC SCH ×5 (05:36→20:11)
[2019-06-22] MEDS: VANCOMYCIN ORAL SOL 250MG/5ML ORAL SYRINGE PO SCH ×3 (05:36→18:10)
[2019-06-22 06:16] LABS: ABG BASE EXCESS -7.6 (-2.0-2.0); ABG HCO3 16.1 MEQ/L (22.0-26.0); ABG O2 SATURATION 99.1 % (95.0-99.0); ABG PARTIAL PRESSURE CO2 26.7 mmHg (35.0-45.0); ABG PARTIAL PRESSURE O2 199.8 mmHg (75.0-100.0); ABG STANDARD HCO3 18.2 MEQ/L (22.0-26.0); ABG TOTAL CO2 16.9 MEQ/L (22.0-29.0); ABG pH (ARTERIAL) 7.397 UNITS (7.350-7.450)
[2019-06-22] MEDS: IPRATROPIUM 0.5MG/ALBUTEROL 2.5MG INH SOL UD 3ML (DUONEB)(J7620) NEB SCH ×4 (07:25→19:53)
--- NOTE | 2019-06-22 08:03 | REP ---
CHEST, SINGLE VIEW: Single view of the chest is performed. Comparison made with prior exam of the same day. Previously noted bilateral infiltrates have improved with mild residual. There is no pneumothorax. The heart is normal in size. The mediastinal silhouette is unremarkable. Endotracheal tube is again seen with the tip at the level of the clavicles. Nasogastric tube traverses into the stomach. Electronically Signed by Lisandro Trujillo MD 06/22/2019 03:40 P
[2019-06-22 08:08] LABS: ALBUMIN 2.1 GM/DL (3.2-5.2); ALT/SGPT 738 U/L (12-78); BILIRUBIN,TOTAL 0.9 MG/DL (0.2-1.0); BLOOD UREA NITROGEN 5 MG/DL (7-18); CALCIUM LEVEL 7.1 MG/DL (8.5-10.1); CARBON DIOXIDE LEVEL 20 MEQ/L (21-32); CHLORIDE LEVEL 114 MEQ/L (98-107); CHOLESTEROL LEVEL 93 MG/DL (< 200); CPK CREATINE PHOSPHOKINASE 210 U/L (26-192); CREATININE FOR GFR 0.88 MG/DL (0.55-1.30); GLOMERULAR FILTRATION RATE > 60.0 (>60); GLUCOSE, FASTING 318 MG/DL (70-100); LDH LACTATE DEHYDROGENASE 1295 U/L (84-246); PHOSPHORUS LEVEL 1.4 MG/DL (2.5-4.9); SODIUM LEVEL 143 MEQ/L (136-145); TOTAL PROTEIN 4.8 GM/DL (6.4-8.2); TRIGLYCERIDES LEVEL 60 MG/DL (<150)
[2019-06-22] MEDS: CHLORHEXIDINE GLUCONATE 0.12 % 15ML UDC (PERIDEX ORAL RINSE) MT SCH ×2 (08:55→20:10)
[2019-06-22] MEDS: ENOXAPARIN 40 MG/0.4 ML SYRINGE (J1650) SC SCH (08:55)
[2019-06-22] MEDS: MEROPENEM INJ 1 GM in IV 1 EA IV SCH ×2 (08:57→16:39)
[2019-06-22] MEDS: KCL 40MEQ IN D5/0.45NS 1000ML 1,000 ML IV SCH (08:58)
[2019-06-22] MEDS: FAMOTIDINE IV BAG 20 MG in IV 1 EA IV SCH ×2 (08:58→20:11)
[2019-06-22] MEDS ORDERED: NEUTRA-PHOS 1.5 GM PACKET PO SCH (09:00)
[2019-06-22] MEDS ORDERED: FOLIC ACID 1 MG TAB PO SCH (09:00)
--- NOTE | 2019-06-22 09:07 | REP ---
CHEST, PORTABLE: AP portable view of the chest is performed and compared to prior exam of the same day. There is insertion of a right central venous catheter. The tip is in the superior vena cava. There is no pneumothorax. Endotracheal tube is again seen with the tip at the level of the clavicles. Nasogastric tube is seen with side port in the body of the stomach. Heart is normal in size. There are diffuse bilateral infiltrates unchanged. Lateral aspect of the left lung is not visualized on this image. Electronically Signed by Lisandro Trujillo MD 06/22/2019 03:41 P
--- NOTE | 2019-06-22 09:09 | REP ---
CHEST, PORTABLE: AP portable view of the chest is performed. Comparison 06/21/2019. Right central venous catheter, endotracheal tube and nasogastric tube do not appear to have changed in position. Heart remains normal in size. There are again bilateral infiltrates noted. The left upper lobe infiltrate appears somewhat improved with no definite change in the remaining lung zones. Electronically Signed by Lisandro Trujillo MD 06/22/2019 03:41 P
[2019-06-22] MEDS ORDERED: DEXTROSE 50% 50 ML SYRINGE IV PRN (09:15)
[2019-06-22] MEDS ORDERED: GLUCAGON FOR INJ 1 MG VIAL (J1610) SC PRN (09:15)
[2019-06-22] MEDS ORDERED: GLUCOSE 4 GM CHEW TABLET PO PRN (09:15)
[2019-06-22] MEDS: VANCOMYCIN HCL 1,000 MG, VIAL MATE ADAPTER 1 EACH in D5W 250 ML IV SCH ×2 (10:14→21:13)
--- NOTE | 2019-06-22 11:53 | CCN ---
DATE: 06/22/2019 The patient was seen and examined this morning during bedside rounds. The patient has remained on Levophed for vasopressor support at 14 mcg per minute. Overnight patient has been febrile with a T-max of 102.2. She continues to be tachycardic as well and mildly tachypneic. Patient is sedated, but with the sedation vacation earlier in the morning was able to follow commands somewhat intermittently. PHYSICAL EXAMINATION: T-max 102.2, pulse 133, respiratory rate 30, blood pressure is 90/56, O2 sat 98% on 50% FiO2. Ins 1.3 liters, out 1.5 liters. Patient received 9 liters yesterday. General: Patient is intubated and sedated on mechanical ventilation. Is intermittently following commands. HEENT is normocephalic. Pupils were reactive to light bilaterally. Neck is supple. Trachea is midline. Right IJ in place. No palpable cervical adenopathy. Cardiac is regular rate and rhythm. Tachycardic. Normal S1-S2. Unable to appreciate any murmurs. Pulmonary: Coarse ventilator breath sounds auscultated bilaterally with no significant wheezing, rales or rhonchi. There is some decreased breath sounds at the left base. Abdomen is mildly distended, is soft and tender to palpation. Patient is grimacing with mild palpation. Extremities: There is no lower extremity edema bilaterally. LABORATORIES: WBC 7.9, hemoglobin trending down to 8.5 and platelets 86. Chemistries: Sodium is 143, potassium 5.0, chloride is 114, bicarb 20, BUN 5, creatinine 0.88, glucose is 318, lactic acid trending down to 3.5, calcium 7.1, phos 1.4, AST 2694, ALT 738, CPK 210. ABG pH of 7.397, pCO2 of 28.7, pO2 of 199.8. Microbiology: Blood cultures pending. C. difficile positive. IMAGING STUDIES: Chest x-ray shows ET tube in place, right IJ line in place and an OG tube coursing below the diaphragm. There are some faint infiltrates noted on the left more than the right with some mild improvement in the left upper lobe. ASSESSMENT/PLAN: Ms. León is a 34-year-old female with a past medical history of diabetes, recent admission with diabetic ketoacidosis (DKA) and pancreatitis likely in the setting of alcohol abuse who presented with possible respiratory and cardiac arrest. Patient with septic shock, on vasopressors. Patient is currently intubated and sedated. Appears to be following commands this morning, although intermittently and still on sedation. 1. Neurologic. patient is status post possible cardiac arrest and respiratory arrest requiring intubation. She had a depressed mental status initially on admission to the ED and was intubated at that time. She had imaging done on her admission including a head CT and cervical spine CT, which did not show any acute intracranial abnormalities or cervical spine fractures. This morning the patient appears to be following commands although somewhat intermittently and is still on sedation. - Would continue to monitor her neurologic status and neurologic exam, but suspect she likely does not have significant anoxic injury currently. - Continue with a sedation while intubated with Versed and fentanyl. The patient does have a history of alcohol abuse and she will likely require the benzodiazepines to prevent withdrawal with her history of alcohol abuse. - Continue with daily sedation vacation as tolerated. - Continue with thiamine and folate for supplementation in the setting of her alcohol abuse. 2. Cardiovascular. Patient had presented with out of hospital possible cardiac arrest. She reportedly had an AID that shocked her twice when first responders arrived. In the ED she appeared to be in SVT which may have been confused for a possible VT by the AID. She apparently had pulse on presentation to the ED and a blood pressure although she was hypotensive in shock. The patient likely with septic shock secondary to C. difficile colitis requiring vasopressors for blood pressure support - Her echocardiogram on admission showed a normal EF, no significant valvular disease. Suspect an acute cardiac event less likely. Patient more likely had arrythmia in setting of metabolic acidosis from sepsis and respiratory failue - Continue with vasopressors with Levophed to maintain a MAP above 65. The patient has a right IJ in place 3. Pulmonary. The patient reportedly had evidence of vomitus on presentation to the ED and her chest x-ray showed likely aspiration with possible pneumonia. She was intubated for her mental status and respiratory distress likely due to her severe metabolic acidosis on presentation from her septic shock. - Continue with mechanical ventilation, will change her to PRVC with settings of 400/18/45/5. We weaned her PEEP down from 8 to 5 and continue to wean down her FiO2 as tolerated to maintain O2 sat above 90% - Continue with IV antibiotics for possible pneumonia. Will followup her procalcitonin and will attempt to de-escalate as soon as possible given her acute C. difficile infection. - Continue with daily ABGs and chest x-rays while intubated. - Continue with vent bundle with head of bed elevation and chlorhexidine mouthwash. 4. ID. Patient presented with septic shock, likely secondary to C. difficile colitis She did have evidence of colitis on her previous CT abdomen and pelvis. Patient had a positive C. difficile toxin on admission. Patient also had possible aspiration pneumonia on admission as well. - Continue with IV meropenem and vancomycin for aspiration pneumonia. - Will followup procalcitonin and will continue to de-escalate the IV antibiotics as tolerated. - Continue with PO vancomycin for C diff with contact precautions. - Followup results of blood cultures. 5. GI: The patient has a history of pancreatitis in the setting of alcohol abuse and a pancreatic lesion. She had normal amylase and lipase on admission. - Will continue to monitor. She does have some evidence on exam of abdominal tenderness and mild distension although the abdomen appears soft. - Would continue to monitor with serial abdominal exams and if worsening would repeat imaging of her abdomen to monitor for possible perforation. - Continue to trend her lactic acidosis. - Will hold tube feeds for now given abdominal distension and tenderness. - Will start free water flushes via OG tube. 6. Renal. The patient presented with metabolic acidosis in the setting of lactic acidosis which is trending down. Will continue to monitor her repeat lactic acid. - Patient also had hypokalemia initially. Was started on IV fluids with potassium with some mild hyperkalemia today. The patient was also started on D5 but she is hyperglycemic and has not been getting sliding scale coverage currently. - Would DC her D5 potassium fluids and continue with the free water flushes through her OG tube. - Will start her on sliding scale insulin coverage and she may require insulin drip if persistently hyperglycemic given her history of diabetes and DKA. - Will continue to monitor her electrolytes and replete as needed. She does have some mild hypophosphatemia on labs this morning. Will followup a repeat BMP later in the morning. - Continue to monitor renal function and ins and outs via Swain. 7. Heme. The patient with elevated MCV likely from folate or B12 deficiency. She is on folate supplementation currently. She was noted to be more anemic this morning with hemoglobin of 8.5. Her last hemoglobin on her previous admission was 12. The patient is also more thrombocytopenic likely in the setting of her severe infection and also possibly from medication side effect. - Will continue to closely monitor her hemoglobin and hematocrit and platelets. If she continues to trend down she may require repeat imaging of her abdomen as well as possible transfusion. Will get an active type and screen. Continue with Lovenox for deep vein thrombosis (DVT) prophylaxis. Will hold if platelets or hemoglobin continue to trend down. FULL CODE. Total critical care time spent, not including any procedures, approximately 45 minutes. VARGASD
[2019-06-22] MEDS: THIAMINE HCL 200 MG/2 ML VIAL (J3411) IV SCH (11:58)
[2019-06-22] MEDS: MULTIVITAMIN/MINERALS LIQUID 15ML ORAL SYRINGE NG SCH (11:58)
[2019-06-22 12:56] LABS: HEMOGLOBIN 8.3 g/dl (12.0-15.5); MEAN CORPUSCULAR HEMOGLOBIN 32.7 pg (27.0-33.0); MEAN CORPUSCULAR HGB CONC 33.2 g/dl (32.0-36.5); MEAN CORPUSCULAR VOLUME 98.4 fl (80.0-96.0); PLATELET COUNT, AUTOMATED 105 10^3/uL (150-450); RED BLOOD COUNT 2.54 10^6/uL (4.00-5.40); WHITE BLOOD COUNT 15.6 10^3/uL (4.0-10.0)
[2019-06-22] MEDS: MIDAZOLAM HCL 100 MG in D5W 80 ML IV SCH (13:11)
[2019-06-22 13:36] LABS: BLOOD UREA NITROGEN 5 MG/DL (7-18); CALCIUM LEVEL 6.9 MG/DL (8.5-10.1); CARBON DIOXIDE LEVEL 23 MEQ/L (21-32); CHLORIDE LEVEL 111 MEQ/L (98-107); CREATININE FOR GFR 0.82 MG/DL (0.55-1.30); GLOMERULAR FILTRATION RATE > 60.0 (>60); GLUCOSE, FASTING 295 MG/DL (70-100); PHOSPHORUS LEVEL 1.9 MG/DL (2.5-4.9); POTASSIUM SERUM 4.4 MEQ/L (3.5-5.1); SODIUM LEVEL 142 MEQ/L (136-145)
--- NOTE | 2019-06-22 15:01 | REP ---
ABDOMINAL SERIES: Supine and erect views of the abdomen demonstrate no free air. There are mildly dilated small bowel loops in the left abdomen. There is air in the right colon. The findings probably represent a mild ileus. Nasogastric tube is seen with sideport in the body of the stomach. An accompanying view of the chest demonstrates no change when compared to the prior chest radiograph earlier today with right central venous catheter, endotracheal tube, and nasogastric tube again noted. Bilateral infiltrates are stable. Electronically Signed by Lisandro Trujillo MD 06/22/2019 05:19 P
[2019-06-22] MEDS: NEUTRA-PHOS 1.5 GM PACKET NG SCH (20:11)
[2019-06-23] VITALS (41 sets, daily range): BP systolic 87–137; BP diastolic 50–75; O2SAT 100
[2019-06-23] MEDS: MIDAZOLAM INJ 2 MG/2 ML VIAL (J2250) IV PRN ×3 (00:23→12:07)
[2019-06-23] MEDS: VANCOMYCIN ORAL SOL 250MG/5ML ORAL SYRINGE PO SCH ×4 (00:24→17:07)
[2019-06-23] MEDS: HumaLOG INSULIN (NovoLOG) PER UNIT SC SCH ×5 (00:24→17:07)
[2019-06-23] MEDS: MEROPENEM INJ 1 GM in IV 1 EA IV SCH ×3 (00:24→15:14)
[2019-06-23] MEDS: fentaNYL 100 MCG/2 ML INJECTION (J3010) IV PRN ×2 (00:31→11:37)
[2019-06-23] MEDS: fentaNYL CITRATE 1,000 MCG in NS 80 ML IV SCH (02:34)
[2019-06-23] MEDS: NOREPINEPHRINE BITARTRATE 8 MG in D5W 492 ML IV SCH (04:00)
[2019-06-23 05:40] LABS: MEAN CORPUSCULAR HEMOGLOBIN 32.5 pg (27.0-33.0); MEAN CORPUSCULAR HGB CONC 33.3 g/dl (32.0-36.5); MEAN CORPUSCULAR VOLUME 97.6 fl (80.0-96.0); RED BLOOD COUNT 2.06 10^6/uL (4.00-5.40); WHITE BLOOD COUNT 11.5 10^3/uL (4.0-10.0)
[2019-06-23 05:41] LABS: HEMOGLOBIN 6.7 g/dl (12.0-15.5); PLATELET COUNT, AUTOMATED 85 10^3/uL (150-450)
[2019-06-23 05:42] LABS: HEMATOCRIT 20.1 % (36.0-47.0)
[2019-06-23 05:43] LABS: ABG BASE EXCESS -0.4 (-2.0-2.0); ABG HCO3 22.8 MEQ/L (22.0-26.0); ABG O2 SATURATION 98.6 % (95.0-99.0); ABG PARTIAL PRESSURE CO2 30.5 mmHg (35.0-45.0); ABG PARTIAL PRESSURE O2 124.9 mmHg (75.0-100.0); ABG STANDARD HCO3 24.2 MEQ/L (22.0-26.0); ABG TOTAL CO2 23.7 MEQ/L (22.0-29.0); ABG pH (ARTERIAL) 7.491 UNITS (7.350-7.450)
[2019-06-23] MEDS: MIDAZOLAM HCL 100 MG in D5W 80 ML IV SCH ×2 (06:02→21:13)
[2019-06-23 06:04] LABS: ALBUMIN 1.9 GM/DL (3.2-5.2); ALT/SGPT 519 U/L (12-78); BILIRUBIN,TOTAL 0.6 MG/DL (0.2-1.0); BLOOD UREA NITROGEN 4 MG/DL (7-18); CARBON DIOXIDE LEVEL 28 MEQ/L (21-32); CHLORIDE LEVEL 109 MEQ/L (98-107); CHOLESTEROL LEVEL 80 MG/DL (< 200); CPK CREATINE PHOSPHOKINASE 368 U/L (26-192); CREATININE FOR GFR 0.47 MG/DL (0.55-1.30); GLOMERULAR FILTRATION RATE > 60.0 (>60); GLUCOSE, FASTING 134 MG/DL (70-100); LDH LACTATE DEHYDROGENASE 413 U/L (84-246); MAGNESIUM LEVEL 1.5 MG/DL (1.8-2.4); PHOSPHORUS LEVEL 2.1 MG/DL (2.5-4.9); POTASSIUM SERUM 3.5 MEQ/L (3.5-5.1); SODIUM LEVEL 142 MEQ/L (136-145); TOTAL PROTEIN 4.4 GM/DL (6.4-8.2); TRIGLYCERIDES LEVEL 60 MG/DL (<150)
[2019-06-23] MEDS ORDERED: MAG SULF 1GM/100ML (MAG RUN) 1 GM in IV 1 EA IV ONE (06:30)
[2019-06-23] MEDS ORDERED: ISOVUE-370 76% 100ML VIAL (Q9967) As Ordered ONE (06:42)
[2019-06-23] MEDS: IPRATROPIUM 0.5MG/ALBUTEROL 2.5MG INH SOL UD 3ML (DUONEB)(J7620) NEB SCH ×4 (07:50→19:50)
[2019-06-23] MEDS: KCL 20MEQ IN 100ML SWI (KRUN) 20 MEQ in IV 1 EA IV SCH ×4 (07:58→10:08)
[2019-06-23] MEDS: FOLIC ACID 1 MG TAB NG SCH (08:03)
[2019-06-23] MEDS: CHLORHEXIDINE GLUCONATE 0.12 % 15ML UDC (PERIDEX ORAL RINSE) MT SCH ×2 (08:03→21:10)
[2019-06-23] MEDS: MULTIVITAMIN/MINERALS LIQUID 15ML ORAL SYRINGE NG SCH (08:03)
[2019-06-23] MEDS: NEUTRA-PHOS 1.5 GM PACKET NG SCH ×2 (08:03→21:11)
[2019-06-23] MEDS: FAMOTIDINE IV BAG 20 MG in IV 1 EA IV SCH ×2 (08:03→21:10)
[2019-06-23] MEDS: THIAMINE HCL 200 MG/2 ML VIAL (J3411) IV SCH (08:04)
[2019-06-23] MEDS ORDERED: MVI -ADULT INJECTION 10 ML VIAL IV SCH (09:00)
[2019-06-23] MEDS: ENOXAPARIN 40 MG/0.4 ML SYRINGE (J1650) SC SCH (09:00)
--- NOTE | 2019-06-23 09:51 | REP ---
CHEST, SINGLE VIEW: Single view of the chest is performed. There are bibasilar infiltrates which appear similar to the prior study. The heart is not enlarged. Right central venous catheter, endotracheal tube, and nasogastric tube have not definitely changed. IMPRESSION: Stable exam. Electronically Signed by Lisandro Trujillo MD 06/23/2019 12:27 P
[2019-06-23] MEDS: VANCOMYCIN HCL 1,000 MG, VIAL MATE ADAPTER 1 EACH in D5W 250 ML IV SCH (10:00)
--- NOTE | 2019-06-23 10:05 | REP ---
CT ABDOMEN/PELVIS WITH IV CONTRAST: TECHNIQUE: Axial contrast enhanced images from the lung bases to the pubic symphysis using 100 mL Isovue 370 intravenous contrast material with multiplanar reformations. In the visualized lung bases, there are small effusions with bibasilar atelectasis/infiltrate. At the dome of the liver, there is a large subcapsular fluid collection. This measures approximately 6 x 9 x 9 cm. There appears to be fluid extending into the parenchyma of the left lobe of the liver measuring about 5 x 2 cm. Abscess is not excluded, although no air is seen in the fluid collection. There is a hypoechoic area in the left lobe of the liver near the gallbladder fossa, which is stable compared to prior studies. Gallbladder grossly unremarkable. Spleen is normal in size with no intrinsic abnormality. Adrenal glands are normal. In the tail of the pancreas, there is an exophytic mass again seen, which is unchanged 1.7 cm in diameter. Kidneys demonstrate no hydronephrosis or mass. Abdominal aorta is normal in caliber with no aneurysm. There is no adenopathy. There is no free air. There is moderate abdominal and pelvic ascites. There is mild dilatation of small bowel loops in the left abdomen, which may represent an ileus. Catheter seen in the rectum. Swain catheter seen in the bladder. Nasogastric tube is seen with distal end in the stomach. IMPRESSION: Large subcapsular fluid collection at the dome of the liver appears to extend into the left lobe of the liver, as discussed above. Abscess is not excluded, although no air is seen within the collection. There is moderate abdominal and pelvic ascites. Small bilateral effusions with bibasilar atelectasis/infiltrate. Exophytic mass in the tail of the pancreas again noted. Electronically Signed by Lisandro Trujillo MD 06/23/2019 12:29 P
[2019-06-23] MEDS: metroNIDAZOLE 500 MG in IV 1 EA IV SCH ×2 (11:53→18:02)
[2019-06-23 13:55] LABS: HEMATOCRIT 24.2 % (36.0-47.0); MEAN CORPUSCULAR HEMOGLOBIN 32.1 pg (27.0-33.0); MEAN CORPUSCULAR HGB CONC 33.1 g/dl (32.0-36.5); MEAN CORPUSCULAR VOLUME 97.2 fl (80.0-96.0); RED BLOOD COUNT 2.49 10^6/uL (4.00-5.40); WHITE BLOOD COUNT 12.5 10^3/uL (4.0-10.0)
[2019-06-23 14:01] LABS: PLATELET COUNT, AUTOMATED 79 10^3/uL (150-450)
[2019-06-23 14:02] LABS: INR 1.36; PROTHROMBIN TIME 16.5 SECONDS (11.8-14.0)
[2019-06-23 14:03] LABS: PARTIAL THROMBOPLASTIN TIME 31.8 SECONDS (25.0-38.4)
[2019-06-23 14:16] LABS: BLOOD UREA NITROGEN 4 MG/DL (7-18); CALCIUM LEVEL 6.7 MG/DL (8.5-10.1); CARBON DIOXIDE LEVEL 26 MEQ/L (21-32); CHLORIDE LEVEL 110 MEQ/L (98-107); CREATININE FOR GFR 0.57 MG/DL (0.55-1.30); GLOMERULAR FILTRATION RATE > 60.0 (>60); GLUCOSE, FASTING 131 MG/DL (70-100); POTASSIUM SERUM 3.8 MEQ/L (3.5-5.1); SODIUM LEVEL 141 MEQ/L (136-145)
--- NOTE | 2019-06-23 15:30 | CCN ---
DATE: 06/23/2019 Patient was seen and examined this morning during bedside rounds. Overnight, the patient was able to be weaned off of Levophed and was maintaining a blood pressure with a mean arterial pressure (MAP) over 65. She continued to have fevers overnight with a maximum temperature (T-max) of 101.1. Patient is sedated, but is easily arousable and able to follow commands appropriately. She continues to be tachycardic as well as occasionally tachypneic on the ventilator. This morning, patient's hemoglobin was noted to have continued to trend down. She was consented for transfusion of 1 unit of packed red blood cells (PRBC) as well as 1 unit of platelets. Patient also had a CT abdomen and pelvis done urgently this morning. PHYSICAL EXAMINATION: Temperature T-max 101.1, pulse 116-120s, respirations 18, blood pressure 100/53, oxygen saturation 98% on 35% FiO2. INPUT AND OUTPUT: In 4.8 liters, out 5.6 liters. GENERAL: Patient is intubated and sedated on mechanical ventilation. Is arousable and following commands appropriately. Denies any pain currently. HEENT: She is normocephalic. Pupils reactive to light bilaterally. Neck is supple. Trachea is midline. Right internal jugular (IJ) triple lumen is in place. There is no palpable cervical adenopathy. CARDIAC: Tachycardic. Regular rate and rhythm. Normal S1, S2. Unable to appreciate murmurs. PULMONARY: Coarse ventilated breath sounds bilaterally with diminished breath sounds at the bases, but no significant wheezing or rales or rhonchi. ABDOMEN: Mildly distended. Appears improved from previous. It is soft, with some mild tenderness in the right upper quadrant area, although the patient appears less tender to palpation on exam than she did yesterday. Hypoactive bowel sounds. EXTREMITIES: There is no lower extremity edema noted bilaterally. LABORATORY DATA: WBC 11.5, hemoglobin trending down to 6.7, platelets 85. CHEMISTRY: Sodium 142, potassium 3.5, chloride 109, bicarbonate 28, BUN 5, creatinine 0.47, glucose is 134, lactic acid 1.5, phosphorus 2.1. Total bilirubin 1.5, AST, ALT trending down. Procalcitonin increased to 15.55. Arterial blood gas (ABG) pH 7.491, pCO2 of 30.5, pO2 of 124.9. IMAGING STUDIES: Chest x-ray this morning shows endotracheal (ET) tube in place. Right IJ triple lumen in place tip in superior vena cava (SVC). Orogastric (OG) tube coursing below the diaphragm. There are some faint bibasilar opacities and blunting of the costophrenic angles suggesting small bilateral effusions. Abdominal x-ray from 06/22/2019 showed mildly dilated small bowel loops in the left abdomen and air in the right colon representing a mild ileus. There is no evidence of free air below the diaphragm. CT abdomen and pelvis 06/23/2019 showed a large subcapsular fluid collection at the dome of the liver appearing to extend into the left lobe of the liver measuring 6 x 9 x 9 cm with the extension into the parenchyma of the left lobe of liver measuring about 5 x 2 cm. There is no air seen in the fluid collection. There is a hypoechoic area in the left lobe of the liver near the gallbladder fossa which is unchanged compared to her previous CT abdomen and pelvis. Adrenal glands are normal. In the tail of the pancreas there is an exophytic mass seen again, which is unchanged at 1.7 cm. There is no free air in the abdomen. No significant adenopathy. There is moderate abdominal and pelvic ascites and mild dilation of the small bowel loops in the left abdomen, which may represent an ileus. In the bases of the lung there are small bilateral effusions with bibasilar atelectasis/infiltrate. ASSESSMENT AND PLAN: Ms. León is a 34-year female with a past medical history of diabetes, recent admission with diabetic ketoacidosis (DKA) and pancreatitis likely in setting of alcohol abuse, who presented now with a possible cardiac arrest and a respiratory arrest. Patient was intubated and started on mechanical ventilation. She was also in septic shock requiring vasopressors, which have now been weaned off. NEUROLOGIC: Patient is status post possible cardiac arrest and a respiratory arrest requiring intubation and mechanical ventilation. She had imaging on admission including a head CT and cervical spine CT which did not show any acute intracranial abnormalities or cervical signs of fractures. Patient is sedated, but more responsive and is easily arousable and able to follow commands appropriately. She does have some periods of agitation still. - Continue sedation while intubated with Versed and fentanyl for analgesia. Patient does have a history of alcohol abuse and she will likely require benzodiazepines even after extubation to prevent withdrawal, given her history of alcohol abuse. - Continue with thiamine and folate and multivitamin supplementation in the setting of her alcohol abuse. - Continue with daily sedation vacation and weaning trials as tolerated. CARDIOVASCULAR: Patient had presented with an out of hospital questionable cardiac arrest and collapse. She had received reportedly two shocks by an AID from the first responders. In the emergency department (ED), she appear to be in supraventricular tachycardia (SVT), which may have been confused for possible ventricular tachycardia (VT) by the AID. She did have a pulse on presentation the ED and a blood pressure, although hypotensive. Patient was in septic shock on admission requiring Levophed support, thought to be secondary to Clostridium (C) difficile colitis. Patient has since been weaned off of Levophed and her blood pressures have remained stable since 10:00 p.m. yesterday evening. - Patient's lactic acidosis and had initially increased yesterday and she was given a bolus of fluids. Her repeat lactic acid has normalized. - Patient's echocardiogram on admission showed normal ejection fraction (EF) with no significant valvular disease. Suspect an acute cardiac event less likely for her presentation. Patient may have had arrhythmias in the setting of her severe metabolic acidosis from sepsis and respiratory failure. - Will continue with monitoring blood pressures to maintain a MAP above 65. Patient has a right IJ in place still. - Patient does have evidence of some small bilateral pleural effusions. She has received aggressive fluid hydration and she may require some gentle diuresis if her blood pressure is able tolerate to optimize her for weaning from the ventilator. PULMONARY: Patient was intubated for altered mental status and respiratory failure. She also had suspicion of likely aspiration and possible aspiration pneumonia and she had presented with vomitus on admission to the ED. - Continue with mechanical ventilation with PRVC at settings of 400/18/35 and 5. - Continue daily ABGs and chest x-rays while intubated. - Continue with vent bundle with head of bed elevation and chlorhexidine mouthwash. - Patient was on intravenous (IV) vancomycin and meropenem for possible aspiration pneumonia. Her methicillin-resistant Staphylococcus aureus (MRSA) screen was negative; therefore will discontinue the IV vancomycin and continue with meropenem. INFECTIOUS DISEASE (ID): Patient presented with septic shock, likely secondary to Clostridium (C) difficile colitis. She did have some evidence of colitis on her previous CT abdomen and pelvis and her Clostridium (C) difficile toxin was positive on admission. Patient also had concern for possible aspiration pneumonia as well with bilateral infiltrates noted. On the CT abdomen and pelvis, in the lower lobes there is bilateral effusions and infiltrates/atelectasis. - Will continue with IV meropenem for possible aspiration pneumonia and discontinue her IV vancomycin as her MRSA screen was negative. - Patient continues to have fevers despite being on broad-spectrum antibiotics. Her procalcitonin initially was negative and her repeat procalcitonin has significantly increased to 15.55. Will continue with oral vancomycin, but will also add IV Flagyl to treat for the her Clostridium (C) difficile as well as for concern of possible intra-abdominal infection. Her CT abdomen and pelvis showed a large fluid collection in the liver in the subcapsular region, which is likely hematoma, but an abscess or infected fluid collection is also possible. - Will followup results of her blood cultures. GASTROINTESTINAL (GI): Patient has a history of pancreatitis in the setting of alcohol abuse as well as a previously noted pancreatic lesion. She presented with normal amylase and lipase on this admission, but did have a significantly elevated liver function tests (LFTs), which have been trending down. Patient was noted yesterday to have abdominal distension and tenderness, as well as some increasing lactic acidosis. She had an abdominal x-ray done, which did not show any evidence of free air but did show some ileus. Her tube feeds were discontinued yesterday given evidence of distension and some ileus. Patient has not had any bowel movements and continues to have hypoactive bowel sounds present. - Patient was also noted have decreasing hemoglobin and hematocrit (H and H). She had a CT abdomen and pelvis done for evaluation for source of potential bleed. On the CT she was noted to have a large subcapsular fluid collection in her liver, as well as some moderate ascites. There was no evidence of air, although possible infected fluid collection or abscess was possible. Suspect with her decreasing H and H that she likely had a hematoma and subcapsular bleed in her liver. As her blood pressures have improved and her lactic acid has also normalized, suspect that she does not have continued active bleeding, but that it has tamponaded on his own. - Patient was ordered for 1 unit PRBC and 1 unit of platelet transfusion. Will continue to monitor her H and H and will repeat her coagulations and fibrinogen. - Surgery was consulted, although will likely not have any surgical intervention, as it appears the bleeding has stabilized. Will continue to monitor with serial abdominal exams and appreciate surgery consult. - Continue with OG tube to low intermittent suction and continue the patient on nothing by mouth. RENAL: Patient had presented with metabolic acidosis in the setting of her severe sepsis with lactic acidosis. The acidosis has improved and her lactic acid has normalized. - Patient has hypokalemia and hypophosphatemia. Will monitor and replete electrolytes as needed. She was also given magnesium supplementation today. Will continue to replete electrolytes aggressively, given her ileus. - Would hold IV fluids for now, but will continue to monitor and patient may be started on maintenance fluids with D5 half normal saline (NS). - Continue with sliding scale coverage and fingerstick glucose checks as needed. Will change her to every 6 hours. - Continue to monitor her input and output via Swain. - Continue to monitor renal function and avoid nephrotoxins as possible. HEMATOLOGIC: Patient with anemia and elevated MCV, likely from folate or B12 deficiency. She does have a history of alcohol abuse and so more likely from her folate deficiency. Patient has also been thrombocytopenic on this admission, likely in the setting of her infection, possibly also from medication side effects or from her history of alcohol abuse. - Patient's H and H has been trending down. She appears to have a possible hematoma in her liver. Will transfuse 1 unit of PRBC and 1 unit of platelets and continue to monitor H and H. Will keep an active type and screen. - Continue with folate and supplementation. - Will check her coagulations as well as a fibrinogen. DVT PROPHYLAXIS: Patient was on Lovenox. Would hold for now given her possible bleeding. Will start thromboembolitic deterrents (TEDs) and sequentials. FULL CODE. Total critical care time spent not including procedures approximately 45 minutes.
[2019-06-23] MEDS ORDERED: POTASSIUM PHOSPHATE INJ 15 MMOL in D5W 250 ML IV ONE (18:00)
[2019-06-24] VITALS (27 sets, daily range): BP systolic 82–126; BP diastolic 50–86; O2SAT 100
[2019-06-24] MEDS: MEROPENEM INJ 1 GM in IV 1 EA IV SCH ×4 (00:39→23:55)
[2019-06-24] MEDS: HumaLOG INSULIN (NovoLOG) PER UNIT SC SCH ×4 (00:39→18:00)
[2019-06-24] MEDS: VANCOMYCIN ORAL SOL 250MG/5ML ORAL SYRINGE PO SCH ×5 (00:39→23:55)
[2019-06-24] MEDS: metroNIDAZOLE 500 MG in IV 1 EA IV SCH ×3 (04:05→18:40)
[2019-06-24] MEDS: fentaNYL CITRATE 1,000 MCG in NS 80 ML IV SCH (04:26)
[2019-06-24 04:35] LABS: HEMATOCRIT 21.3 % (36.0-47.0); HEMOGLOBIN 7.1 g/dl (12.0-15.5); MEAN CORPUSCULAR HEMOGLOBIN 32.1 pg (27.0-33.0); MEAN CORPUSCULAR HGB CONC 33.3 g/dl (32.0-36.5); MEAN CORPUSCULAR VOLUME 96.4 fl (80.0-96.0); RED BLOOD COUNT 2.21 10^6/uL (4.00-5.40); WHITE BLOOD COUNT 8.9 10^3/uL (4.0-10.0)
[2019-06-24 04:36] LABS: PLATELET COUNT, AUTOMATED 88 10^3/uL (150-450)
[2019-06-24 05:03] LABS: BLOOD UREA NITROGEN 5 MG/DL (7-18); CALCIUM LEVEL 7.1 MG/DL (8.5-10.1); CARBON DIOXIDE LEVEL 27 MEQ/L (21-32); CHLORIDE LEVEL 111 MEQ/L (98-107); CREATININE FOR GFR 0.43 MG/DL (0.55-1.30); GLOMERULAR FILTRATION RATE > 60.0 (>60); GLUCOSE, FASTING 107 MG/DL (70-100); PHOSPHORUS LEVEL 2.2 MG/DL (2.5-4.9); POTASSIUM SERUM 3.5 MEQ/L (3.5-5.1); SODIUM LEVEL 143 MEQ/L (136-145)
[2019-06-24 05:04] LABS: ALBUMIN 1.8 GM/DL (3.2-5.2); ALT/SGPT 380 U/L (12-78); BILIRUBIN,TOTAL 0.7 MG/DL (0.2-1.0); CHOLESTEROL LEVEL 79 MG/DL (< 200); CPK CREATINE PHOSPHOKINASE 496 U/L (26-192); LDH LACTATE DEHYDROGENASE 291 U/L (84-246); MAGNESIUM LEVEL 2.2 MG/DL (1.8-2.4); TOTAL PROTEIN 4.7 GM/DL (6.4-8.2); TRIGLYCERIDES LEVEL 59 MG/DL (<150)
[2019-06-24 05:25] LABS: ABG BASE EXCESS -1.6 (-2.0-2.0); ABG HCO3 21.7 MEQ/L (22.0-26.0); ABG O2 SATURATION 98.6 % (95.0-99.0); ABG PARTIAL PRESSURE CO2 30.9 mmHg (35.0-45.0); ABG PARTIAL PRESSURE O2 130.9 mmHg (75.0-100.0); ABG STANDARD HCO3 23.1 MEQ/L (22.0-26.0); ABG TOTAL CO2 22.7 MEQ/L (22.0-29.0); ABG pH (ARTERIAL) 7.465 UNITS (7.350-7.450)
[2019-06-24] MEDS ORDERED: FUROSEMIDE 20 MG/2 ML VIAL (J1940) IV ONE (08:15)
[2019-06-24] MEDS: IPRATROPIUM 0.5MG/ALBUTEROL 2.5MG INH SOL UD 3ML (DUONEB)(J7620) NEB SCH ×4 (08:30→20:06)
[2019-06-24] MEDS: FOLIC ACID 1 MG TAB NG SCH (08:52)
[2019-06-24] MEDS: CHLORHEXIDINE GLUCONATE 0.12 % 15ML UDC (PERIDEX ORAL RINSE) MT SCH ×2 (08:52→20:57)
[2019-06-24] MEDS: NEUTRA-PHOS 1.5 GM PACKET NG SCH ×2 (08:52→20:58)
[2019-06-24] MEDS: MULTIVITAMIN/MINERALS LIQUID 15ML ORAL SYRINGE NG SCH (08:52)
[2019-06-24] MEDS: THIAMINE HCL 200 MG/2 ML VIAL (J3411) IV SCH (08:53)
[2019-06-24] MEDS: chlordiazePOXIDE 25 MG CAP PO SCH ×4 (09:00→20:57)
[2019-06-24] MEDS: FAMOTIDINE IV BAG 20 MG in IV 1 EA IV SCH ×2 (09:37→20:58)
[2019-06-24] MEDS ORDERED: POTASSIUM PHOSPHATE INJ 18 MMOL in D5W 250 ML IV ONE (10:00)
--- NOTE | 2019-06-24 11:19 | CR ---
DATE OF CONSULTATION: 06/24/2019 REASON FOR CONSULTATION: Liver hematoma. HISTORY OF PRESENT ILLNESS: The patient is a 34-year-old female who came into the hospital on 06/21/2019. She had a cardiac arrest, as well as history of alcoholism. She was nonresponsive, hypotensive, tachycardiac in the emergency room (ER) and was intubated and transferred to the intensive care unit (ICU). She has been treated for possible pneumonia, possible aspiration pneumonia, and recent cardiac arrest by the youth liaison officer. Due to the hypotension, they ended up getting a CT of the abdomen yesterday, which showed a subcapsular liver hematoma. She has been given a few units of blood so far, and she stabilized and is off of pressors; but due to the large size of the hematoma, I was asked to evaluate in case she does need any type of intervention. She is still currently intubated. However, sedation is off, and she is awake and alert, responding to all commands. She denies any pain right now any where in her body. I was able to press on her abdomen. She denied feeling any tenderness when I pressed on there. No complaints at this time other than the fact that she still has the tube in her throat. PAST MEDICAL HISTORY AND SURGICAL HISTORY: Obtained from the chart. She had a history of alcohol abuse, pancreatitis, diabetes, pneumonia. PAST SURGICAL HISTORY: Unknown at this time. ALLERGIES: None. MEDICATIONS: Please see medical record. SOCIAL HISTORY: Drinks alcohol daily. She was intoxicated on admission. REVIEW OF SYSTEMS: Unable to obtain at this time. PHYSICAL EXAMINATION: General: The patient is awake and alert. Vital signs: Temperature 100.1, pulse 109, respirations 18, pulse oximetry 100% on ventilator. HEENT: Pupils equally round and react to light and accommodation. Heart: S1, S2, slightly tachycardic. Lungs: Clear to auscultation bilaterally. Abdomen: Soft, distended, nontender, no rebound or rigidity. Extremities: No clubbing, cyanosis, or edema. Neurologic: She is able to move all four extremities spontaneously. There is good muscle strength, is equal bilaterally. LABORATORIES: White count 8.9, hemoglobin 7.1, platelets 88, potassium 3.5, alkaline phosphatase 88, AST 366, ALT 380. IMAGING: CT abdomen and pelvis shows large subcapsular fluid collection at the dome of the liver extending into the left lobe of the liver. ASSESSMENT AND PLAN: The patient is a 34-year female, status post cardiac arrest and fall, currently with subcapsular liver hematoma likely secondary to the traumatic fall. At this time, it appears to be stable. Her hemoglobin has dropped from yesterday to today. However, she is off of pressors. Vital signs are all stable, and she has no more abdominal pains. She likely bled over the last couple of days. It stopped yesterday. I believe the laboratories are just lagging behind. I feel that a transfusion today will likely bring it back up and keep it up. As far as the abdominal distention, likely secondary to the ileus from all the trauma to her body. Will monitor that closely. She may require nasogastric (NG) tube placement even after extubation but will talk to her once she is awake and see how she is feeling and go from there and plan to slowly advance diet as tolerated. I have already discussed her case with vascular, who would be unable to do any type of angio for the liver. If she does show signs of continued bleeding, I will talk to interventional radiology this afternoon, as well, to see what their capabilities are; and if she does show signs of continued bleeding over the next few days, if we are unable to handle that here, we may need to transfer her out for a liver angiogram. Thank you for consult. I will follow the patient with you.
--- NOTE | 2019-06-24 11:21 | CCN ---
DATE: 06/24/2019 CRITICAL PROGRESS NOTE: The patient was seen and examined this morning during bedside rounds. The patient's blood pressure continues to remain stable off of Levophed, although mean arterial pressures (MAP) are on the lower side. She has been afebrile overnight, but she has been on a cooling blanket and earlier this morning the patient did have a low grade temperature of 100.2. The patient is on Versed for sedation and fentanyl drip for analgesia on the ventilator, but she is awake, alert and following commands appropriately. The patient is status post 1 unit of packed red blood cells (PRBC) yesterday and 1 unit of platelets. She was ordered for another unit of PRBC earlier this morning. The patient was placed on a weaning trial on the ventilator this morning. The patient has not had any bowel movements still. The patient did have an episode yesterday of mucus plugging requiring bag ventilation and lavage with clearance of a thick burns mucus. This morning however, she has not had any significant mucus suctioned or reportedly suction overnight. PHYSICAL EXAMINATION: Temperature 99.9, pulse 107, respirations 18, blood pressure 95/44, oxygen saturation 100% on 30% FiO2. Ins 2.4 liters, out 2.6 liters. General: The patient is intubated and sedated on mechanical ventilator. She is arousable and following commands appropriately. Denies any pain currently. HEENT: Normocephalic. Pupils are reactive to light bilaterally. Neck is supple. Trachea is midline. Right internal jugular (IJ) triple lumen is in place. There is no palpable cervical adenopathy. Cardiac: Tachycardiac, regular rate and rhythm. Normal S1 and S2, unable to appreciate murmurs. Pulmonary: Coarse ventilated breath sounds bilaterally with decreased breath sounds at the bases but no wheezing, rales or rhonchi. Abdomen is tympanic but distension appears improved from previous. It is soft with no tenderness in the right upper quadrant. There are hypoactive bowel sounds. Extremities: There is no lower extremity edema noted bilaterally. LABORATORY DATA: WBC 8.9, hemoglobin 7.1, platelets 88. Chemistry: Sodium is 143, potassium 3.5, chloride 111, bicarbonate 27, BUN 5, creatinine 0.43, glucose is 107, calcium 7.1, phosphatase 2.2, magnesium 2.2. AST, ALT trending down to 366 and 380. ABG pH 7.465, pCO2 of 30.9, pO2 of 130.9. ASSESSMENT/PLAN: The patient is a 34-year female with a history of diabetes, recent admission with diabetic ketoacidosis (DKA) ands pancreatitis likely in setting of alcohol abuse who presented with cardiac and respiratory arrest. The patient was intubated and started on mechanical ventilation and admitted to the intensive care unit (ICU). She was also initially in septic shock requiring vasopressors, which have been weaned off for the past few days now. Neurologic: The patient is status post cardiac arrest and respiratory arrest requiring intubation and mechanical ventilation. She had imaging on admission with head CT and cervical spine CT which did not show any acute intracranial abnormalities or cervical fractures. She is sedated but is responsive and following commands appropriately. - The patient is on Versed drip while intubated and fentanyl for analgesia. - The patient had a sedation vacation this morning as she was placed on a weaning trial. She was somewhat agitated but redirectable. - The patient will be discontinued from a fentanyl drip and Versed drip after extubation. Will continue with fentanyl as needed for analgesia and the patient will be started on clinical institute withdrawal assessment for alcohol (CIWA) protocol with Librium standing and as needed Ativan to monitor for alcohol withdrawal given her history of alcohol abuse. - Continue with thiamine, folate and multivitamin supplementation given her history of alcohol abuse. Cardiovascular: The patient had presented as an out of hospital cardiac arrest with a collapse. She had received two shocks by an aid as well as cardiopulmonary resuscitation (CPR) and one dose of epinephrine before achieving return of spontaneous circulation (ROSC) in the field. The patient was intubated on presentation to the emergency department (ED) as she was having agonal breathing and still unresponsive. She did require pressors on admission for likely septic shock thought to be secondary to Clostridium (C) difficile colitis or also possible aspiration pneumonia. - The patient's lactic acidosis has normalized and she has been off of Levophed for the past 2 days. The patient's blood pressure has remained stable although on the lower side. - Will continue to monitor her blood pressures to maintain a mean arterial pressure (MAP) above 65. The patient has a right IJ line in place from 06/21/2019. - The patient does have evidence on her CT abdomen and pelvis of small bilateral effusions. She did receive very aggressive fluid hydration initially. Will give her Lasix 10 mg IV for diuresis to help optimize for extubation from the ventilator. Pulmonary: The patient was intubated for respiratory failure and altered mental status. The patient also had likely aspiration pneumonia as well in the setting of her arrest and some vomitus. - The patient was on pressure regulated volume control (PRVC) at settings of 400/18/75 and 8. - The patient was placed on a weaning trial this morning, which she tolerated. She was mildly agitated and did become slightly tachycardic and tachypneic but continued to have good tidal volumes and did not have any desaturation. The patient was therefore extubated to an aerosol mask for oxygen supplementation at 35% FiO2, which she is tolerating. - Will continue to wean down the patient's oxygen supplementation as tolerated to maintain oxygen saturation above 90%. - Continue the patient on meropenem for aspiration pneumonia. Her IV vancomycin was discontinued as her MRSA screen was negative. Infectious Disease (ID): The patient presented with septic shock likely secondary to C diff colitis. There was also some suspicion of aspiration pneumonia as well given evidence of bilateral infiltrates and vomiting prior to her admission. - The patient was continued on IV meropenem for her aspiration pneumonia. Her IV vancomycin was discontinued as her MRSA screen was negative. - The patient's initial procalcitonin was negative and a repeat procalcitonin had trended up significantly to 15.55. She also continued to have fevers despite being on broad-spectrum antibiotics. She was added IV Flagyl yesterday and continued on oral vancomycin. With the additional antibiotics her white count has improved and her fever curve has also improved. Some of the patient's fever may have also been in the setting of large fluid collection in her liver, which is likely a hematoma but an abscess or infected fluid collection is also possible. There did not appear to be air in the fluid. - The patient was attempted to have a sputum culture sent, although she has not had any significant suctioning, so it has not been sent. Her blood cultures results are no growth to date. Gastrointestinal (GI): The patient has a history of pancreatitis in setting of alcohol abuse as well as a previously noted pancreatic lesion. The patient had a normal amylase and lipase on this admission but did have significant transaminitis. The patient was noted to have decreasing hemoglobin/hematocrit (H/H) as well as abdominal distension and tenderness. She had a CT abdomen and pelvis done, which did show a large subcapsular fluid collection in her liver as well as some moderate ascites. There is no evidence of air, although a possible infected fluid collection or abscess is possible suspected it is most likely due to a hematoma and bleed. As her blood pressures have improved and her lactic acid has normalized, suspect that she does not have active bleeding but that it has tamponade on its own. - The patient's transaminitis has also trended down. Her repeat H/H after 1 unit of PRBC and 1 unit of platelet did show an appropriate response, although earlier this morning her hemoglobin has trended down again. The patient's platelet count did not change after the 1 unit of platelet transfusion. - Will give another unit of PRBC today and continue to monitor her H/H. The patient's international normalized ratio (INR) and fibrinogen yesterday was acceptable. - Appreciate surgery consult and recommendations. - The patient also has evidence of ileus on imaging and has not had any bowel movements. She had an orogastric (OG) tube to low intermittent suction and was on nothing by mouth. After extubation will monitor the patient and if she has any evidence of nausea or vomiting will place an NG tube at that time, otherwise will continue on nothing by mouth for today with possibility of starting some clear liquids if tolerated. Renal: The patient presented with severe sepsis with lactic acidosis and metabolic acidosis. Her acidosis has improved and her lactic acid has normalized. - The patient continues to have electrolyte abnormalities requiring repletion. She has been hypokalemic and hypophosphatemic during this admission as well as hypomagnesemic. Will continue the patient replete electrolytes aggressively given her ileus and continue to monitor. - The patient was given a dose of Lasix 10 mg IV to help with some evidence of third spacing and bilateral effusions. Will continue to monitor her ins and outs via Swain. - Continue with fingerstick glucose checks and sliding scale coverage as needed. Heme: The patient with anemia and elevated mean corpuscular volume (MCV) likely from folate or B12 deficiency in the setting of her alcohol abuse also. The patient has also been thrombocytopenic on this admission likely in the setting of her infection, also possibly from alcohol abuse and her medication side effect. - The patient was noted to have decreasing hemoglobin and was found to have a possible hematoma in her liver. She is status post 1 unit of PRBC and 1 unit pf platelets yesterday, but her H/H did continue to trend down this morning. Will give her an additional 1 unit of PRBC and continue to monitor. - Continue with folate supplementation. - Will keep active type and screen. Deep venous thrombosis (DVT) prophylaxis. Thromboembolic deterrent (HENRRY) and sequentials. FULL CODE. Total critical care time spent not including procedures approximately 45 minutes.
[2019-06-24] MEDS: KCL 20MEQ IN 100ML SWI (KRUN) 20 MEQ in IV 1 EA IV SCH ×4 (11:28→12:25)
--- NOTE | 2019-06-24 11:29 | REP ---
Clinical: Respiratory failure. Comparison: 06/23/2019. Findings: Endotracheal tube 3 cm above the kia. Nasogastric tube courses below left hemidiaphragm. Right IJ line with tip in the SVC. Left lower lobe/retrocardiac infiltrate. No obvious effusion. No pneumothorax. Skeletal structures intact. Impression: 1. Lines and tubes in satisfactory stable position. 2. Left lower lobe infiltrate. Electronically Signed by Fam Hui MD 06/24/2019 11:20 A
[2019-06-24] MEDS: MIDAZOLAM INJ 2 MG/2 ML VIAL (J2250) IV PRN (16:30)
[2019-06-24] MEDS: LORazepam 2 MG TAB PO PRN ×2 (16:37→23:55)
[2019-06-24] MEDS: fentaNYL 100 MCG/2 ML INJECTION (J3010) IV PRN ×2 (17:41→21:28)
[2019-06-24 18:34] LABS: HEMATOCRIT 29.6 % (36.0-47.0); HEMOGLOBIN 9.8 g/dl (12.0-15.5); MEAN CORPUSCULAR HEMOGLOBIN 31.6 pg (27.0-33.0); MEAN CORPUSCULAR HGB CONC 33.1 g/dl (32.0-36.5); MEAN CORPUSCULAR VOLUME 95.5 fl (80.0-96.0); PLATELET COUNT, AUTOMATED 112 10^3/uL (150-450); WHITE BLOOD COUNT 10.8 10^3/uL (4.0-10.0)
[2019-06-24] MEDS: LORazepam 2 MG/ML VIAL (J2060) IV PRN (20:15)
[2019-06-25] VITALS (19 sets, daily range): BP systolic 94–116; BP diastolic 56–76
[2019-06-25] MEDS: LORazepam 2 MG/ML VIAL (J2060) IV PRN ×3 (00:28→20:22)
[2019-06-25] MEDS: chlordiazePOXIDE 25 MG CAP PO SCH ×2 (00:56→05:45)
[2019-06-25] MEDS: metroNIDAZOLE 500 MG in IV 1 EA IV SCH ×3 (03:29→18:35)
[2019-06-25] MEDS: fentaNYL 100 MCG/2 ML INJECTION (J3010) IV PRN ×2 (03:31→07:55)
[2019-06-25 04:26] LABS: HEMOGLOBIN 10.2 g/dl (12.0-15.5); MEAN CORPUSCULAR HEMOGLOBIN 31.7 pg (27.0-33.0); MEAN CORPUSCULAR HGB CONC 32.9 g/dl (32.0-36.5); MEAN CORPUSCULAR VOLUME 96.3 fl (80.0-96.0); PLATELET COUNT, AUTOMATED 126 10^3/uL (150-450); RED BLOOD COUNT 3.22 10^6/uL (4.00-5.40); WHITE BLOOD COUNT 11.7 10^3/uL (4.0-10.0)
[2019-06-25 05:03] LABS: ALBUMIN 2.4 GM/DL (3.2-5.2); ALT/SGPT 332 U/L (12-78); BLOOD UREA NITROGEN 6 MG/DL (7-18); CALCIUM LEVEL 7.9 MG/DL (8.5-10.1); CARBON DIOXIDE LEVEL 23 MEQ/L (21-32); CHLORIDE LEVEL 106 MEQ/L (98-107); CHOLESTEROL LEVEL 103 MG/DL (< 200); CPK CREATINE PHOSPHOKINASE 1531 U/L (26-192); CREATININE FOR GFR 0.45 MG/DL (0.55-1.30); GLOMERULAR FILTRATION RATE > 60.0 (>60); GLUCOSE, FASTING 129 MG/DL (70-100); LDH LACTATE DEHYDROGENASE 344 U/L (84-246); PHOSPHORUS LEVEL 1.5 MG/DL (2.5-4.9); POTASSIUM SERUM 3.9 MEQ/L (3.5-5.1); SODIUM LEVEL 138 MEQ/L (136-145); TOTAL PROTEIN 6.1 GM/DL (6.4-8.2); TRIGLYCERIDES LEVEL 55 MG/DL (<150)
[2019-06-25] MEDS: HumaLOG INSULIN (NovoLOG) PER UNIT SC SCH ×4 (05:45→17:56)
[2019-06-25] MEDS: VANCOMYCIN ORAL SOL 250MG/5ML ORAL SYRINGE PO SCH ×3 (05:45→17:57)
[2019-06-25] MEDS: MEROPENEM INJ 1 GM in IV 1 EA IV SCH ×2 (07:30→16:29)
[2019-06-25] MEDS: IPRATROPIUM 0.5MG/ALBUTEROL 2.5MG INH SOL UD 3ML (DUONEB)(J7620) NEB SCH ×4 (07:58→19:18)
[2019-06-25] MEDS: FAMOTIDINE IV BAG 20 MG in IV 1 EA IV SCH (08:16)
[2019-06-25] MEDS: NEUTRA-PHOS 1.5 GM PACKET NG SCH (08:18)
[2019-06-25] MEDS: FOLIC ACID 1 MG TAB NG SCH (08:18)
[2019-06-25] MEDS: MULTIVITAMIN/MINERALS LIQUID 15ML ORAL SYRINGE NG SCH (08:20)
[2019-06-25] MEDS: THIAMINE HCL 200 MG/2 ML VIAL (J3411) IV SCH (08:22)
[2019-06-25] MEDS: CHLORHEXIDINE GLUCONATE 0.12 % 15ML UDC (PERIDEX ORAL RINSE) MT SCH ×2 (08:22→20:21)
[2019-06-25] MEDS ORDERED: FAMOTIDINE 20 MG TAB PO SCH (09:00)
[2019-06-25] MEDS: LORazepam 2 MG TAB PO PRN ×2 (09:51→16:49)
[2019-06-25] MEDS: oxyCODONE 5MG TAB PO PRN ×2 (12:10→17:57)
[2019-06-25] MEDS ORDERED: SODIUM PHOSPHATE INJ 30 MMOL in D5W 500 ML IV ONE (13:00)
--- NOTE | 2019-06-25 13:10 | CCN ---
DATE OF SERVICE: 06/25/2019 The patient was seen and examined this morning during rounds. Yesterday, the patient was extubated and did well being weaned down to nasal cannula oxygen supplementation. This morning, she does report some discomfort in her chest and her back but denies any significant abdominal pain. She has some nausea but no vomiting, and she does report that she has been passing some gas, although has not had a bowel movement still. The patient is asking for things to drink and has been complaining of some mild hunger. The patient was started on Librium protocol for alcohol withdrawal and Clinical [place] Withdrawal Assessment (CIWA) protocol. She has required some as needed Ativan for periods of agitation intermittently during the day. She was also placed on a one-to-one yesterday afternoon for her agitation. The patient is intermittently delirious. This morning, she states that she is in a hospital but in [facility] and not in [facility], and she reports the date is some time in April. The patient denies any shortness of breath. She does have some cough occasionally productive of mucus. Has not had any fevers or chills overnight. PHYSICAL EXAMINATION: Temperature 98.6, pulse 113, respirations 20, blood pressure 114/69, oxygen (O2) saturation 98% on 2 liters nasal cannula. Intake 1.2 liters, output 4.5 liters. General: The patient is awake and alert. Is alert and oriented times one, occasionally two. She is able to answer questions appropriately. HEENT: Normocephalic, atraumatic. Pupils are reactive to light bilaterally. Right internal jugular (vein) (IJ) triple lumen is in place. There is no palpable cervical adenopathy. Cardiac: Tachycardiac, regular rate and rhythm. Normal S1, S2. Unable to appreciate murmurs. Pulmonary: There are some mild decreased breath sounds at the bases but no significant wheezing, rales, or rhonchi. Abdomen is mildly distended but is soft and nontender. There are hypoactive bowel sounds present. Extremities: There is no lower extremity edema noted bilaterally. The patient does not have any significant tremors currently. LABORATORIES: WBC 11.7, hemoglobin 10.2, platelets 126. Chemistry: Sodium is 138, potassium 3.9, chloride is 106, bicarbonate is 23, BUN 6, creatinine 0.45, glucose is 129, phos 1.2, magnesium 2.0, CPK of 1531. ASSESSMENT AND PLAN: The patient is a 34-year-old female with history of diabetes with recent admission with diabetic ketoacidosis (DKA) and pancreatitis, likely in the setting of alcohol abuse, who presented with cardiac and respiratory arrest. The patient was intubated and started on mechanical ventilation and admitted to the intensive care unit (ICU). She was also initially in septic shock, requiring vasopressors which she has been weaned off for the past few days now. Neurologic: The patient was extubated on 06/24/2019. She was started on CIWA protocol and Librium for alcohol withdrawal. She was noted to have a positive blood alcohol level on her admission on 06/21/2019. - The patient does have episodes of delirium intermittently and agitation but has been tolerating the Librium, as well as Ativan as needed, for withdrawal. - Continue monitoring CIWA score every 4 hours and continue with the every 4 hour Librium for now with tapering to the every 6 and further tapering doses as tolerated. - Continue with Ativan as needed as per the CIWA protocol. - Continue with one-to-one for agitation. - Continue with thiamine, folate, multivitamin supplementation given her history of alcohol abuse. Cardiovascular: The patient had presented as an [id number] cardiac arrest and collapse. She did receive two shocks by an AID, as well as cardiopulmonary resuscitation (CPR) and one dose of epinephrine before achieving ROSC in the field. She was intubated on presentation to the emergency department (ED) and started on mechanical ventilation. The patient did require pressors on admission for likely septic shock though to be secondary to Clostridium (C) difficile colitis and possible aspiration pneumonia. - The patient has been off of Levophed for the past few days, and blood pressure has remained stable. - The patient has a right IJ triple lumen in place from 06/25/2019. Will get additional intravenous (IV) access and then discontinue her triple lumen. - The patient was given Lasix yesterday for diuresis, which she did diurese very well. Would hold off on further diuretics at this time. - The patient's initial echocardiogram showed a normal ejection fraction (EF) and no significant valvular pathology. Suspect her cardiac arrest was likely in the setting of metabolic derangements and possible respiratory failure. Pulmonary. The patient was intubated for respiratory failure and altered mental status. She also had likely aspiration pneumonia in the setting of vomiting and respiratory arrest. - The patient was extubated yesterday and weaned down to nasal cannula oxygen supplementation. - Continue weaning down nasal cannula oxygen as tolerated. Would start her on incentive spirometer and get her out of bed to chair as tolerated. - The patient is on meropenem for her aspiration pneumonia. IV vancomycin was discontinued as her methicillin-resistant Staphylococcus aureus (MRSA) screen was negative. Will repeat her procalcitonin to help determine de-escalation of her meropenem to possible oral antibiotics. Infectious disease (ID). The patient presented with septic shock, likely secondary to C. difficile colitis and aspiration pneumonia. - The patient is on IV meropenem for aspiration pneumonia and Flagyl and by mouth vancomycin for her C. difficile. The patient's procalcitonin was elevated 3 days ago at 15.55. It had trended up significantly from her admission. Would repeat her procalcitonin as her fever and leukocytosis has improved to pickler helper with de-escalation of her antibiotics. She would need a 2-week course of by mouth vancomycin for her C. difficile but may be able to discontinue the Flagyl and transition her to oral antibiotics for her pneumonia. Gastrointestinal (GI). The patient has a history of pancreatitis in the setting of alcohol abuse, as well as a previously-noted pancreatic lesion. She had normal amylase and lipase on this admission but did have some transaminitis. - The patient had a CT abdomen and pelvis done, which showed a large subcapsular fluid collection in her liver, as well as some moderate ascites. There was suspicion that this is likely a hematoma and bleeding as she did have decreasing hemoglobin and hematocrit, as well. - The patient is status post 2 units of packed red blood cells (PRBC) and 1 unit platelet with an appropriate response her hemoglobin, and her blood pressure has been stable. Appreciate surgery consult and recommendation but will likely not need any active intervention as it appears the bleeding has tamponaded and is not ongoing. - The patient is status post Lasix for diuresis given the ascites and bilateral pleural effusion. Would hold off on further diuretics at this time. - The patient also had evidence of ileus on imaging and has not had any bowel movement, but she is reporting passing gas currently. Will advance her diet to clear liquids today and continue to advance as tolerated. If she has any evidence of nausea or vomiting, will place nasogastric (NG) tube at that time. Renal. The patient initially presented with lactic acidosis secondary to septic shock with severe metabolic acidosis, which has all improved. - The patient does continue to have some electrolyte abnormalities requiring repletion, such as hypophosphatemia, and previously had been hypokalemic, as well. Will continue to monitor electrolytes and replete as needed. - Continue with Neutra-Phos packets, increased to three times a day. - Will discontinue the patient's Swain and perform a trial of void today. - Continue with fingerstick glucose checks and sliding-scale coverage as needed. Would likely transition to long-acting insulin when she is able to tolerate a diet more. Heme. The patient with anemia and elevated MCV likely in the setting of folate or B12 deficiency in the setting of her alcohol abuse. The patient also had thrombocytopenia on admission likely in the setting of her infection and possibly from medication side effect, which has been improving. - She is status post 2 units PRBC and 1 unit of platelets with her hemoglobin and hematocrit maintaining currently. - Continue with folate supplementation. deep venous thrombosis (DVT) prophylaxis. Thromboembolic deterrents (TEDs) and sequential compression devices (SCDs). Would likely start Lovenox once she has not had any further evidence of bleeding. FULL CODE. Total critical care time spent not including procedures approximately 40 minutes. The patient has been signed out to the hospitalist service earlier this morning. [facility]ITALShreya
[2019-06-25] MEDS ORDERED: NEUTRA-PHOS 1.5 GM PACKET NG SCH (16:00)
--- NOTE | 2019-06-25 16:34 | IPNPDOC ---
Subjective Date Seen The patient was seen on 06/25/19. Subjective Chief Complaint/HPI Patient is pleasant and calm at present but confused . She did know she know that she wa [facility] and could tell me the name. However she thinks it is February and she was visiting her sister in law in [place] and had a couple of drinks with her. When i said that is was May and asker what is the last thing that she remembers before becoming sick she says that her was in drills and she was feeling sick so she lay down in her home. She does complain of some cough and chest pain. Objective Physical Examination General Exam: Positive: Alert, Cooperative, No Acute Distress Eye Exam: Positive: PERRLA (5 mm equal reacting to light.), Conjunctiva & lids normal, EOMI; Negative: Sclera icteric ENT Exam: Positive: Atraumatic, Mucous membr. moist/pink, Pharynx Normal Neck Exam: Positive: Supple; Negative: JVD, thyromegaly Chest Exam: Positive: Clear to auscultation, Normal air movement Heart Exam: Positive: Rate Normal, Regular Rhythm, Normal S1, Normal S2; Negative: Murmurs, Rubs Telemetry: Positive: No significant arrhythmia Abdomen Exam: Positive: BS Hypoactive, Soft, Tenderness (all over on deep palpation) Extremity Exam: Negative: Clubbing, Cyanosis, Edema Skin Exam: Positive: Nl turgor and temperature; Negative: Rash, Breakdown Neuro Exam: Positive: Normal Speech, Strength at 5/5 X4 ext, Normal Tone Psych Exam: Positive: Other (oriented x2 to place and person. ) Assessment /Plan Assessment 34 year old female with alcohol abuse , severe pancreatitis , diabetes from pancreatitis collapsed on the street while she was walking her son home from the school bus stop. First responders arrived and started resuscitation. AED shocked her twice in the field. ROSC achieved in field. She had vomited in the field. When she was brought to the ED she was not intubated, had a GCS of 8 and had vomitus all around her mouth. S/p Cardiac arrest in road on 06/21/19 AED shocked her twice. ROSC in field was in coma with GCS of 8 on arrival to ED but was not intubated. intubated in the ED. Extubated on 06/24 Shock liver s/p cardiac arrest and septic shock. now improving S/p Severe Metabolic acidosis due to lactic acidosis thought to be due to c diff colitis and cardiac arrest. now resolved. S/p Septic Shock due to aspiration pneumonia and c diff now off pressors. Alcohol intoxication on presentation now in withdrawal still with mild delirium and intermittent agitation on thiamine, folate, librium, ativan prn. Multiple electrolyte abnormalities hypomagnesemia, hypophosphatemia being replaced. Rising CPK probably due to Hypophosphatemia will continue to monitor. Aspiration pneumonia on meropenem C diff colitis on po vancomycin and IV metronidazole. Ileus improving started on oral liquids. Liver fluid collection probably hematoma needed PRBC and Platelet transfusion Now seems to have self tamponanded Seen by surgery no intervention need at present If H starts to drop and collection increases then will need intervention by IR. History of pancreatitis and pancreatic lesion. Currently without evidence of acute pancreatitis. Amylase and lipase are nor mal. Pancreatic lesion must be followed up. Gastrointestinal (GI) prophylaxis with famotidine. As has c. diff so no PPI Deep vein thrombosis (DVT) prophylaxis TEDS and seq Had thrombocytopenia so lovenox was stopped. Elevated MCV. Likely from folate or B12 deficiency, due to alcohol abuse Plan/VTE VTE Prophylaxis Ordered?: Yes VS, I&O, 24H, Fishbone Vital Signs/I&O Vital Signs Date Time Temp Pulse Resp B/P (MAP) Pulse Ox O2 Delivery O2 Flow Rate FiO2 06/25/19 08:00 16 06/25/19 06:00 126 112/68 (83) 06/25/19 04:00 98.6 98 Nasal Cannula 2.0 06/24/19 09:00 40 I&O- Last 24 Hours up to 6 AM 06/25/19 06:00 Intake Total 1152.25 ml Output Total 4750 ml Balance -3597.75 ml Laboratory Data 24H LABS Laboratory Tests 2 06/24/19 12:11: Bedside Glucose (Misc Panel) 129H 06/24/19 18:05: Bedside Glucose (Misc Panel) 77, Nucleated Red Blood Cells % (auto) 0.2H 06/24/19 18:07: Bedside Glucose (Misc Panel) 110H 06/25/19 00:03: Bedside Glucose (Misc Panel) 121H 06/25/19 04:10: Nucleated Red Blood Cells % (auto) 0.2H, Anion Gap 9, Glomerular Filtration Rate > 60.0, Calcium Level 7.9L, Phosphorus Level 1.5#L, Magnesium Level 2.0, Total Bilirubin 1.0, Aspartate Amino Transf (AST/SGOT) 192H, Alanine Aminotransferase (ALT/SGPT) 332H, Alkaline Phosphatase 115, Lactate Dehydrogenase 344H, Total Creatine Kinase 1531#H, Total Protein 6.1#L, Albumin 2.4#L, Albumin/Globulin Ratio 0.65L, Triglycerides Level 55, Cholesterol Level 103 06/25/19 05:40: Bedside Glucose (Misc Panel) 121H CBC/BMP Laboratory Tests 06/24/19 18:05 06/25/19 04:10 Microbiology Microbiology 06/21/19 Blood Culture - Preliminary, Resulted No Growth after 72 hours. All specime... 06/21/19 Blood Culture - Preliminary, Resulted No Growth after 72 hours. All specime... LULU NICOLE MD Jun 25, 2019 09:33
[2019-06-25] MEDS: FAMOTIDINE 20 MG TAB PO SCH (20:21)
[2019-06-25] MEDS: NEUTRA-PHOS 1.5 GM PACKET PO SCH (20:21)
[2019-06-26] VITALS: BP 104/70
[2019-06-26] MEDS: MEROPENEM INJ 1 GM in IV 1 EA IV SCH ×3 (00:38→16:17)
[2019-06-26] MEDS: VANCOMYCIN ORAL SOL 250MG/5ML ORAL SYRINGE PO SCH ×4 (00:39→17:28)
[2019-06-26] MEDS: oxyCODONE 5MG TAB PO PRN ×4 (00:39→20:37)
[2019-06-26] MEDS: metroNIDAZOLE 500 MG in IV 1 EA IV SCH ×3 (02:38→18:06)
[2019-06-26 04:00] VITALS: BP 112/69
[2019-06-26] MEDS: HumaLOG INSULIN (NovoLOG) PER UNIT SC SCH ×4 (05:35→17:28)
[2019-06-26 05:57] LABS: HEMATOCRIT 31.2 % (36.0-47.0); HEMOGLOBIN 10.4 g/dl (12.0-15.5); MEAN CORPUSCULAR HEMOGLOBIN 31.8 pg (27.0-33.0); MEAN CORPUSCULAR HGB CONC 33.3 g/dl (32.0-36.5); MEAN CORPUSCULAR VOLUME 95.4 fl (80.0-96.0); PLATELET COUNT, AUTOMATED 148 10^3/uL (150-450); RED BLOOD COUNT 3.27 10^6/uL (4.00-5.40); WHITE BLOOD COUNT 6.6 10^3/uL (4.0-10.0)
[2019-06-26 06:32] LABS: ALBUMIN 2.2 GM/DL (3.2-5.2); ALT/SGPT 197 U/L (12-78); BILIRUBIN,TOTAL 0.8 MG/DL (0.2-1.0); BLOOD UREA NITROGEN 4 MG/DL (7-18); CALCIUM LEVEL 7.9 MG/DL (8.5-10.1); CARBON DIOXIDE LEVEL 27 MEQ/L (21-32); CHLORIDE LEVEL 105 MEQ/L (98-107); CHOLESTEROL LEVEL 98 MG/DL (< 200); CPK CREATINE PHOSPHOKINASE 482 U/L (26-192); CREATININE FOR GFR 0.42 MG/DL (0.55-1.30); GLOMERULAR FILTRATION RATE > 60.0 (>60); GLUCOSE, FASTING 156 MG/DL (70-100); LDH LACTATE DEHYDROGENASE 256 U/L (84-246); MAGNESIUM LEVEL 2.1 MG/DL (1.8-2.4); POTASSIUM SERUM 3.1 MEQ/L (3.5-5.1); SODIUM LEVEL 138 MEQ/L (136-145); TOTAL PROTEIN 5.8 GM/DL (6.4-8.2); TRIGLYCERIDES LEVEL 55 MG/DL (<150)
[2019-06-26] MEDS ORDERED: POTASSIUM CHLORIDE 10 MEQ SR TABLET PO ONE (07:00)
[2019-06-26 08:00] VITALS: BP 104/65
[2019-06-26] MEDS: IPRATROPIUM 0.5MG/ALBUTEROL 2.5MG INH SOL UD 3ML (DUONEB)(J7620) NEB SCH ×4 (08:13→19:42)
[2019-06-26] MEDS: THIAMINE 100 MG TAB PO SCH (08:37)
[2019-06-26] MEDS: NEUTRA-PHOS 1.5 GM PACKET PO SCH ×3 (08:37→20:35)
[2019-06-26] MEDS: FOLIC ACID 1 MG TAB PO SCH (08:37)
[2019-06-26] MEDS: MULTIVITAMINS/MINERALS THERAP 1 TAB PO SCH (08:37)
[2019-06-26] MEDS: FAMOTIDINE 20 MG TAB PO SCH ×2 (08:38→20:35)
[2019-06-26] MEDS: CHLORHEXIDINE GLUCONATE 0.12 % 15ML UDC (PERIDEX ORAL RINSE) MT SCH ×2 (08:39→20:36)
[2019-06-26 12:00] VITALS: BP 108/60
[2019-06-26 16:00] VITALS: BP 106/54
--- NOTE | 2019-06-26 16:28 | IPNPDOC ---
Text Note Date of Service The patient was seen on 06/26/19. NOTE SUBJECTIVE: Ms. León is more awake, alert and conversant. Her mother is at bedside. Patient has been hospitalized after a cardiac arrest event associated with alcohol intoxication. Patient has had alcohol withdrawal symptoms. OBJECTIVE: Please see vital signs below--patient has had CIWA score up to 8 Physical exam: HENT: Neck is supple, no adenopathy or thyromegaly, oral mucosa is moist, she exhibits some pallor but no icterus. Cardiovascular: Regular rate and rhythm, no murmur. Respiratory: Clear to auscultation, has pain to her chest and ribs from chest compressions Abdomen: Soft, nontender, nondistended. Extremities: No peripheral edema or lesions, pedal pulses are palpable Neuro: Patient is able to move all of her extremities but is still weak, she does not currently have remarkable tremor ASSESSMENT/PLAN: 1. Cardiac arrest. CPR was initiated by a bystander. There is question of whether patient was actually in arrest. She also may have received shock for tachyarrhythmia that was not ventricular fibrillation. Patient has not had any arrhythmias since a rrival to the hospital. He has residual pain to her chest and residual liver enzyme elevation that is resolving. 2. Alcohol withdrawal Patient has been on Librium and is receiving Ativan per [facility] protocol. She is requiring less. Patient's intoxication was fairly significant. Patient will need aggressive counseling. 3. C. difficile infection. The patient apparently had a prior C. difficile infection. She is not currently actively stooling and wasn't prior to admission. However, testing was positive. She may be shedding spores and is being treated with Vanco and Flagyl. VS,Fishbone, I+O VS, Fishbone, I+O Laboratory Tests 06/26/19 05:36 Vital Signs Date Time Temp Pulse Resp B/P (MAP) Pulse Ox O2 Delivery O2 Flow Rate FiO2 06/26/19 15:01 18 06/26/19 13:30 91 Room Air 06/26/19 12:00 98.5 119 108/60 (76) 06/25/19 08:00 2.0 06/24/19 09:00 40 I&O- Last 24 Hours up to 6 AM 06/26/19 06:00 Intake Total 2300 ml Output Total 2300 ml Balance 0 ml BESS ALVARADO MD Jun 26, 2019 16:28
[2019-06-26 20:00] VITALS: BP_SYST 98; BP_DIAS 65; BP_DIAS 66
[2019-06-27] VITALS: BP 102/70
[2019-06-27] MEDS: VANCOMYCIN ORAL SOL 250MG/5ML ORAL SYRINGE PO SCH ×5 (00:08→23:14)
[2019-06-27] MEDS: MEROPENEM INJ 1 GM in IV 1 EA IV SCH ×4 (00:08→23:13)
[2019-06-27] MEDS: HumaLOG INSULIN (NovoLOG) PER UNIT SC SCH ×5 (00:29→21:00)
[2019-06-27] MEDS: metroNIDAZOLE 500 MG in IV 1 EA IV SCH ×4 (02:34→19:24)
[2019-06-27] MEDS: oxyCODONE 5MG TAB PO PRN ×3 (02:34→20:54)
[2019-06-27] MEDS: LORazepam 2 MG/ML VIAL (J2060) IV PRN (02:34)
[2019-06-27 04:00] VITALS: BP_SYST 110; BP_DIAS 68; BP_DIAS 70
[2019-06-27 05:00] LABS: HEMOGLOBIN 10.7 g/dl (12.0-15.5); MEAN CORPUSCULAR HEMOGLOBIN 31.4 pg (27.0-33.0); MEAN CORPUSCULAR HGB CONC 32.4 g/dl (32.0-36.5); MEAN CORPUSCULAR VOLUME 96.8 fl (80.0-96.0); PLATELET COUNT, AUTOMATED 215 10^3/uL (150-450); RED BLOOD COUNT 3.41 10^6/uL (4.00-5.40)
[2019-06-27 05:07] LABS: ALBUMIN 2.3 GM/DL (3.2-5.2); ALT/SGPT 147 U/L (12-78); BILIRUBIN,TOTAL 0.8 MG/DL (0.2-1.0); BLOOD UREA NITROGEN 5 MG/DL (7-18); CALCIUM LEVEL 7.9 MG/DL (8.5-10.1); CARBON DIOXIDE LEVEL 28 MEQ/L (21-32); CHLORIDE LEVEL 106 MEQ/L (98-107); CHOLESTEROL LEVEL 99 MG/DL (< 200); CPK CREATINE PHOSPHOKINASE 257 U/L (26-192); GLOMERULAR FILTRATION RATE > 60.0 (>60); GLUCOSE, FASTING 150 MG/DL (70-100); LDH LACTATE DEHYDROGENASE 299 U/L (84-246); MAGNESIUM LEVEL 1.9 MG/DL (1.8-2.4); PHOSPHORUS LEVEL 2.3 MG/DL (2.5-4.9); POTASSIUM SERUM 3.4 MEQ/L (3.5-5.1); SODIUM LEVEL 141 MEQ/L (136-145); TOTAL PROTEIN 5.5 GM/DL (6.4-8.2); TRIGLYCERIDES LEVEL 58 MG/DL (<150)
[2019-06-27] MEDS: IPRATROPIUM 0.5MG/ALBUTEROL 2.5MG INH SOL UD 3ML (DUONEB)(J7620) NEB SCH ×4 (07:08→20:19)
[2019-06-27 08:00] VITALS: BP 108/56
[2019-06-27] MEDS: NEUTRA-PHOS 1.5 GM PACKET PO SCH ×3 (08:45→20:51)
[2019-06-27] MEDS: CHLORHEXIDINE GLUCONATE 0.12 % 15ML UDC (PERIDEX ORAL RINSE) MT SCH (08:45)
[2019-06-27] MEDS: MULTIVITAMINS/MINERALS THERAP 1 TAB PO SCH (08:46)
[2019-06-27] MEDS: FAMOTIDINE 20 MG TAB PO SCH ×2 (08:46→20:51)
[2019-06-27] MEDS: FOLIC ACID 1 MG TAB PO SCH (08:46)
[2019-06-27] MEDS: THIAMINE 100 MG TAB PO SCH (08:46)
[2019-06-27 12:00] VITALS: BP 117/62
[2019-06-27 16:00] VITALS: BP_SYST 109; BP_DIAS 64; BP_DIAS 66
--- NOTE | 2019-06-27 16:24 | IPNPDOC ---
Text Note Date of Service The patient was seen on 06/27/19. NOTE SUBJECTIVE: The patient is much more alert and appropriate today. Patient was admitted status post cardiac arrest with resuscitation. She has also gone through alcohol withdrawal. She has remarkable residual weakness. OBJECTIVE: Please see vital signs below Physical exam: HENT: Neck is supple, no adenopathy or thyromegaly, oral mucosa is moist, she exhibits some pallor but no icterus. Cardiovascular: Regular rate and rhythm, no murmur. Respiratory: Clear to auscultation, has pain to her chest and ribs from chest compressions Abdomen: Soft, nontender, nondistended. Extremities: No peripheral edema or lesions, pedal pulses are palpable Neuro: Patient is able to move all of her extremities but is still weak. Psych: Patient does have a flat, depressed affect. We are able to have a coherent discussion of her clinical condition. 1. Cardiac arrest. CPR was initiated by a bystander. There is question of whether patient was actually in arrest. She also may have received shock for tachyarrhythmia that was not ventricular fibrillation. Patient has not had any arrhythmias since arrival to the hospital. She has residual pain to her chest and residual liver enzyme elevation that is resolving. 2. Alcohol withdrawal Patient has been on Librium and is receiving Ativan per [facility] protocol. She is requiring less. Patient's intoxication was fairly significant--blood alcohol level was 194 mg/dL on presentation. Patient will need aggressive counseling; have also recommended treatment program. 3. C. difficile infection. The patient apparently had a prior C. difficile infection. She is not currently actively stooling and wasn't prior to admission. However, testing was positive. She may be shedding spores and is being treated with Vanco and Flagyl. VS,Fishbone, I+O VS, Fishbone, I+O Laboratory Tests 06/27/19 04:23 Vital Signs Date Time Temp Pulse Resp B/P (MAP) Pulse Ox O2 Delivery O2 Flow Rate FiO2 06/27/19 13:37 18 06/27/19 12:39 93 Nasal Cannula 2.0 06/27/19 12:00 99.5 119 117/62 (80) 06/24/19 09:00 40 I&O- Last 24 Hours up to 6 AM 06/27/19 06:00 Intake Total 1220 ml Output Total 1230 ml Balance -10 ml ALVARADO,BESS A. MD Jun 27, 2019 16:24
[2019-06-27] MEDS ORDERED: DEXTROSE 50% 50 ML SYRINGE IV PRN (19:00)
[2019-06-27] MEDS ORDERED: GLUCOSE 4 GM CHEW TABLET PO PRN (19:00)
[2019-06-27] MEDS ORDERED: GLUCAGON FOR INJ 1 MG VIAL (J1610) SC PRN (19:00)
[2019-06-27] MEDS: CEPACOL LOZENGE PO PRN ×2 (19:24→23:13)
[2019-06-27 20:00] VITALS: BP 107/67
[2019-06-27] MEDS ORDERED: LORazepam 2 MG TAB PO PRN (21:30)
[2019-06-28] VITALS (7 sets, daily range): BP systolic 95–118; BP diastolic 30–81
[2019-06-28] MEDS: oxyCODONE 5MG TAB PO PRN ×3 (03:25→20:27)
[2019-06-28] MEDS: metroNIDAZOLE 500 MG in IV 1 EA IV SCH ×2 (03:25→11:28)
[2019-06-28 05:55] LABS: HEMATOCRIT 32.4 % (36.0-47.0); HEMOGLOBIN 10.7 g/dl (12.0-15.5); MEAN CORPUSCULAR HEMOGLOBIN 31.3 pg (27.0-33.0); MEAN CORPUSCULAR VOLUME 94.7 fl (80.0-96.0); PLATELET COUNT, AUTOMATED 275 10^3/uL (150-450); RED BLOOD COUNT 3.42 10^6/uL (4.00-5.40); WHITE BLOOD COUNT 4.5 10^3/uL (4.0-10.0)
[2019-06-28] MEDS: VANCOMYCIN ORAL SOL 250MG/5ML ORAL SYRINGE PO SCH ×3 (05:55→17:48)
[2019-06-28 06:25] LABS: ALBUMIN 2.3 GM/DL (3.2-5.2); ALT/SGPT 100 U/L (12-78); BILIRUBIN,TOTAL 0.7 MG/DL (0.2-1.0); BLOOD UREA NITROGEN 3 MG/DL (7-18); CALCIUM LEVEL 8.3 MG/DL (8.5-10.1); CARBON DIOXIDE LEVEL 27 MEQ/L (21-32); CHLORIDE LEVEL 108 MEQ/L (98-107); CHOLESTEROL LEVEL 87 MG/DL (< 200); CPK CREATINE PHOSPHOKINASE 143 U/L (26-192); CREATININE FOR GFR 0.49 MG/DL (0.55-1.30); GLOMERULAR FILTRATION RATE > 60.0 (>60); GLUCOSE, FASTING 175 MG/DL (70-100); LDH LACTATE DEHYDROGENASE 315 U/L (84-246); MAGNESIUM LEVEL 1.9 MG/DL (1.8-2.4); PHOSPHORUS LEVEL 2.6 MG/DL (2.5-4.9); POTASSIUM SERUM 3.1 MEQ/L (3.5-5.1); SODIUM LEVEL 141 MEQ/L (136-145); TOTAL PROTEIN 5.7 GM/DL (6.4-8.2); TRIGLYCERIDES LEVEL 70 MG/DL (<150)
[2019-06-28] MEDS ORDERED: POTASSIUM CHLORIDE 10 MEQ SR TABLET PO ONE (07:00)
[2019-06-28] MEDS: IPRATROPIUM 0.5MG/ALBUTEROL 2.5MG INH SOL UD 3ML (DUONEB)(J7620) NEB SCH ×4 (07:16→19:31)
[2019-06-28] MEDS: MEROPENEM INJ 1 GM in IV 1 EA IV SCH ×2 (08:12→17:48)
[2019-06-28] MEDS: HumaLOG INSULIN (NovoLOG) PER UNIT SC SCH ×4 (08:13→21:00)
[2019-06-28] MEDS: MULTIVITAMINS/MINERALS THERAP 1 TAB PO SCH (08:13)
[2019-06-28] MEDS: THIAMINE 100 MG TAB PO SCH (08:13)
[2019-06-28] MEDS: FOLIC ACID 1 MG TAB PO SCH (08:13)
[2019-06-28] MEDS: FAMOTIDINE 20 MG TAB PO SCH ×2 (08:13→20:26)
[2019-06-28] MEDS: NEUTRA-PHOS 1.5 GM PACKET PO SCH ×3 (08:17→20:26)
[2019-06-28] MEDS ORDERED: SLF 3 ML SYR IV PRN (11:30)
[2019-06-28] MEDS: SLF 3 ML SYR IV SCH ×2 (13:39→21:05)
--- NOTE | 2019-06-28 19:50 | IPNPDOC ---
Text Note Date of Service The patient was seen on 06/28/19. NOTE SUBJECTIVE: The patient continued more alert and appropriate. Patient was admitted status post cardiac arrest with resuscitation. She has also gone through alcohol withdrawal. She has remarkable residual weakness. She has been walking in the hallways, but requires standby assist, as she is still at times fairly wobbly. OBJECTIVE: Please see vital signs below Physical exam: HENT: Neck is supple, no adenopathy or thyromegaly, oral mucosa is moist, she exhibits some pallor but no icterus. Cardiovascular: Regular rate and rhythm, no murmur. Respiratory: Clear to auscultation, has pain to her chest and ribs from chest compressions Abdomen: Soft, nontender, nondistended. Extremities: No peripheral edema or lesions, pedal pulses are palpable Neuro: Patient is able to move all of her extremities but is still weak, she does not have tremor Psych: Patient does have a flat, depressed affect. We are able to have a coherent discussion of her clinical condition. 1. Cardiac arrest. CPR was initiated by a bystander. There is question of whether patient was actually in arrest. She also may have received shock for tachyarrhythmia that was not ventricular fibrillation. Patient has not had any arrhythmias since arrival to the hospital. She has residual pain to her chest and residual liver enzyme elevation that is resolving. 2. Alcohol withdrawal Patient has been on Librium and is receiving Ativan per [facility] protocol. She is requiring less. Patient's intoxication was fairly significant--blood alcohol level was 194 mg/dL on presentation. Patient will need aggressive counseling; have also recommended treatment program. Patient states that she did drink beer and had some shots of alcohol as well. We have discussed that this is not appropriate when caring for children. 3. C. difficile infection. The patient apparently had a prior C. difficile infection. She is not currently actively stooling and wasn't prior to admission. However, testing was positive. She may be shedding spores and is being treated with Vanco and Flagyl. The patient has significant residual weakness. She appears to be improving daily. There have been recommendations that she be transitioned to the acute rehabilitation unit. However, she may be stable enough to be discharged to home by the end of this weekend. VS,Fishbone, I+O VS, Fishbone, I+O Laboratory Tests 06/28/19 05:18 Vital Signs Date Time Temp Pulse Resp B/P (MAP) Pulse Ox O2 Delivery O2 Flow Rate FiO2 06/28/19 16:00 2.0 06/28/19 16:00 98.1 106 20 115/50 (71) 97 Nasal Cannula 06/24/19 09:00 40 I&O- Last 24 Hours up to 6 AM 06/28/19 06:00 Intake Total 1790 ml Output Total 1900 ml Balance -110 ml BESS ALVARADO MD Jun 28, 2019 19:49
[2019-06-28] MEDS ORDERED: MORPHINE 2 MG/ML 1ML VIAL (J2270) IV ONE (22:15)
[2019-06-29] MEDS: VANCOMYCIN ORAL SOL 250MG/5ML ORAL SYRINGE PO SCH ×5 (00:10→23:44)
[2019-06-29 04:00] VITALS: BP 110/68
[2019-06-29] MEDS: SLF 3 ML SYR IV SCH ×3 (05:55→21:28)
[2019-06-29] MEDS: oxyCODONE 5MG TAB PO PRN ×2 (05:55→12:13)
[2019-06-29 06:15] LABS: HEMATOCRIT 35.4 % (36.0-47.0); HEMOGLOBIN 11.5 g/dl (12.0-15.5); MEAN CORPUSCULAR HEMOGLOBIN 31.3 pg (27.0-33.0); MEAN CORPUSCULAR HGB CONC 32.5 g/dl (32.0-36.5); MEAN CORPUSCULAR VOLUME 96.5 fl (80.0-96.0); PLATELET COUNT, AUTOMATED 325 10^3/uL (150-450); RED BLOOD COUNT 3.67 10^6/uL (4.00-5.40); WHITE BLOOD COUNT 5.1 10^3/uL (4.0-10.0)
[2019-06-29 06:34] LABS: BLOOD UREA NITROGEN 3 MG/DL (7-18); CALCIUM LEVEL 8.5 MG/DL (8.5-10.1); CARBON DIOXIDE LEVEL 29 MEQ/L (21-32); CHLORIDE LEVEL 106 MEQ/L (98-107); CREATININE FOR GFR 0.51 MG/DL (0.55-1.30); GLOMERULAR FILTRATION RATE > 60.0 (>60); GLUCOSE, FASTING 160 MG/DL (70-100); POTASSIUM SERUM 3.7 MEQ/L (3.5-5.1); SODIUM LEVEL 139 MEQ/L (136-145)
[2019-06-29 08:00] VITALS: BP 102/70
[2019-06-29] MEDS: IPRATROPIUM 0.5MG/ALBUTEROL 2.5MG INH SOL UD 3ML (DUONEB)(J7620) NEB SCH ×4 (08:08→19:47)
[2019-06-29] MEDS: FOLIC ACID 1 MG TAB PO SCH (09:13)
[2019-06-29] MEDS: FAMOTIDINE 20 MG TAB PO SCH ×2 (09:13→20:00)
[2019-06-29] MEDS: HumaLOG INSULIN (NovoLOG) PER UNIT SC SCH ×4 (09:13→20:01)
[2019-06-29] MEDS: NEUTRA-PHOS 1.5 GM PACKET PO SCH ×3 (09:13→20:00)
[2019-06-29] MEDS: MULTIVITAMINS/MINERALS THERAP 1 TAB PO SCH (09:14)
[2019-06-29] MEDS: THIAMINE 100 MG TAB PO SCH (09:14)
[2019-06-29 12:00] VITALS: BP 110/68
--- NOTE | 2019-06-29 13:39 | IPNPDOC ---
Text Note Date of Service The patient was seen on 06/29/19. NOTE SUBJECTIVE: Ms. León improves daily. Her oral intake is better. She is more alert daily. She is still weak and wobbly with ambulation. She continues with remarkable anterior chest wall pain from receiving chest compressions. Patient is admitted after episode of cardiac arrest in the field. She underwent resuscitation inclusive of chest compressions and defibrillation. OBJECTIVE: See vital signs below Physical exam: HENT: Neck is supple, no adenopathy or thyromegaly, oral mucosa is moist, she exhibits some pallor but no icterus. Cardiovascular: Regular rate and rhythm, no murmur. Respiratory: Clear to auscultation, has pain to her chest and ribs from chest compressions; ice pack is giving some relief Abdomen: Soft, nontender, nondistended. Extremities: No peripheral edema or lesions, pedal pulses are palpable Neuro: Patient is able to move all of her extremities but is still weak, she does not have tremor. She is increasingly ambulatory ASSESSMENT/PLAN: 1. Cardiac arrest. CPR was initiated by a bystander. There is question of whether patient was actually in arrest. She also may have received shock for tachyarrhythmia that was not ventricular fibrillation. Patient has not had any arrhythmias since arrival to the hospital. She has significant residual pain to her chest wall and ribs. She is trying ice packs today. We'll try making use of an anti-inflamm atory for relief. 2. Alcohol withdrawal Patient has been on Librium and was receiving Ativan per [facility] protocol. Patient's intoxication was fairly significant--blood alcohol level was 194 mg/dL on presentation. Alcohol withdrawal syndrome is resolved. Patient will need aggressive counseling; have also recommended treatment program. Patient states that she did drink beer and had some shots of alcohol as well. We have discussed that this is not appropriate when caring for children. 3. C. difficile infection. The patient apparently had a prior C. difficile infection. She is not currently actively stooling and wasn't prior to admission. However, testing was positive. She may be shedding spores and is being treated with oral Vanco. The patient has significant residual weakness. She appears to be improving daily. There have been recommendations that she be transitioned to the acute rehabilitation unit. However, she may become stable enough to be discharged to home by Monday. VS,Fishbone, I+O VS, Fishbone, I+O Laboratory Tests 06/29/19 05:40 Vital Signs Date Time Temp Pulse Resp B/P (MAP) Pulse Ox O2 Delivery O2 Flow Rate FiO2 06/29/19 12:43 18 06/29/19 12:16 94 Nasal Cannula 2.0 06/29/19 12:00 98.8 113 110/68 (82) 06/24/19 09:00 40 I&O- Last 24 Hours up to 6 AM 06/29/19 06:00 Intake Total 1641 ml Output Total 3000 ml Balance -1359 ml BESS ALVARADO MD Jun 29, 2019 13:39
[2019-06-29] MEDS ORDERED: KETOROLAC 30 MG/ML VIAL (J1885) IV ONE (14:00)
[2019-06-29 16:00] VITALS: BP 105/58
[2019-06-29 20:00] VITALS: BP 104/57
[2019-06-29 23:59] VITALS: BP 108/71
[2019-06-30] MEDS ORDERED: KETOROLAC 30 MG/ML VIAL (J1885) IV ONE (00:45)
[2019-06-30 04:00] VITALS: BP 106/67
[2019-06-30] MEDS: VANCOMYCIN ORAL SOL 250MG/5ML ORAL SYRINGE PO SCH ×2 (05:57→11:12)
[2019-06-30] MEDS: SLF 3 ML SYR IV SCH (05:57)
[2019-06-30 05:59] LABS: BLOOD UREA NITROGEN 7 MG/DL (7-18); CALCIUM LEVEL 8.8 MG/DL (8.5-10.1); CARBON DIOXIDE LEVEL 28 MEQ/L (21-32); CHLORIDE LEVEL 107 MEQ/L (98-107); GLOMERULAR FILTRATION RATE > 60.0 (>60); GLUCOSE, FASTING 202 MG/DL (70-100); IRON (FE) 40 UG/DL (50-170); POTASSIUM SERUM 4.1 MEQ/L (3.5-5.1); SODIUM LEVEL 140 MEQ/L (136-145)
[2019-06-30] MEDS: IPRATROPIUM 0.5MG/ALBUTEROL 2.5MG INH SOL UD 3ML (DUONEB)(J7620) NEB SCH ×2 (07:16→11:19)
[2019-06-30 08:00] VITALS: BP 108/70
[2019-06-30] MEDS: MULTIVITAMINS/MINERALS THERAP 1 TAB PO SCH (08:25)
[2019-06-30] MEDS: NEUTRA-PHOS 1.5 GM PACKET PO SCH (08:25)
[2019-06-30] MEDS: HumaLOG INSULIN (NovoLOG) PER UNIT SC SCH (08:25)
[2019-06-30] MEDS: FOLIC ACID 1 MG TAB PO SCH (08:26)
[2019-06-30] MEDS: FAMOTIDINE 20 MG TAB PO SCH (08:26)
[2019-06-30] MEDS: THIAMINE 100 MG TAB PO SCH (08:26)
[2019-06-30] MEDS ORDERED: metFORMIN XR 500MG TAB *GLUCOPHAGE XR PO SCH (09:00)
[2019-06-30] MEDS ORDERED: FERR325T3 PO (10:19)
[2019-06-30] MEDS ORDERED: FIRV50SO PO (10:19)
--- NOTE | 2019-06-30 18:17 | DS.PDOC ---
Discharge Summary General Date of Admission Jun 21, 2019 at 19:52 Date of Discharge June 30, 2019 Specialist/Consultants Involve: CAESAR SEO MD Specialist/Consultants Involve Dr. Jorge L Rollins, Dr. Lisandro Kimlbe Discharge Summary PROCEDURES PERFORMED DURING STAY: [Intubation, central line placement to the right internal jugular vein, defibrillation in the field]. ADMITTING DIAGNOSES: 1. [Cardiac arrest with collapse]. DISCHARGE DIAGNOSES: 1. [Cardiac arrest with collapse, Supraventricular tachycardia, acute respiratory failure, toxic metabolic encephalopathy, lactic acidosis resolved, bzx-jrwaqmj-wyuipgslp diabetes mellitus, recurrent pancreatitis, alcohol intoxication with withdrawal, liver hematoma resolved, septic shock resolved, C. difficile infection, iron deficiency anemia]. COMPLICATIONS/CHIEF COMPLAINT: Cardiac Arrest,Julien Coma Scale Score 3-8 At Arr. HISTORY OF PRESENT ILLNESS/HOSPITAL COURSE: [This is a 34-year-old female who c ollapsed in public while picking up her child from the bus stop. She was reported to be in cardiopulmonary arrest. She underwent initiation of resuscitation by a bystander with chest compressions. She subsequently underwent defibrillation. Patient was in fact found to have supraventricular tachycardia. Patient was comatose and intubated. Patient was admitted to the intensive care unit. She had central line placement. Patient was then was felt to be in septic shock. Patient received pressors and fluids. She was found also to have C. difficile colitis infection and was started on therapy with vancomycin. Other complications from her resuscitation event included elevated liver enzymes with liver hematoma. She was seen by the surgery service and did not require invasive intervention. She also had elevated CK consistent with defibrillation. These did eventually resolve. She had residual severe chest wall pain that was responsive to anti-inflammatories. She was eventually weaned off pressors and off the ventilator and extubated. Additional finding was that the patient had a serum alcohol the 194 mg/dL. She was found to have a history of alcohol abuse that was not well known to her family. The patient did have alcohol withdrawal during this hospital stay inclusive of tremors and hallucinations and was treated per [facility] protocol. Of interest, the patient had been in an alcohol rehabilitation program in the past. However, she did not appear to have good insight about her drinking habits. She did not feel that she had a significant problem. She was advised that her habits put her children at risk and that she needs additional counseling. Patient was seen and treated by physical and occupational therapy services. She initially had very poor mobility and balance and it was thought that she would require a stay in the acute physical rehabilitation unit, but she did become fully independently ambulatory. Patient had had recurrent pancreatitis associated with her alcohol use. Prior to this event she had had an episode of DKA and was diagnosed with ace-ogiwhke-symcxbuvq diabetes mellitus. She is scheduled to meet with diabetes management educators in a week. Lastly, patient was found to have iron deficiency anemia with a serum iron of 40 was started on iron supplementation.]. DISCHARGE MEDICATIONS: Please see below. ALLERGIES: Please see below. PHYSICAL EXAMINATION ON DISCHARGE: VITAL SIGNS: Please see below. HENT: Neck is supple, no adenopathy or thyromegaly, oral mucosa is moist, she exhibits some pallor but no icterus. Cardiovascular: Regular rate and rhythm, no murmur. Respiratory: Clear to auscultation, had pain to her chest and ribs from chest compressions; further responsive to anti-inflammatory Abdomen: Soft, nontender, nondistended. Extremities: No peripheral edema or lesions, pedal pulses are palpable Neuro: Patient is able to move all of her extremities, she does not have tremor, she is independently ambulatory LABORATORY DATA: Please see below. IMAGING: PROGNOSIS: ACTIVITY: [As tolerated]. DIET: [Consistent carbohydrate] DISCHARGE PLAN: [The patient is discharged to home. She has scheduled follow-up at [facility] for additional diabetes education. She has been placed on iron supplementation. She is also already receiving other folic acid and B12 supplementation. She has again been advised to pursue further alcohol counseling and treatment.] DISPOSITION: 01 Home, Self-Care. DISCHARGE INSTRUCTIONS: 1. . ITEMS TO FOLLOWUP ON ON OUTPATIENT: 1. . DISCHARGE CONDITION: [Stable]. TIME SPENT ON DISCHARGE: Greater than [40] minutes. Vital Signs/I&Os Vital Signs Date Time Temp Pulse Resp B/P (MAP) Pulse Ox O2 Delivery O2 Flow Rate FiO2 06/30/19 08:00 97.8 114 18 108/70 (83) 92 Room Air 06/29/19 23:59 2.0 06/24/19 09:00 40 I&O- Last 24 Hours up to 6 AM 06/30/19 06:00 Intake Total 720 ml Output Total 1500 ml Balance -780 ml Laboratory Data Labs 24H Laboratory Tests 2 06/29/19 19:37: Bedside Glucose (Misc Panel) 259H 06/30/19 05:18: Anion Gap 5L, Glomerular Filtration Rate > 60.0, Calcium Level 8.8, Iron Level 40L CBC/BMP Laboratory Tests 06/30/19 05:18 FSBS Laboratory Tests Test 06/29/19 19:37 Range/Units Bedside Glucose (Misc Panel) 259 70-105 MG/DL Microbiology Microbiology 06/21/19 Blood Culture - Final, Complete NO GROWTH AFTER 5 DAYS 06/21/19 Blood Culture - Final, Complete NO GROWTH AFTER 5 DAYS Discharge Medications Scheduled Ferrous Sulfate (Ferrous Sulfate) 325 Mg Tablet.dr, 1 TAB PO DAILY Metformin HCl (Metformin HCl ER) 500 Mg Tab.er.24h, 500 MG PO DAILY, (Reported) Euy722/Iron Fum/Folic/Docusate ( 19 Tablet) 1 Tab Tab, 1 TAB PO DAILY, (Reported) Vancomycin HCl (Firvanq) 50 Mg/1 Ml Soln.recon, 500 MG PO Q6H Miscellaneous Medications [Patient Comment] , (Reported) MEDICATION LIST FROM EXTERNAL MED HISTORY; UNSURE OF MED LIST. Allergies Coded Allergies: No Known Allergies (Unverified , 07/19/17) BESS ALVARADO MD Jun 30, 2019 18:17
[2019-07-01] MEDS ORDERED: PRENATAL VITAMINS CHEWABLE TABLET PO SCH (09:00)
== END 2019-06-30 11:48 | disposition home or self-care (01) | DRG 871 ==
LOC: M ED 16:55 → M ED INP 19:52 → M ICU 20:05 → M PCU 06-25 23:52
PROVIDERS: ADMIT Internal Medicine Pulmonary Disease; ATTEND Internal Medicine
PROC: 02HV33Z Insertion of Infusion Device into Superior Vena Cava, Percutaneous Approach (ICD-10-PCS; principal; 2019-06-21)
PROC: 5A1945Z Respiratory Ventilation, 24-96 Consecutive Hours (ICD-10-PCS; 2019-06-21)
PROC: 0BH17EZ Insertion of Endotracheal Airway into Trachea, Via Natural or Artificial Opening (ICD-10-PCS; 2019-06-21)
PROC: 30233N1 Transfusion of Nonautologous Red Blood Cells into Peripheral Vein, Percutaneous Approach (ICD-10-PCS; 2019-06-23)
DX: A41.9 Sepsis, unspecified organism (principal); J69.0 Pneumonitis due to inhalation of food and vomit; J96.00 Acute respiratory failure, unspecified whether with hypoxia or hypercapnia; I46.9 Cardiac arrest, cause unspecified; R65.21 Severe sepsis with septic shock; G92 Toxic encephalopathy; K72.01 Acute and subacute hepatic failure with coma; E87.2 Acidosis; A04.72 Enterocolitis due to Clostridium difficile, not specified as recurrent; S36.112A Contusion of liver, initial encounter; K56.7 Ileus, unspecified; R18.8 Other ascites; I47.1 Supraventricular tachycardia; E11.9 Type 2 diabetes mellitus without complications; F10.129 Alcohol abuse with intoxication, unspecified; E53.8 Deficiency of other specified B group vitamins; E87.6 Hypokalemia; E83.39 Other disorders of phosphorus metabolism; D69.6 Thrombocytopenia, unspecified; W18.09XA Striking against other object with subsequent fall, initial encounter; Y92.480 Sidewalk as the place of occurrence of the external cause; E83.42 Hypomagnesemia; R40.2432 Glasgow coma scale score 3-8, at arrival to emergency department; Z87.891 Personal history of nicotine dependence

== ENCOUNTER 2019-08-12 18:09 | Emergency (ER) | payer OTHER ==
[~2019-08-12] VITALS: Ht 160 cm; Wt 48.3 kg
[~2019-08-12 18:09] MED LIST changes: +FERR325T3 PO; +FIRV50SO PO; +METF-791 PO; -PANTOPRAZOLE 40MG INJ (PROTONIX) (C9113) IV SCH; +PATIENT COMMENT
[2019-08-12] MEDS ORDERED: VITA500079 PO (18:39)
--- NOTE | 2019-08-12 18:48 | REP ---
REASON: Chest pain. COMPARISON: Multiple, the latest 06/24/2019 The technique utilized in obtaining the radiograph has magnified the cardiac silhouette and accentuated the interstitial markings. FINDINGS: The superior mediastinal structures are midline. The cardiac silhouette is unremarkable in size, shape, and position. The diaphragmatic surfaces of the lungs are regular, and the costophrenic angles are clear. The pulmonary santiago are clear. The imaged osseous structures are intact. IMPRESSION: There is no acute cardiopulmonary disease. Electronically Signed by Julian Atkins DO 08/12/2019 07:52 P
[2019-08-12] MEDS ORDERED: NS 1,000 ML IV ONE (19:00)
[2019-08-12] MEDS ORDERED: MAG SULF 1GM/100ML (MAG RUN) 1 GM in IV 1 EA IV ONE (19:00)
[2019-08-12 19:12] LABS: BASO # 0.1 10^3/uL (0.0-0.2); BASO % 1.2 % (0.0-1.0); EOS # 0.1 10^3/uL (0.0-0.5); HEMATOCRIT 46.8 % (36.0-47.0); HEMOGLOBIN 15.3 g/dl (12.0-15.5); LYMPH # 2.2 10^3/uL (1.5-5.0); MEAN CORPUSCULAR HEMOGLOBIN 30.7 pg (27.0-33.0); MEAN CORPUSCULAR HGB CONC 32.7 g/dl (32.0-36.5); MONO # 0.4 10^3/uL (0.0-0.8); NEUTROPHILS # 2.4 10^3/uL (1.5-8.5); NEUTROPHILS % 46.4 % (36.0-66.0); PLATELET COUNT, AUTOMATED 266 10^3/uL (150-450); RED BLOOD COUNT 4.98 10^6/uL (4.00-5.40); WHITE BLOOD COUNT 5.1 10^3/uL (4.0-10.0)
--- NOTE | 2019-08-12 19:46 | REPVR ---
PROCEDURE INFORMATION: Exam: CT Head Without Contrast Exam date and time: 08/12/2019 7:16 PM Age: 34 years old Clinical history: Altered mental status/memory loss; Additional info: AMS TECHNIQUE: Imaging protocol: Computed tomography of the head without contrast. Radiation optimization: All CT scans at this facility use at least one of these dose optimization techniques: automated exposure control; mA and/or kV adjustment per patient size (includes targeted exams where dose is matched to clinical indication); or iterative reconstruction. COMPARISON: CT Head without contrast 06/21/2019 5:21 PM FINDINGS: Brain: Mild cerebral and cerebellar volume loss, atypical for age. No hemorrhage or edema seen. Ventricles: The ventricles appear mildly prominent in keeping with volume loss. Bones/joints: No acute fracture seen. 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 Sinuses: Visualized sinuses are unremarkable. No fluid levels. Mastoid air cells: Visualized mastoid air cells are well aerated. Soft tissues: Unremarkable. IMPRESSION: No acute intracranial abnormality seen. Electronically signed by: Cydney Amos On 08/12/2019 19:45:50 PM
[2019-08-12 19:48] LABS: BLOOD UREA NITROGEN 6 MG/DL (7-18); CALCIUM LEVEL 8.9 MG/DL (8.5-10.1); CARBON DIOXIDE LEVEL 25 MEQ/L (21-32); CHLORIDE LEVEL 111 MEQ/L (98-107); CK-MB VALUE MASS 1.2 NG/ML (<3.6); CPK CREATINE PHOSPHOKINASE 109 U/L (26-192); CREATININE FOR GFR 0.59 MG/DL (0.55-1.30); ETHYL ALCOHOL (ETHANOL) 0.437 % (0.000-0.010); FREE T4 0.82 NG/DL (0.76-1.46); GLOMERULAR FILTRATION RATE > 60.0 (>60); GLUCOSE, FASTING 100 MG/DL (70-100); MAGNESIUM LEVEL 2.5 MG/DL (1.8-2.4); PHOSPHORUS LEVEL 3.4 MG/DL (2.5-4.9); SODIUM LEVEL 147 MEQ/L (136-145); TROPONIN I < 0.02 NG/ML (< 0.10)
[2019-08-12 21:29] LABS: ALBUMIN 3.3 GM/DL (3.2-5.2); ALT/SGPT 21 U/L (12-78); BILIRUBIN,DIRECT < 0.1 MG/DL (0.0-0.2); BILIRUBIN,TOTAL 0.3 MG/DL (0.2-1.0); LIPASE 61 U/L (73-393); TOTAL PROTEIN 8.2 GM/DL (6.4-8.2)
[2019-08-12 21:54] LABS: PROTHROMBIN TIME 12.9 SECONDS (11.8-14.0)
[2019-08-12 21:55] LABS: PARTIAL THROMBOPLASTIN TIME 34.4 SECONDS (25.0-38.4)
[2019-08-12 22:11] VITALS: BP 100/64
--- NOTE | 2019-08-13 22:03 | ECGEPIP ---
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
--- NOTE | 2019-08-14 02:23 | ED PDOC ---
Post-Departure Follow-Up documentation concerning labs results not documented by this provider but reviewed at time of visit. CBCD- WNL; noted abnormalities include sodium 147, Magnesium 2.5, potassium normal at 4.0, lipase 61, ETOH 0.437. no concerns for any emergent abnormalities. pt not clinically intoxicated. ROXANN OWENS [facility] Aug 14, 2019 02:23
== END 2019-08-12 22:39 | disposition home or self-care (01) ==
LOC: M ED 18:09
DX: F10.120 Alcohol abuse with intoxication, uncomplicated (principal); I49.3 Ventricular premature depolarization; E11.9 Type 2 diabetes mellitus without complications; Z87.19 Personal history of other diseases of the digestive system; Z86.19 Personal history of other infectious and parasitic diseases; Z79.899 Other long term (current) drug therapy; Z79.84 Long term (current) use of oral hypoglycemic drugs
CPT/HCPCS: 36415; 70450; 71045; 80048; 80076; 82550; 82553; 83690; 83735; 84100; 84439; 84443; 84484; 85025; 85610; 85730; 93005; 93041; 94760; 96365; 96366; 99285; G0480; J3475

== ENCOUNTER → 2020-02-28 | Outpatient (REF) ==
[~2020-02-28] MED LIST changes: -METF-791 PO; +METF-838 PO; +PANT40TA29 PO; -PANT40TA3 PO; +VITA500079 PO
== END ==
LOC: M LAB REF 17:09
DX: Z11.59 Encounter for screening for other viral diseases (principal)